=== PATIENT | female | born 1960 | race Caucasian/White ===

== ENCOUNTER 2022-10-09 08:09 | Emergency (ER) | payer SELFPAY ==
[2022-10-09 08:23] VITALS: BMI 31.6
[2022-10-09 08:27] VITALS: BP 151/86; PULSE 81; RESP 18; O2SAT 98
--- NOTE | 2022-10-09 08:46 | USCV_ITS ---
Chloe Candelario Age: 62 Gender: F : 1960 Exam Date: 10/09/2022 09:38 Ordering Phys: Rehan Chin Technologist: RA [place]am Location[place] [facility] [place]ication: RUE PAIN AND SWELLING X2 DAYS HISTORY: Upper extremity swelling. Upper extremity pain. PROCEDURES: Venous duplex imaging was performed in only the right upper extremity. The following venous structures were evaluated: internal jugular vein, subclavian vein, axillary vein, and brachial veins. In addition, the basilic vein, cephalic vein, radial vein, and ulnar vein. Serial compression, augmentation maneuvers, and spectral Doppler flow evaluation were performed. FINDINGS: No evidence of deep vein thrombosis or superficial thrombophlebitis in the right upper extremity. CONCLUSIONS No evidence of thrombus of the right upper extremity veins. Mike Velazquez MD (Electronically Signed) Final Date: 09 October 2022 10:47 S
--- NOTE | 2022-10-09 08:46 | XR_ITS ---
WS: [id number] Exam: XR shoulder RT min 2V* [id number] Date/Time of Exam: 10/09/2022 8:54 AM Reason For Exam: right shoulder pain No fracture or dislocation. Articular relationships are intact. Soft tissues are normal in appearance . XR/XR shoulder RT min 2V* [id number] IMPRESSION: 1. Negative right shoulder.
--- NOTE | 2022-10-09 08:48 | W.ED.EXTPRO ---
HPI - Extremity Problem General: Chief complaint: Extremity Injury, Upper Stated complaint: Right Shoulder pain, Hand swollen, Cant move arm Time Seen by Provider: 10/09/22 08:22 History of Present Illness: Patient is a 62-year-old female comes to the ED with right arm complaint. Symptoms started approximately 3 days ago and patient woke up with symptoms. She describes waking up and having right shoulder pain. She rates the pain a 10 out of 10. The pain radiates down right arm into hand and also radiates up shoulder and towards the neck. This morning she woke up and she was having some right hand swelling as well. She denies any injury or trauma to cause symptoms. She has been alternating ibuprofen and Tylenol to help with pain. Denies any other symptoms. Denies any history of right shoulder injuries, blood clots or DVTs. Associated symptoms: Deny chest pain, fever(s) or rash Review of Systems Const: Denies: fever(s), chills or fatigue Eyes: Denies: change in vision or eye discomfort ENMT: Denies: throat pain, odynophagia, nasal discharge or nasal congestion Card: Denies: chest pain, palpitations, edema, swelling of feet/ankles, dyspnea on exertion or orthopnea Resp: Denies: dyspnea, productive cough or non-productive cough GI: Denies: abdominal pain, nausea, vomiting, diarrhea, constipation or hematochezia : Denies: flank pain, dysuria or hematuria Musc: Reports: extremity pain (Right arm and shoulder pain) and extremity swelling (Right hand swelling); Denies: neck pain or back pain Skin/Breast: Denies: rash or new lesions Neuro: Denies: headache(s), numbness in extremities or weakness in extremities PFS ED PFSH: Medical History (Updated 10/10/22 @ 06:59 by WILLIAM Galvez) No pertinent family history Surgical History (Updated 10/10/22 @ 06:59 by WILLIAM Galvez) No pertinent past surgical history Physical Exam Const: COMMON NORMALS: patient oriented x3 HENMT: COMMON NORMALS: normocephalic HEAD & SCALP: normocephalic MOUTH: Normal oral and palatal mucosa present THROAT: posterior oropharynx normal and uvula midline Neck/C-Spine: COMMON NORMALS: supple GENERAL: Yes normal visual inspection Resp: COMMON NORMALS: normal respiratory effort, No retractions, No use of accessory muscles and clear to auscultation bilaterally AUSCULTATION: clear to auscultation bilaterally Cardio: COMMON NORMALS: regular rate, regular rhythm, S1 normal heart sound present, S2 normal heart sound present, No gallops present (Cardio), No clicks present (Cardio), No murmurs present (Cardio) and Peripheral pulses 2+ throughout RATE: regular rate RHYTHM: regular rhythm HEART SOUNDS: S1 normal heart sound present and S2 normal heart sound present PERIPHERAL PULSES: Peripheral pulses 2+ throughout GI: COMMON NORMALS: Normal to inspection, nondistended, normoactive bowel sounds present, Soft to palpation, non-tender and no masses PALPATION: Yes Soft to palpation : COMMON NORMALS: Yes no CVA tenderness BLADDER/KIDNEY EXAM: Yes no CVA tenderness Back/Pelvis: COMMON NORMALS: no CVA tenderness Extremity: RIGHT UPPER EXTREMITY: Yes shoulder joint (Tenderness to anterior aspect of AC joint) Right shoulder: Yes Right shoulder joint inspection exam (Normal inspection and no ecchymosis, swelling or deformity), Yes palpation, Yes Right shoulder joint ROM exam (Limited range of motion right shoulder due to pain) and Yes Right shoulder joint neurovascular exam (Intact) Neuro: COMMON NORMALS: patient oriented x3 GAIT: Yes Normal gait present Skin: GENERAL SKIN EXAM: dry skin Course Vital Signs: Vital signs: Vital Signs Pulse Rate 76 10/09/22 09:17 Respiratory Rate 19 H 10/09/22 09:17 Blood Pressure 151/86 10/09/22 09:17 Pulse Oximetry 97 10/09/22 09:17 Oxygen Delivery Me thod 10/09/22 09:17 MDM - Extremity (Nontraumatic) Medical Decision Making Patient is a 62-year-old female comes to the ED with right arm complaint. Symptoms started approximately 3 days ago and patient woke up with symptoms. She describes waking up and having right shoulder pain. She rates the pain a 10 out of 10. The pain radiates down right arm into hand and also radiates up shoulder and towards the neck. This morning she woke up and she was having some right hand swelling as well. She denies any injury or trauma to cause symptoms. She has been alternating ibuprofen and Tylenol to help with pain. Denies any other symptoms. Denies any history of right shoulder injuries, blood clots or DVTs. Vitals are stable. Exam patient shows tenderness over anterior aspect of the right AC joint. Limited range of motion due to pain. No ecchymosis, swelling or deformity noted. Neurovascular intact distally. Shoulder x-rays negative. Ultrasound venous duplex of right upper extremity showed no DVTs or blood clots. I placed an order with case management for patient to be referred to Ortho for follow-up on right shoulder pain. She was stable for discharge home. She understood and agreed with plan. Lab Data Radiology Impressions Shoulder X-Ray 10/09/22 08:46 IMPRESSION: 1. Negative right shoulder. Discharge Plan Discharge Patient Disposition: Home Clinical Impression: Right shoulder pain Qualifiers: Chronicity: acute Qualified Code(s): M25.511 - Pain in right shoulder Condition: Stable Prescriptions: New cyclobenzaprine 10 mg tablet 10 mg PO BID PRN (Reason: muscle spasm) Qty: 20 0RF No Action lisinopril 10 mg tablet 10 mg PO BEDTIME albuterol sulfate 0.63 mg/3 mL solution for nebulization 0.63 mg inhalation Q6H PRN (Reason: Shortness Of Breath) Aspir-81 81 mg Tablet,Delayed Release (Dr/Ec) 81 mg PO QAM ProAir HFA 90 mcg/actuation Hfa Aerosol Inhaler 2 puff INHALATION QID PRN (Reason: Shortness Of Breath) Zyrtec 10 mg Tablet 10 mg PO QAM biotin 400 mcg Tablet 200 mcg PO QAM Fish Oil (with DHA-EPA) Capsule 1 cap PO QAM Centrum Silver Women 8 mg iron-400 mcg-300 mcg Tablet 1 tab PO QAM Probiotic Blend 2 billion cell-50 mg Capsule 1 cap PO QAM Rx Instructions: give with meal/snack DuoNeb 0.5 mg-3 mg(2.5 mg base)/3 mL Solution For Nebulization 3 ml INHALATION Q6H PRN (Reason: Shortness Of Breath) Discharge Orders: Discharge ED (Routine); Ordered 10/09/22 Ordered By: Rehan Chin Discharge Diet: Regular Discharge Activity: Increase activity as tolerated Activity Restrictions/Additional Instructions: Follow-up with medical provider as directed. Case management should be contacting you in the next several days to set up an appointment with orthopedic doctor for follow-up of shoulder pain. Take medications as prescribed. Return to the ER or your medical provider if condition worsens. Please read and understand discharge instructions. Thank you for choosing [facility] for your healthcare needs today. Please realize this is an emergency room and that we are providing you with a medical screening exam and this may not be complete and all inclusive of all the testing and or work up that you may need to determine your ailment or severity of your illness. It is very important that you follow up as instructed or that you return to the Emergency Department should you have concerns or if your condition changes or worsens in any way. Coding Level of Care Code ED [employer] Product Consultant for Vikas Pennington
[2022-10-09] MEDS: HYDROcodone-acetaminophen 7.5-325 mg Tablet 1 TAB PO (09:16)
[2022-10-09 09:17] VITALS: BP 151/86; PULSE 76; RESP 19; O2SAT 97
--- NOTE | 2022-10-09 13:49 | DCPLANNER ---
Addendum entered by Tarsha Castillo 11/05/22 08:35: Patient had a follow up appointment scheduled with ortho - patient did attend appointment. Addendum entered by Tarsha Castillo 10/13/22 08:04: Patient has a follow up appointment scheduled for Thursday, November 03, 2022 at 1:[address] Chin at ortho. Original Note: cargo and ramp services manager had message to schedule a follow up appointment for patient with ortho. cargo and ramp services manager sent patients information to the front office staff at ortho. Patients information will be printed and reviewed. Clinic will call patient with appointment information.
== END 2022-10-09 11:01 | disposition home or self-care (01) ==
PROVIDERS: Emergency Provider Physician Assistant
DX: M25.511 Pain in right shoulder (principal); Z79.82 Long term (current) use of aspirin
CPT/HCPCS: 73030; 93971; 99284

== ENCOUNTER → 2022-11-11 08:48 | Outpatient (BNVA) | payer SELFPAY | PROVIDERS: Visit Provider Physician Assistant | DX: G95.9 Disease of spinal cord, unspecified (principal) | CPT/HCPCS: 72050 ==

== ENCOUNTER 2023-01-24 22:31 | Emergency (ER) | payer SELFPAY ==
[2023-01-24 22:54] VITALS: BP 151/76; PULSE 89; RESP 20; TEMP 36.7; O2SAT 95; BMI 30.7
--- NOTE | 2023-01-25 00:13 | ED_ITS ---
HPI - Skin/Abscess/Foreign Bdy General: Chief complaint: Skin/Abscess/Foreign Body Stated complaint: Bug bites Time Seen by Provider: 01/24/23 23:15 Source: patient Mode of arrival: ambulatory Limitations: no limitations History of Present Illness: Patient presents emergency department today for evaluation treatment of large areas of swelling, redness, and itching to her body. Patient states that ye sterday evening she noticed several spots of erythema which have increased in size and intensity of itching. Patient states she has allergy/allergic reaction to wasp and bee stings but does not remember being stung. She also denies feeling any bites. She denies any change in soaps, lotions, medications, or foods to her knowledge. Patient has large areas of erythema and swelling affecting her right hand, right wrist, left inferior neck, left upper arm, right posterior thigh x2. None of these areas seem to have a central puncta concerning for a bite. There is no blistering of these areas. They are warm to touch and extremely itchy. Patient states she took Benadryl at home without improvement. She denies any sensation of lip, tongue, or throat swelling. She has COPD but notes no difference in breathing from her baseline. She has not been ill recently. She denies fevers. Review of Systems General: Reports: 10 or more systems reviewed and unremarkable except in HPI and below PFSH ED PFSH: Medical History No pertinent family history Surgical History No pertinent past surgical history Physical Exam Const: COMMON NORMALS: no acute distress, average body habitus and patient oriented x3 HENMT: COMMON NORMALS: normocephalic, atraumatic, hearing grossly normal bilaterally, Normal external nose present and moist oral mucous membranes HEAD & SCALP: normocephalic and atraumatic NOSE: Normal external nose present OTHER: No angioedema. Airway patent. Eye: COMMON NORMALS: Equal, round and reactive pupils present, EOMs intact bilaterally and conjunctivae normal CONJUNCTIVA: Yes conjunctivae normal PUPIL: Yes Equal, round and reactive pupils present Neck/C-Spine: COMMON NORMALS: no JVD Lymph: LYMPHATIC: no lymphadenopathy noted Resp: COMMON NORMALS: normal respiratory effort, No retractions and No use of accessory muscles Cardio: COMMON NORMALS: no JVD, regular rate and regular rhythm RATE: regular rate RHYTHM: regular rhythm GI: COMMON NORMALS: Normal to inspection, nondistended, normoactive bowel sounds present : COMMON NORMALS: Yes no CVA tenderness BLADDER/KIDNEY EXAM: Yes no CVA tenderness Back/Pelvis: COMMON NORMALS: no CVA tenderness and thoraco-lumbar ROM normal Extremity: COMMON NORMALS: normal to inspection, full ROM and capillary refill normal Neuro: COMMON NORMALS: patient oriented x3 Psych: COMMON NORMALS: mental status grossly normal, Normal thought process present, cooperative, normal affect and activity/motor behavior normal THOUGHT PROCESS: Normal thought process present Skin: NARRATIVE SKIN EXAM: Patient has large areas of confluent erythema and swelling noted to several spots on the fingers of the right hand, right distal, anterior forearm, left lateral inferior neck, left inner, upper arm, right mid thigh, right proximal calf. These areas are warm to touch and firm. Average size approximately 6 to 7 cm in diameter. Course Vital Signs: Vital signs: Vital Signs Temperature 98.0 F 01/24/23 22:54 Pulse Rate 90 01/25/23 02:50 Respiratory Rate 18 01/25/23 02:50 Blood Pressure 151/76 01/24/23 22:54 Pulse Oximetry 96 01/25/23 02:50 Oxygen Delivery Me thod Room Air 01/25/23 00:15 MDM - Skin/Abscess/Foreign Bdy Medicial Decision Making Patient was treated with IV steroids, Pepcid, and Benadryl here in the emergency department. She did have some improvement of her symptoms including noticeable relief of itching, slight decrease in swelling, and lightening of erythema. I did get a second opinion from Dr. Batista regarding this urticarial rash. He recommends long taper dose of prednisone in addition to continued histamine use. Patient was prescribed Pepcid and I encouraged her to use both first and second generation antihistamines. I requested a follow-up appoint with her primary care provider in the next few days for a recheck. She was given strict return precautions for signs of angioedema or any difficulty breathing. Patient verbalized understanding and agreement to treatment plan. Differential Diagnosis Likely dermatophytosis, urticaria, allergic reaction to drug, cellulitis, insect bites and contact dermatitis Lab Data 01/25/23 00:52 01/25/23 00:52 Laboratory Results WBC 9.3 10^3/uL (4.0-10.0) 01/25/23 00:52 RBC 4.62 10^6/uL (4.1-5.3) 01/25/23 00:52 Hgb 13.5 g/dL (11.5-15.3) 01/25/23 00:52 Hct 41.0 % (37.0-47.0) 01/25/23 00:52 MCV 88.7 fl (81-99) 01/25/23 00:52 MCH 29.2 pg (28.0-34.0) 01/25/23 00:52 MCHC 32.9 g/dL (30.0-36.0) 01/25/23 00:52 RDW 13.2 % (12.1-15.1) 01/25/23 00:52 Plt Count 251 10^3/cmm (130-400) 01/25/23 00:52 MPV 10.7 fL (7.4-10.4) H 01/25/23 00:52 Neut % (Auto) 60.3 % 01/25/23 00:52 Lymph % (Auto) 24.3 % 01/25/23 00:52 [place] % (Auto) 10.4 % 01/25/23 00:52 Eos % (Auto) 4.3 % 01/25/23 00:52 Baso % (Auto) 0.5 % 01/25/23 00:52 Neut # (Auto) 5.62 10^3/uL (1.8-7.7) 01/25/23 00:52 Lymph # (Auto) 2.3 10^3/uL (0.8-4.8) 01/25/23 00:52 [place] # (Auto) 1.0 10^3/uL (0.2-0.9) H 01/25/23 00:52 Eos # (Auto) 0.4 10^3/uL (0.0-0.8) 01/25/23 00:52 Baso # (Auto) 0.1 10^3/uL (0.0-0.1) 01/25/23 00:52 Nucleated RBC % (auto) 0 % 01/25/23 00:52 Nucleated RBCs # 0.0 /100WBC 01/25/23 00:52 ESR 24 mm/hr (0-15) H 01/25/23 00:52 Sodium 134 mmol/L (136-145) L 01/25/23 00:52 Potassium 4.3 mmol/L (3.5-5.1) 01/25/23 00:52 Chloride 99 mmol/L (98-107) 01/25/23 00:52 Carbon Dioxide 23 mmol/L (22-29) 01/25/23 00:52 Anion Gap 16.3 (5-19) 01/25/23 00:52 BUN 10 mg/dL (8-23) 01/25/23 00:52 Creatinine 0.6 mg/dL (0.5-0.9) 01/25/23 00:52 GFR Calculation 102.0 mL/min (90-130) 01/25/23 00:52 Glucose 103 mg/dL (65-115) 01/25/23 00:52 Calculated Osmolality 277 mOsm/kg (285-295) L 01/25/23 00:52 Calcium 9.2 mg/dL (8.5-10.5) 01/25/23 00:52 Total Bilirubin 0.2 mg/dL (0.15-1.2) 01/25/23 00:52 AST 17 U/L (0-32) 01/25/23 00:52 ALT 26 U/L (0-33) 01/25/23 00:52 Alkaline Phosphatase 67 U/L (35-105) 01/25/23 00:52 C-Reactive Protein 5.5 mg/L (0.0-4.9) H 01/25/23 00:52 Total Protein 7.1 g/dL (6.6-8.7) 01/25/23 00:52 Albumin 4.4 g/dL (3.5-5.2) 01/25/23 00:52 Globulin 2.7 g/dL (1.3-4.6) 01/25/23 00:52 Discharge Plan Discharge Patient Disposition: Home Clinical Impression: Urticaria Condition: Stable Prescriptions: New prednisone 20 mg tablet See Rx Instructions .ROUTE .COMPLEX Qty: 29 0RF Rx Instructions: take 3 tabs daily for 5 days. Then take 2 tablets daily for 5 days. Then take one tablet daily for 4 days. Pepcid 20 mg tablet 20 mg PO BID 14 Days Qty: 28 0RF No Action prednisone 20 mg tablet 20 mg PO DAILY Qty: 15 0RF Rx Instructions: 60 mg x 3 days 40 mg x 2 days 20 mg x 2 days methylprednisolone [Medrol (Ramu)] 4 mg tablets,dose pack See Rx Instructions PO PER PKG DIR Qty: 21 0RF Rx Instructions: PO PER PKG DIR lisinopril 10 mg tablet 10 mg PO BEDTIME albuterol sulfate 0.63 mg/3 mL solution for nebulization 0.63 mg inhalation Q6H PRN (Reason: Shortness Of Breath) Aspir-81 81 mg Tablet,Delayed Release (Dr/Ec) 81 mg PO QAM ProAir HFA 90 mcg/actuation Hfa Aerosol Inhaler 2 puff INHALATION QID PRN (Reason: Shortness Of Breath) Zyrtec 10 mg Tablet 10 mg PO QAM biotin 400 mcg Tablet 200 mcg PO QAM Fish Oil (with DHA-EPA) Capsule 1 cap PO QAM Centrum Silver Women 8 mg iron-400 mcg-300 mcg Tablet 1 tab PO QAM Probiotic Blend 2 billion cell-50 mg Capsule 1 cap PO QAM Rx Instructions: give with meal/snack DuoNeb 0.5 mg-3 mg(2.5 mg base)/3 mL Solution For Nebulization 3 ml INHALATION Q6H PRN (Reason: Shortness Of Breath) cyclobenzaprine 10 mg tablet 10 mg PO BID PRN (Reason: muscle spasm) Qty: 20 0RF Discharge Orders: Discharge ED (Routine); Ordered 01/25/23 Ordered By: Yanci Lunsford Discharge Diet: Usual diet Discharge Activity: Increase activity as tolerated Patient Instructions: Allergic Reaction, Urticaria (ED) Activity Restrictions/Additional Instructions: Continue taking Benadryl 25 to 50 mg every 6 hours. We also encourage a daily antihistamine such as Zyrtec, Claritin, or Nicolasa. We are providing you a 2-w [place] course of prednisone as well as Pepcid. Take all of these medications daily as prescribed to help with itching and urticaria. If for any reason you develop facial swelling, lip swelling, tongue swelling, throat swelling, difficulty breathing or chest tightness you need to be seen and reevaluated in the emergency department immediately. We recommend a follow-up appoint with your primary care physician in the next 5 to 7 days for recheck. Coding Level of Care Code ED Resource Engineer for Vikas Pennington
[2023-01-25 00:15] VITALS: PULSE 92; RESP 20; O2SAT 98
[2023-01-25] MEDS: diphenhydrAMINE 50 mg/mL SDV 1mL IVP (00:54)
[2023-01-25] MEDS: dexamethasone 10 mg/mL INJ IM (00:57)
[2023-01-25 00:58] LABS: Basophils # 0.1 10^3/uL (0.0-0.1); Basophils % 0.5 %; Eosinophils # 0.4 10^3/uL (0.0-0.8); Eosinophils % 4.3 %; Hemoglobin 13.5 g/dL (11.5-15.3); Lymphocytes # 2.3 10^3/uL (0.8-4.8); Lymphocytes % 24.3 %; Mean Corpuscular HGB Conc 32.9 g/dL (30.0-36.0); Mean Corpuscular Hemoglobin 29.2 pg (28.0-34.0); Mean Corpuscular Volume 88.7 fl (81-99); Mean Platelet Volume 10.7 fL (7.4-10.4); Monocytes % 10.4 %; Neutrophils # 5.62 10^3/uL (1.8-7.7); Neutrophils % 60.3 %; Nucleated Red Blood Cells % 0 %; Platelet Count 251 10^3/cmm (130-400); Red Blood Count 4.62 10^6/uL (4.1-5.3); Red Cell Distribution Width 13.2 % (12.1-15.1); White Blood Count 9.3 10^3/uL (4.0-10.0)
[2023-01-25] MEDS: famotidine 20 mg/2 mL INJ 40 MG IVP (00:59)
[2023-01-25 01:25] LABS: Alanine Aminotransferase 26 U/L (0-33); Albumin Level 4.4 g/dL (3.5-5.2); Alkaline Phosphatase 67 U/L (35-105); Anion Gap 16.3 (5-19); Aspartate Amino Transferase 17 U/L (0-32); Blood Urea Nitrogen 10 mg/dL (8-23); C Reactive Protein 5.5 mg/L (0.0-4.9); Calcium 9.2 mg/dL (8.5-10.5); Carbon Dioxide 23 mmol/L (22-29); Chloride 99 mmol/L (98-107); Globulin 2.7 g/dL (1.3-4.6); Glucose 103 mg/dL (65-115); Osmolality Calculated 277 mOsm/kg (285-295); Potassium 4.3 mmol/L (3.5-5.1); Sodium 134 mmol/L (136-145); Total Bilirubin 0.2 mg/dL (0.15-1.2); Total Protein 7.1 g/dL (6.6-8.7)
[2023-01-25 01:34] LABS: Erythrocyte Sedimentation Rate 24 mm/hr (0-15)
[2023-01-25 02:50] VITALS: PULSE 90; RESP 18; O2SAT 96
== END 2023-01-25 02:47 | disposition home or self-care (01) ==
PROVIDERS: Emergency Provider Physician Assistant
DX: L50.9 Urticaria, unspecified (principal); Z79.82 Long term (current) use of aspirin
CPT/HCPCS: 80053; 85025; 85651; 86140; 96374; 96375; 99284; J1100; J1200; J3490

== ENCOUNTER → 2023-04-25 11:19 | Outpatient (BNVA) | payer OTHER, SELFPAY | PROVIDERS: PCP Family Medicine; Visit Provider Family Medicine | DX: T79.7XXA Traumatic subcutaneous emphysema, initial encounter (principal); X58.XXXA Exposure to other specified factors, initial encounter | CPT/HCPCS: 70360; 71046 ==

== ENCOUNTER 2023-04-25 12:13 | Emergency (ER) | payer OTHER, SELFPAY ==
[2023-04-25 12:20] VITALS: BP 160/89; PULSE 77; RESP 18; TEMP 36.6; O2SAT 97; BMI 32.5
--- NOTE | 2023-04-25 12:45 | ED_ITS ---
HPI - SOB/Dyspnea General: Chief Complaint: Shortness of Breath/Dyspnea Stated Complaint: right side neck/clavicle swollen Time Seen by Provider: 04/25/23 12:21 Source: patient Mode of arrival: ambulatory History of Present Illness: HPI Narrative: 63-year-old female presents emergency room complaining of shortness of breath right-sided rib pain when she takes a deep breath. She had a little bit of sup raclavicular swelling on the right as well she was seen in the urgent care clinic soft tissue of the neck and a chest x-ray was ordered. She was told she had bilateral ear infections when she was seen there as well. Symptoms began a couple of days ago she states yesterday she was doing some stretching and felt a popping sensation along her right ribs has had pain with inspiration since then. MD elicited complaint: shortness of breath and cough Onset (ago): day(s) (1-2) Timing: intermittent Severity: mild Exacerbating factors: coughing and inspiration Relieving factors: rest Associated symptoms: Reports chest pain, cough and fever(s) (Subjective fever yesterday); Deny abdominal pain or chest congestion Review of Systems Const: Reports: fever(s) (Subjective fever yesterday); Denies: chills Card: Reports: chest pain Resp: Reports: dyspnea and non-productive cough; Denies: chest congestion GI: Denies: abdominal pain : Denies: dysuria, urinary frequency or urinary urgency Musc: Denies: neck pain or back pain Skin/Breast: Denies: rash PFSH ED PFSH: Medical History No pertinent family history Surgical History No pertinent past surgical history Physical Exam Const: GENERAL APPEARANCE: cooperative and comfortable ORIENTATION/CONSCIOUSNESS: Yes awake, Yes oriented to person, Yes oriented to place and Yes oriented to time HENMT: COMMON NORMALS: normocephalic, atraumatic, hearing grossly normal bilaterally, external ears normal, EAC's normal and TM's normal bilaterally HEAD & SCALP: normocephalic and atraumatic EXTERNAL EAR: Yes external ears normal EXTERNAL AUDITORY CANAL: EAC's normal TYMPANIC MEMBRANE: TM's normal bilaterally Lymph: LYMPHATIC: no lymphadenopathy noted and no lymphedema noted Chest: OTHER: Reproducible pain along the lower portion of the ribs on the right side there is 1 area there is a small bruise no sign of rash no indication of zoster. Resp: COMMON NORMALS: normal respiratory effort, No retractions, No use of accessory muscles and clear to auscultation bilaterally AUSCULTATION: clear to auscultation bilaterally Cardio: COMMON NORMALS: regular rate, regular rhythm and No murmurs present (Cardio) RATE: regular rate RHYTHM: regular rhythm GI: COMMON NORMALS: Soft to palpation and No hepatosplenomegaly present AUSCULTATION: Yes normoactive bowel sounds PALPATION: Yes Soft to palpation, No Tenderness to palpation present (GI), No Guarding due to palpation present (GI) and Yes No hepatosplenomegaly present Extremity: COMMON NORMALS: normal to inspection, capillary refill normal, no clubbing, cyanosis or edema, no calf tenderness and no pedal edema Neuro: SENSORIUM/ORIENTATION: Yes oriented to person, Yes oriented to place and Yes oriented to time Skin: COMMON NORMALS: no rashes or lesions noted GENERAL SKIN EXAM: no rashes or lesions noted Course Vital Signs: Vital signs: Vital Signs Temperature 97.8 F 04/25/23 12:20 Pulse Rate 74 04/25/23 13:12 Respiratory Rate 18 04/25/23 13:12 Blood Pressure 179/100 04/25/23 13:12 Pulse Oximetry 100 04/25/23 13:12 Oxygen Delivery Me thod Room Air 04/25/23 13:08 MDM - SOB/Dyspnea Medical Decision Making Reviewed chest x-ray and soft tissue neck there is no evidence subcutaneous air on exam is good breath sounds bilaterally pain is reproducible is palpation lightly along the right anterior axillary line. No sign of zoster on exam of the skin. Pain is also reproducible with deep inspiration. No evidence of pneumothorax on the chest x-ray. Soft tissue fullness medially supraclavicular on the right side. There is some soft tissue fullness supraclavicularly on the right but there is no evidence of lymphadenopathy on palpation. No subcutaneous air on palpation or auscultation. Pain medications for musculoskeletal chest wall pain. Medical Records I reviewed the patient's medical records. Lab Data I reviewed the patient's lab results. All radiology interpretation(s) finalized by discharge Discharge Plan Discharge Patient Disposition: Home Clinical Impression: Chest pain, musculoskeletal, Fullness of supraclavicular fossa Condition: Stable Prescriptions: New tramadol 50 mg tablet 50 mg PO Q6H PRN (Reason: pain) Qty: 10 0RF No Action pravastatin 40 mg tablet 40 mg PO amoxicillin-pot clavulanate 875-125 mg tablet 1 tab PO BID 7 Days Qty: 14 0RF lisinopril 10 mg tablet 10 mg PO BEDTIME albuterol sulfate 0.63 mg/3 mL solution for nebulization 0.63 mg inhalation Q6H PRN (Reason: Shortness Of Breath) ProAir HFA 90 mcg/actuation Hfa Aerosol Inhaler 2 puff INHALATION QID PRN (Reason: Shortness Of Breath) Zyrtec 10 mg Tablet 10 mg PO QAM Fish Oil (with DHA-EPA) Capsule 1 cap PO QAM Centrum Silver Women 8 mg iron-400 mcg-300 mcg Tablet 1 tab PO QAM Probiotic Blend 2 billion cell-50 mg Capsule 1 cap PO QAM Rx Instructions: give with meal/snack cyclobenzaprine 10 mg tablet 10 mg PO BID PRN (Reason: muscle spasm) Qty: 20 0RF Discharge Orders: Discharge ED (Routine); Ordered 04/25/23 Ordered By: Sacha Finn Referrals: Vanessa Alvarado DO [Primary Care Provider] - Discharge Diet: Usual diet Discharge Activity: Increase activity as tolerated Patient Instructions: Opioid Safety, Pain Management Activity Restrictions/Additional Instructions: You are seen today after chest x-ray and x-ray of the neck were done to evaluate for possible pneumothorax. There is no pneumothorax and no subcutaneous air. Your pain is reproducible with inspiration and palpation of the right lower ribs of the chest. Use pain medications as needed. Follow-up with your primary care doctor if swelling above the right clavicle persists. Coding Level of Care Code ED Weatherization And Housing Inspector for Vikas Pennington
[2023-04-25 13:08] VITALS: BP 179/100; PULSE 74; RESP 18; O2SAT 100
[2023-04-25 13:12] VITALS: BP 179/100; PULSE 74; RESP 18; O2SAT 100
== END 2023-04-25 13:12 | disposition home or self-care (01) ==
PROVIDERS: Emergency Provider Family Medicine; PCP Family Medicine
DX: R07.89 Other chest pain (principal)
CPT/HCPCS: 99283

== ENCOUNTER 2023-04-30 08:52 | Outpatient (CLI) | payer OTHER, SELFPAY ==
[2023-04-30 09:29] VITALS: PULSE 84; RESP 18; O2SAT 98
[2023-04-30] MEDS: albuterol 2.5 mg/3 mL Neb INHALATION (09:32)
[2023-04-30 09:34] VITALS: PULSE 84
== END 2023-04-30 08:53 | disposition home or self-care (01) ==
PROVIDERS: PCP Family Medicine; Visit Provider Dermatology
DX: J44.9 Chronic obstructive pulmonary disease, unspecified (principal)
CPT/HCPCS: 94060; 94618; 94729; J7613

== ENCOUNTER 2023-05-26 13:47 | Outpatient (CLI) | payer OTHER, SELFPAY ==
--- NOTE | 2023-05-26 | US_ITS ---
WS: [id number] INDICATION: Neck swelling TECHNIQUE: Ultrasound soft tissue neck of concern FINDINGS: Ultrasound soft tissue area of concern RIGHT neck. Normal underlying subcutaneous soft tiss ues. No cystic or solid lesions. No suspicious findings. IMPRESSION: Normal exam
--- NOTE | 2023-05-26 14:22 | MM_ITS ---
WS: [id number] BILATERAL 3D TOMOSYNTHESIS DIGITAL SCREENING MAMMOGRAPHY WITH CAD CLINICAL INFORMATION: SCREENING HISTORY: Screening mammogram. No current complaints. COMPARISON: 2020 TECHNIQUE: Bilateral CC and MLO views. FINDINGS: Scattered fibroglandular densities bilaterally. No suspicious focal mass, asymmetry, calcifications, or architectural distortion. No evidence of malignancy. IMPRESSION: MM/[place] [id number] BI-RADS: 1-Negative FOLLOW UP: 1 Year Follow-up Recommend return to annual screening mammography.
== END 2023-05-26 13:48 | disposition home or self-care (01) ==
LOC: RAD 13:47
PROVIDERS: PCP Family Medicine; Visit Provider Family Medicine
DX: Z12.31 Encounter for screening mammogram for malignant neoplasm of breast (principal); R22.1 Localized swelling, mass and lump, neck
CPT/HCPCS: 76882; 77063; 77067

== ENCOUNTER 2023-07-25 10:50 | Emergency (ER) | payer OTHER, SELFPAY ==
[2023-07-25] VITALS (56 sets, daily range): BP systolic 118–178; BP diastolic 69–120; PULSE 62–103; RESP 1–25; TEMP 36.9; O2SAT 90–98
--- NOTE | 2023-07-25 10:56 | XRR_ITS ---
PROCEDURE INFORMATION: Exam: XR Chest Exam date and time: 07/25/2023 11:24 AM Age: 63 years old Clinical indication: Pain; Angina pectoris; Patient HX: Chest tightness; Low o2; HX copd TECHNIQUE: Imaging protocol: Radiologic exam of the chest. Views: 1 view. COMPARISON: CR XR chest 2V insp/exp [id number] 04/25/2023 11:42 AM FINDINGS: Lungs: Unremarkable. No consolidation. Pleural spaces: Unremarkable. No pleural effusion. No pneumothorax. Heart/Mediastinum: Borderline cardiomegaly. Bones/joints: Unremarkable. XR/XR chest 1V portable [id number] IMPRESSION: No acute findings.
--- NOTE | 2023-07-25 11:01 | ECG_ITS ---
[facility] Test Date: 2023-07-25 Pat Name: Chloe Candelario Department: Room: Gender: Female Information Technology Security Analyst: : 1960 Requested By: Armando Encinas Order Number: [id number] Krishan MD: Miles Laboy M.D. Measurements Intervals [place] Rate: 70 P: 67 VT: 152 QRS: 66 QRSD: 104 T: 58 QT: 367 QTc: 398 Interpretive Statements SINUS RHYTHM No previous ECG available for comparison Electronically Signed On 07-27-2023 7:57:12 AMERICAN HISTORY TEACHER by Miles Laboy M.D. [id number]
--- NOTE | 2023-07-25 11:19 | W.ED.CHESTPA ---
HPI - Chest Pain General: Chief Complaint: Chest Pain Stated Complaint: chest tightness, left hip and knee pain Time Seen by Provider: 07/25/23 10:55 History of Present Illness: 63-year-old female presents to the emergency department with complaints of chest tightness for the previous 2 days. She states her chest tightness is on the right side of her chest and does not radiate anywhere. She describes the pain as a 2 out of 10 tightness. She states she is also had an intermittent cough for the previous 3 weeks that is nonproductive. She states she has a history of COPD. She denies nausea vomiting dizziness or lightheaded feeling. She states she is not more short of breath than she normally is. She does have a history of hypertension and hyperlipidemia. Review of Systems General: Reports: 10 or more systems reviewed and unremarkable except in HPI and below Card: Reports: chest pain Resp: Reports: non-productive cough and wheezing [facility] ED PFSH: Medical History No pertinent family history Surgical History No pertinent past surgical history Physical Exam Narrative: EXAM NARRATIVE: Constitutional: the patient appears well nourished and with normal development. Vital signs reviewed as documented. HENMT: Normocephalic, atraumatic. Extermal ears with normal appearance without drainage. Nose without drainage, normal appearance. Mucus membranes moist. Neck is supple, No jugular venous distension, trachea is midline, no appreciable carotid bruits. No lymphadenopathy. No meningeal signs. Flexion, extension and lateral rotation is without pain. Eyes: Pupils are equal, round, reactive to light and accommodation. No scleral icterus. Extra-ocular movement are intact. Thorax is symmetrical and with equal rise and fall with respirations. Resp: Lungs are clear to auscultation. No wheezes, rales, crackles or ronchi at present. Cardio: Regular rate and rhythm. Positive S1, S2. No appreciable murmurs, rubs or gallops. GI: Abdominal exam reveals normal bowel sounds to all quadrants. No organomegaly. No obvious palpable masses noted. No hepatomegally appreciated. Soft, nontender to palpation. Extremity: Extremities are non-edematous and both femoral and pedal pulses are 2+ and equal bilaterally. Moves all extremities well, sensation in all extremities. Neuro: Alert and oriented x4, person, place, time and situation. Cranial nerves II through XII are grossly intact, there is no focal neurological deficits that I can appreciate at present. Motor strength in the upper and lower extremities are equal and bilateral 5/5. Psych: Cooperative, calm, normal thought process, appropriate judgment. Skin: No lesions, rashes. No gross abnormalities noted. Back: Symmetrical, no obvious deformity, No CVA tenderness Course Vital Signs: Vital signs: Vital Signs Temperature 98.5 F 07/25/23 10:54 Pulse Rate 78 07/25/23 15:25 Respiratory Rate 23 H 07/25/23 15:25 Blood Pressure 121/76 07/25/23 15:30 Pulse Oximetry 93 07/25/23 15:25 Oxygen Delivery Me thod Room Air 07/25/23 11:46 MDM - Chest Pain Medical Decision Making Physical exam completed and documented, I will obtain serial cardiac enzymes, serial twelve-lead EKGs, chest x-ray, CBC, CMP, urinalysis, B-type natriuretic peptide, PT/PTT/INR, and a chest x-ray. I provide cardiac dose aspirin if indicated and nitroglycerin administration if indicated. I have reviewed any pervious and pertinent medical records for assist in obtaining beneficial medical information to improved the care and treatment of the patient. Medical Records I reviewed the patient's medical records. Lab Data I reviewed the patient's lab results. 07/25/23 11:10 07/25/23 11:10 Radiology Impressions Chest X-Ray 07/25/23 10:56 IMPRESSION: No acute findings. Hip/Pelvis X-Ray 07/25/23 14:13 IMPRESSION: No acute findings. Knee X-Ray 07/25/23 14:19 IMPRESSION: No acute findings. Laboratory Results WBC 7.22 10^3/uL (3.29-11.43) 07/25/23 11:10 RBC 4.15 10^6/uL (3.85-5.65) 07/25/23 11:10 Hgb 12.20 g/dL (11.27-16.99) 07/25/23 11:10 Hct 36.3 % (36-47) 07/25/23 11:10 MCV 87.5 fl (85-98) 07/25/23 11:10 MCH 29.4 pg (27-33) 07/25/23 11:10 MCHC 33.6 g/dL (30-55) 07/25/23 11:10 RDW 12.9 % (12.1-15.1) 07/25/23 11:10 Plt Count 297 10^3/cmm (157-399) 07/25/23 11:10 MPV 10.4 fL (7.4-10.4) 07/25/23 11:10 Neut % (Auto) 58.9 % 07/25/23 11:10 Lymph % (Auto) 28.9 % 07/25/23 11:10 [place] % (Auto) 9.7 % 07/25/23 11:10 Eos % (Auto) 1.8 % 07/25/23 11:10 Baso % (Auto) 0.4 % 07/25/23 11:10 Neut # (Auto) 4.25 10^3/uL (1.8-7.7) 07/25/23 11:10 Lymph # (Auto) 2.1 10^3/uL (0.8-4.8) 07/25/23 11:10 [place] # (Auto) 0.7 10^3/uL (0.2-0.9) 07/25/23 11:10 Eos # (Auto) 0.1 10^3/uL (0.0-0.8) 07/25/23 11:10 Baso # (Auto) 0.0 10^3/uL (0.0-0.1) 07/25/23 11:10 Nucleated RBC % (auto) 0 % 07/25/23 11:10 Nucleated RBCs # 0.0 /100WBC 07/25/23 11:10 Sodium 131 mmol/L (136-145) L 07/25/23 11:10 Potassium 4.4 mmol/L (3.5-5.1) 07/25/23 11:10 Chloride 94 mmol/L (98-107) L 07/25/23 11:10 Carbon Dioxide 24 mmol/L (22-29) 07/25/23 11:10 Anion Gap 17.4 (5-19) 07/25/23 11:10 BUN 12 mg/dL (8-23) 07/25/23 11:10 Creatinine 0.5 mg/dL (0.5-0.9) 07/25/23 11:10 GFR Calculation 125.4 mL/min (90-130) 07/25/23 11:10 Glucose 96 mg/dL (65-115) 07/25/23 11:10 Calculated Osmolality 272 mOsm/kg (285-295) L 07/25/23 11:10 Calcium 10.1 mg/dL (8.5-10.5) 07/25/23 11:10 Total Bilirubin 0.2 mg/dL (0.15-1.2) 07/25/23 11:10 AST 17 U/L (0-32) 07/25/23 11:10 ALT 17 U/L (0-33) 07/25/23 11:10 Alkaline Phosphatase 78 U/L (35-105) 07/25/23 11:10 Troponin T Baseline 8 ng/L (0-10) 07/25/23 11:10 Troponin T 120 Minute 6.71 ng/L (0-10) 07/25/23 13:10 Delta Troponin T -1.29 ABS# (0-10) L 07/25/23 13:10 NT-Pro-B Natriuret Pep 64 pg/mL (0-125) 07/25/23 11:10 Total Protein 7.0 g/dL (6.6-8.7) 07/25/23 11:10 Albumin 4.4 g/dL (3.5-5.2) 07/25/23 11:10 Globulin 2.6 g/dL (1.3-4.6) 07/25/23 11:10 All radiology interpretation(s) finalized by discharge EKG Data EKG 1: Interpretation: Twelve-lead EKG obtained at 1101 and reviewed at 1101 demonstrates normal sinus rhythm with a ventricular rate of 70 bpm, NH interval 152, QRS duration 104, QT 367, QTc [address] elevation or depression to demonstrate acute ischemia or infarction at present. EKG 2: Interpretation: Twelve-lead EKG obtained at 1303 viewed 1305 demonstrates normal sinus rhythm with a ventricular rate of 72 bpm, NH interval 135, QRS duration 96, QT 383, QTc 407. There is no ST elevation or depression to demonstrate acute ischemia or infarction at present. Discharge Plan Discharge Patient Disposition: Home Clinical Impression: COPD exacerbation, Atypical chest pain, Acute myofascial pain, Arthralgia of hip, left, Arthralgia of left knee Condition: Stable Prescriptions: New prednisone 20 mg tablet 40 mg PO DAILY 5 Days Qty: 10 0RF albuterol sulfate 90 mcg/actuation HFA aerosol inhaler 2 inh inhalation Q6H PRN (Reason: shortness of breath or wheezing) Qty: 8.5 0RF meloxicam 15 mg tablet 15 mg PO DAILY Qty: 14 0RF guaifenesin 1,200 mg tablet extended release 12hr 1,200 mg PO BID Qty: 14 0RF No Action pravastatin 40 mg tablet 40 mg PO QPM ipratropium-albuterol 0.5 mg-3 mg(2.5 mg base)/3 mL solution for nebulization 3 ml INHALATION Q6H PRN (Reason: Shortness Of Breath Or Wheezing) lisinopril 20 mg tablet 20 mg PO QPM Acetaminophen Extra Strength 500 mg Tablet 1,000 mg PO QPM Vitamin D3 125 mcg (5,000 unit) Tablet 125 mcg PO DAILY Aleve 220 mg Capsule 440 mg PO DAILY Fish Oil 120 mg-180 mg- 60 mg-1,200 mg Capsule,Delayed Release(Dr/Ec) 1 cap PO DAILY albuterol sulfate 0.63 mg/3 mL solution for nebulization 0.63 mg inhalation Q6H PRN (Reason: Shortness Of Breath) albuterol sulfate [ProAir HFA] 90 mcg/actuation Hfa Aerosol Inhaler 2 puff INHALATION QID PRN (Reason: Shortness Of Breath) cetirizine [Zyrtec] 10 mg Tablet 10 mg PO QAM Centrum Silver Women 8 mg iron-400 mcg-300 mcg Tablet 1 tab PO QAM Probiotic Blend 2 billion cell-50 mg Capsule 1 cap PO QAM Rx Instructions: give with meal/snack tramadol 50 mg tablet 50 mg PO Q6H PRN (Reason: pain) Qty: 10 0RF Discharge Orders: Discharge ED (Routine); Ordered 07/25/23 Ordered By: Armando Encinas Referrals: ThonyrZackery MD [Physician] - Vanessa Alvarado DO [Primary Care Provider] - Lynnette Levi MD [Physician] - Discharge Diet: Advance as tolerated Discharge Activity: Resume usual activity Patient Instructions: Opioid Safety, Pain Management Activity Restrictions/Additional Instructions: Activity Restrictions/Additional Instructions: Thank you for choosing [facility] for your healthcare needs today. Please realize that you were seen in the Emergency Department and that we are providing you with an emergency medical screening exam and this may not be a complete and all inclusive of all the testing and or medical work-up that you may need to determine your ailment or severity of your illness. It is very important that you follow-up as instructed with your Primary care provider or Specialist for additional evaluation and to discuss your medical treatment plan. You may return to the Emergency Department should you have concerns or if your condition changes or worsens in any way. Coding Level of Care Code ED Corporate Statistical Financial Analyst for Vikas Pennington
[2023-07-25 11:21] LABS: Basophils % 0.4 %; Eosinophils # 0.1 10^3/uL (0.0-0.8); Eosinophils % 1.8 %; Hematocrit 36.3 % (36-47); Lymphocytes # 2.1 10^3/uL (0.8-4.8); Lymphocytes % 28.9 %; Mean Corpuscular HGB Conc 33.6 g/dL (30-55); Mean Corpuscular Hemoglobin 29.4 pg (27-33); Mean Corpuscular Volume 87.5 fl (85-98); Mean Platelet Volume 10.4 fL (7.4-10.4); Monocytes # 0.7 10^3/uL (0.2-0.9); Monocytes % 9.7 %; Neutrophils # 4.25 10^3/uL (1.8-7.7); Neutrophils % 58.9 %; Nucleated Red Blood Cells % 0 %; Platelet Count 297 10^3/cmm (157-399); Red Blood Count 4.15 10^6/uL (3.85-5.65); Red Cell Distribution Width 12.9 % (12.1-15.1); White Blood Count 7.22 10^3/uL (3.29-11.43)
[2023-07-25] MEDS: aspirin 81 mg Chew Tablet 324 MG PO (11:26)
[2023-07-25] MEDS: nitroglycerin 1 gm/inch oint Pkt 2 INCH TOPICAL (11:31)
[2023-07-25] MEDS: ipratropium-albuterol 3 mL Neb INHALATION (11:43)
[2023-07-25 11:45] LABS: Troponin(5th) Baseline 8 ng/L (0-10)
[2023-07-25 11:54] LABS: Alanine Aminotransferase 17 U/L (0-33); Albumin Level 4.4 g/dL (3.5-5.2); Alkaline Phosphatase 78 U/L (35-105); Anion Gap 17.4 (5-19); Aspartate Amino Transferase 17 U/L (0-32); Blood Urea Nitrogen 12 mg/dL (8-23); Calcium 10.1 mg/dL (8.5-10.5); Carbon Dioxide 24 mmol/L (22-29); Chloride 94 mmol/L (98-107); Globulin 2.6 g/dL (1.3-4.6); Glomerular Filtration Rate 125.4 mL/min (90-130); Glucose 96 mg/dL (65-115); NT Pro B Type Natriuretic Pept 64 pg/mL (0-125); Osmolality Calculated 272 mOsm/kg (285-295); Potassium 4.4 mmol/L (3.5-5.1); Sodium 131 mmol/L (136-145); Total Bilirubin 0.2 mg/dL (0.15-1.2)
--- NOTE | 2023-07-25 13:03 | ECG_ITS ---
[facility] Test Date: 2023-07-25 Pat Name: Chloe Candelario Department: Room: Gender: Female Compensation Consultant: : 1960 Requested By: Armando Encinas Order Number: [id number] Krishan MD: Miles Laboy M.D. Measurements Intervals [place] Rate: 72 P: 54 IN: 135 QRS: 49 QRSD: 96 T: 56 QT: 383 QTc: 419 Interpretive Statements SINUS RHYTHM Compared to ECG 07/25/2023 11:01:14 No significant changes Electronically Signed On 07-27-2023 8:05:20 SENIOR SECURITY ENGINEER by Miles Laboy M.D. [id number]
[2023-07-25] MEDS: ketorolac 30 mg/mL INJ IVP (13:20)
[2023-07-25 14:06] LABS: Troponin 5 2HR 6.71 ng/L (0-10)
[2023-07-25 14:09] LABS: Troponin 5 2HR Delta -1.29 ABS# (0-10)
--- NOTE | 2023-07-25 14:13 | XRR_ITS ---
PROCEDURE INFORMATION: Exam: XR Left Hip Exam date and time: 07/25/2023 2:41 PM Age: 63 years old Clinical indication: Bilateral; Patient HX: Lt knee/hip pain; No known injury TECHNIQUE: Imaging protocol: Radiologic exam of the left hip. Views: 2 or 3 views hip with pelvis when performed. COMPARISON: No relevant prior studies available. FINDINGS: Bones/joints: No acute fracture or dislocation. Joint is maintained. Lower lumbar spine degenerative changes. Soft tissues: Unremarkable. XR/XR hip LT 2-3V wo/w pel* [id number] IMPRESSION: No acute findings.
--- NOTE | 2023-07-25 14:19 | XRR_ITS ---
PROCEDURE INFORMATION: Exam: XR Left Knee Exam date and time: 07/25/2023 2:41 PM Age: 63 years old Clinical indication: Left; Patient HX: Lt knee/hip pain; No known injury TECHNIQUE: Imaging protocol: Radiologic exam of the left knee. Views: 3 views. COMPARISON: No relevant prior studies available. FINDINGS: Bones/joints: Normal. Soft tissues: Unremarkable. XR/XR knee LT 3V* [id number] IMPRESSION: No acute findings.
[2023-07-25] MEDS: methylPREDNISolone sod succ 125 mg/2 mL INJ 60 MG IVP (14:21)
== END 2023-07-25 15:36 | disposition home or self-care (01) ==
PROVIDERS: Emergency Provider Internal Medicine; PCP Family Medicine
DX: J44.1 Chronic obstructive pulmonary disease with (acute) exacerbation (principal); R07.89 Other chest pain; M79.18 Myalgia, other site; M25.552 Pain in left hip; M25.562 Pain in left knee
CPT/HCPCS: 36415; 71045; 73502; 73562; 80053; 83880; 84484; 85025; 93005; 94640; 96374; 96375; 99285; J1885; J2930

== ENCOUNTER 2023-07-31 22:41 | Emergency (ER) | payer OTHER, SELFPAY ==
--- NOTE | 2023-07-31 22:44 | XRR_ITS ---
PROCEDURE INFORMATION: Exam: XR Chest Exam date and time: 07/31/2023 10:51 PM Age: 63 years old Clinical indication: Chest pressure; Patient HX: C/O chest pain; Additional info: Cp TECHNIQUE: Imaging protocol: Radiologic exam of the chest. Views: 1 view. COMPARISON: CR (CHEST, ) 07/25/2023 11:24 AM FINDINGS: Lungs: Unremarkable. No consolidation. Pleural spaces: Unremarkable. No pleural effusion. No pneumothorax. Heart/Mediastinum: Unremarkable. No cardiomegaly. Bones/joints: Unremarkable. XR/XR chest 1V portable [id number] IMPRESSION: No acute findings.
[2023-07-31 22:54] VITALS: BP 164/93; PULSE 91; RESP 13; TEMP 36.5; O2SAT 99; BMI 30.8
--- NOTE | 2023-07-31 22:59 | ED_ITS ---
HPI - Chest Pain 2 General: Chief Complaint: Chest Pain Stated Complaint: CP Time Seen by Provider: 07/31/23 22:45 Source: patient Mode of arrival: ambulatory Limitations: no limitations History of Present Illness: 63-year-old female states she started short ving a sharp pain in the center of her chest 2 hours ago. She states the pain radiates to her back she rates the pain a 5 out of 10 currently denies any worsening proving factors she was seen here last week for the same. She denies any cough or fevers. Denies any vomiting or diarrhea Associated symptoms: Deny abdominal pain, dyspnea, fever(s), nausea or vomiting Review of Systems 2 Const: Denies: fever(s), chills, body aches or change in appetite ENMT: Denies: throat pain or dental pain Card: Reports: chest pain Resp: Denies: dyspnea GI: Denies: abdominal pain, nausea, vomiting or diarrhea Musc: Denies: neck pain or back pain Skin/Breast: Denies: rash Neuro: Denies: headache(s) PFSH ED 2 PFSH: Medical History No pertinent family history Surgical History No pertinent past surgical history Physical Exam 2 Const: COMMON NORMALS: no acute distress, patient oriented x3 and healthy appearing HENMT: COMMON NORMALS: normocephalic and atraumatic HEAD & SCALP: n ormocephalic and atraumatic Eye: COMMON NORMALS: Equal, round and reactive pupils present and EOMs intact bilaterally PUPIL: Yes Equal, round and reactive pupils present Neck/C-Spine: COMMON NORMALS: full ROM and supple Chest: COMMONS NORMALS: normal inspection of the chest and normal palpation of entire chest wall Resp: COMMON NORMALS: normal respiratory effort, No retractions, No use of accessory muscles and clear to auscultation bilaterally AUSCULTATION: clear to auscultation bilaterally Cardio: COMMON NORMALS: regular rate, regular rhythm and No murmurs present (Cardio) RATE: regular rate RHYTHM: regular rhythm GI: COMMON NORMALS: Normal to inspection, nondistended, normoactive bowel sounds present, Soft to palpation, non-tender and no masses PALPATION: Yes Soft to palpation Extremity: COMMON NORMALS: normal to inspection and full ROM Neuro: COMMON NORMALS: patient oriented x3, moves all extremities and no focal motor deficits Psych: COMMON NORMALS: mental status grossly normal, Normal thought process present and cooperative THOUGHT PROCESS: Normal thought process present Skin: COMMON NORMALS: no rashes or lesions noted and no wounds GENERAL SKIN EXAM: no rashes or lesions noted Course 2 Vital Signs: Vital signs: Vital Signs Temperature 97.7 F 07/31/23 22:54 Pulse Rate 79 08/01/23 00:04 Respiratory Rate 13 08/01/23 00:04 Blood Pressure 164/93 08/01/23 00:04 Pulse Oximetry 98 08/01/23 00:04 Oxygen Delivery Me thod Room Air 08/01/23 00:04 MDM - Chest Pain Medical Decision Making Patient presents here with chest pain CT does show a lung mass is likely causing this pain we will get her follow-up with pulmonology for likely biopsy she is to follow-up with PCP as well return if worsening. Medical Records I reviewed the patient's medical records. Lab Data I reviewed the patient's lab results. 07/31/23 23:00 07/31/23 23:00 Radiology Impressions Chest X-Ray 07/31/23 22:44 IMPRESSION: No acute findings. Chest CTA 07/31/23 23:30 IMPRESSION: 1. There is irregular soft tissue in the right hilar station measuring at least 6.1 x 3.6 cm (series 6, image 181). This soft tissue extends into the mediastinum subcarinal station. This is concerning for neoplasm. This produces significant mass effect incomplete occlusion of the pulmonary artery supplying the right upper lobe. 2. There are 2 enlarged right upper paratracheal lymph nodes measuring up to 16 mm in short axis. This is concerning for metastatic disease. 3. Partially visualized hypodense lesion in the right adrenal gland measuring at least 3.6 x 1.8 cm concerning for metastatic disease. 4. No pulmonary embolus. Laboratory Results WBC 9.20 10^3/uL (3.29-11.43) 07/31/23 23:00 RBC 4.54 10^6/uL (3.85-5.65) 07/31/23 23:00 Hgb 13.10 g/dL (11.27-16.99) 07/31/23 23:00 Hct 39.4 % (36-47) 07/31/23 23:00 MCV 86.8 fl (85-98) 07/31/23 23:00 MCH 28.9 pg (27-33) 07/31/23 23:00 MCHC 33.2 g/dL (30-55) 07/31/23 23:00 RDW 13.2 % (12.1-15.1) 07/31/23 23:00 Plt Count 338 10^3/cmm (157-399) 07/31/23 23:00 MPV 10.4 fL (7.4-10.4) 07/31/23 23:00 Neut % (Auto) 71.6 % 07/31/23 23:00 Lymph % (Auto) 20.0 % 07/31/23 23:00 [place] % (Auto) 8.0 % 07/31/23 23:00 Eos % (Auto) 0.0 % 07/31/23 23:00 Baso % (Auto) 0.1 % 07/31/23 23:00 Neut # (Auto) 6.58 10^3/uL (1.8-7.7) 07/31/23 23:00 Lymph # (Auto) 1.8 10^3/uL (0.8-4.8) 07/31/23 23:00 [place] # (Auto) 0.7 10^3/uL (0.2-0.9) 07/31/23 23:00 Eos # (Auto) 0.0 10^3/uL (0.0-0.8) 07/31/23 23:00 Baso # (Auto) 0.0 10^3/uL (0.0-0.1) 07/31/23 23:00 Nucleated RBC % (auto) 0 % 07/31/23 23:00 Nucleated RBCs # 0.0 /100WBC 07/31/23 23:00 PT 13.30 SECONDS (12.1-14.9) 07/31/23 23:00 INR 0.98 (0.8-1.2) 07/31/23 23:00 D-Dimer 1.06 ug/mLFEU (0-0.59) H 07/31/23 23:00 Sodium 132 mmol/L (136-145) L 07/31/23 23:00 Potassium 4.3 mmol/L (3.5-5.1) 07/31/23 23:00 Chloride 92 mmol/L (98-107) L 07/31/23 23:00 Carbon Dioxide 27 mmol/L (22-29) 07/31/23 23:00 Anion Gap 17.3 (5-19) 07/31/23 23:00 BUN 16 mg/dL (8-23) 07/31/23 23:00 Creatinine 0.6 mg/dL (0.5-0.9) 07/31/23 23:00 GFR Calculation 101.6 mL/min (90-130) 07/31/23 23:00 Glucose 109 mg/dL (65-115) 07/31/23 23:00 Calculated Osmolality 276 mOsm/kg (285-295) L 07/31/23 23:00 Calcium 10.2 mg/dL (8.5-10.5) 07/31/23 23:00 Total Bilirubin 0.2 mg/dL (0.15-1.2) 07/31/23 23:00 AST 12 U/L (0-32) 07/31/23 23:00 ALT 19 U/L (0-33) 07/31/23 23:00 Alkaline Phosphatase 87 U/L (35-105) 07/31/23 23:00 Troponin T Baseline < 6 ng/L (0-10) 07/31/23 23:00 Total Protein 7.8 g/dL (6.6-8.7) 07/31/23 23:00 Albumin 4.4 g/dL (3.5-5.2) 07/31/23 23:00 Globulin 3.4 g/dL (1.3-4.6) 07/31/23 23:00 Lipase 22 U/L (13-60) 07/31/23 23:00 All radiology interpretation(s) finalized by discharge EKG Data EKG 1: I personally reviewed and interpreted this EKG as follows: EKG interpretation date: 07/31/23 EKG interpretation time: 22:47 Interpretation: nsr hr [address] or t wave abnormalities qrs 96 qtc 386 Discharge Plan Discharge Patient Disposition: Home Clinical Impression: Chest pain, Lung mass Condition: Stable Prescriptions: New Naprosyn 500 mg tablet 500 mg PO BID PRN (Reason: pain) Qty: 20 0RF No Action pravastatin 40 mg tablet 40 mg PO QPM ipratropium-albuterol 0.5 mg-3 mg(2.5 mg base)/3 mL solution for nebulization 3 ml INHALATION Q6H PRN (Reason: Shortness Of Breath Or Wheezing) lisinopril 20 mg tablet 20 mg PO QPM Acetaminophen Extra Strength 500 mg Tablet 1,000 mg PO QPM Vitamin D3 125 mcg (5,000 unit) Tablet 125 mcg PO DAILY Aleve 220 mg Capsule 440 mg PO DAILY Fish Oil 120 mg-180 mg- 60 mg-1,200 mg Capsule,Delayed Release(Dr/Ec) 1 cap PO DAILY albuterol sulfate 90 mcg/actuation HFA aerosol inhaler 2 inh inhalation Q6H PRN (Reason: shortness of breath or wheezing) Qty: 8.5 0RF meloxicam 15 mg tablet 15 mg PO DAILY Qty: 14 0RF guaifenesin 1,200 mg tablet extended release 12hr 1,200 mg PO BID Qty: 14 0RF albuterol sulfate 0.63 mg/3 mL solution for nebulization 0.63 mg inhalation Q6H PRN (Reason: Shortness Of Breath) albuterol sulfate [ProAir HFA] 90 mcg/actuation Hfa Aerosol Inhaler 2 puff INHALATION QID PRN (Reason: Shortness Of Breath) cetirizine [Zyrtec] 10 mg Tablet 10 mg PO QAM Centrum Silver Women 8 mg iron-400 mcg-300 mcg Tablet 1 tab PO QAM Probiotic Blend 2 billion cell-50 mg Capsule 1 cap PO QAM Rx Instructions: give with meal/snack tramadol 50 mg tablet 50 mg PO Q6H PRN (Reason: pain) Qty: 10 0RF Discharge Orders: Discharge ED (Routine); Ordered 08/01/23 Ordered By: Shagufta Wilson Referrals: Vanessa Alvarado DO [Primary Care Provider] - Discharge Diet: Advance as tolerated Discharge Activity: Resume usual activity Patient Instructions: Chest Pain (ED) Coding Level of Care Code 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
[2023-07-31 23:06] LABS: Basophils % 0.1 %; Hematocrit 39.4 % (36-47); Lymphocytes # 1.8 10^3/uL (0.8-4.8); Mean Corpuscular HGB Conc 33.2 g/dL (30-55); Mean Corpuscular Hemoglobin 28.9 pg (27-33); Mean Corpuscular Volume 86.8 fl (85-98); Mean Platelet Volume 10.4 fL (7.4-10.4); Monocytes # 0.7 10^3/uL (0.2-0.9); Neutrophils # 6.58 10^3/uL (1.8-7.7); Neutrophils % 71.6 %; Nucleated Red Blood Cells % 0 %; Platelet Count 338 10^3/cmm (157-399); Red Blood Count 4.54 10^6/uL (3.85-5.65); Red Cell Distribution Width 13.2 % (12.1-15.1)
[2023-07-31] MEDS: aspirin 81 mg Chew Tablet 324 MG PO (23:07)
[2023-07-31] MEDS: nitroglycerin 0.4 mg sublingual Tablet SUBLINGUAL (23:08)
[2023-07-31 23:14] VITALS: BP 164/93; PULSE 93; RESP 19; O2SAT 95
[2023-07-31 23:22] LABS: INR 0.98 (0.8-1.2)
[2023-07-31 23:23] LABS: Troponin(5th) Baseline < 6 ng/L (0-10)
[2023-07-31 23:25] LABS: Alanine Aminotransferase 19 U/L (0-33); Albumin Level 4.4 g/dL (3.5-5.2); Alkaline Phosphatase 87 U/L (35-105); Anion Gap 17.3 (5-19); Aspartate Amino Transferase 12 U/L (0-32); Blood Urea Nitrogen 16 mg/dL (8-23); Calcium 10.2 mg/dL (8.5-10.5); Carbon Dioxide 27 mmol/L (22-29); Chloride 92 mmol/L (98-107); D Dimer 1.06 ug/mLFEU (0-0.59); Globulin 3.4 g/dL (1.3-4.6); Glomerular Filtration Rate 101.6 mL/min (90-130); Glucose 109 mg/dL (65-115); Lipase 22 U/L (13-60); Osmolality Calculated 276 mOsm/kg (285-295); Potassium 4.3 mmol/L (3.5-5.1); Sodium 132 mmol/L (136-145); Total Bilirubin 0.2 mg/dL (0.15-1.2); Total Protein 7.8 g/dL (6.6-8.7)
--- NOTE | 2023-07-31 23:30 | CTR_ITS ---
PROCEDURE INFORMATION: Exam: CTA Chest With Contrast Exam date and time: 07/31/2023 11:48 PM Age: 63 years old Clinical indication: Pain and abnormal findings; Abnormal diagnostic tests; Elevated d-dimer; Chest pressure; Patient HX: C/O chest pain. Dimer 1.06. History of copd. ; Additional info: Cp TECHNIQUE: Imaging protocol: Computed tomographic angiography of the chest with contrast. Exam focused on the arteries. 3D rendering (Not supervised by radiologist): MIP and/or 3D reconstructed images were created by the technologist. Radiation optimization: All CT scans at this facility use at least one of these dose optimization techniques: automated exposure control; mA and/or kV adjustment per patient size (includes targeted exams where dose is matched to clinical indication); or iterative reconstruction. Contrast material: OMNI 350; Contrast volume: 62 ml; Contrast route: INTRAVENOUS (IV); COMPARISON: CR (CHEST, ) 07/31/2023 10:51 PM RADIATION DOSE METRICS: Total DLP (mGy-cm): 472.14 FINDINGS: Pulmonary arteries: No pulmonary embolus. Aorta: Unremarkable. No aortic aneurysm. No aortic dissection. Lungs: Unremarkable. No consolidation. No masses. Pleural spaces: Unremarkable. No pneumothorax. No pleural effusion. Heart: Unremarkable. No cardiomegaly. No pericardial effusion. Lymph nodes: There are 2 enlarged right upper paratracheal lymph nodes measuring up to 16 mm in short axis. This is concerning for metastatic disease. Adrenal glands: Partially visualized hypodense lesion in the right adrenal gland measuring at least 3.6 x 1.8 cm concerning for metastatic disease. Bones/joints: Unremarkable. No acute fracture. Soft tissues: There is irregular soft tissue in the right hilar station measuring at least 6.1 x 3.6 cm (series 6, image 181). CT/CT angio chest PE protcl [id number] IMPRESSION: 1. There is irregular soft tissue in the right hilar station measuring at least 6.1 x 3.6 cm (series 6, image 181). This soft tissue extends into the mediastinum subcarinal station. This is concerning for neoplasm. This produces significant mass effect incomplete occlusion of the pulmonary artery supplying the right upper lobe. 2. There are 2 enlarged right upper paratracheal lymph nodes measuring up to 16 mm in short axis. This is concerning for metastatic disease. 3. Partially visualized hypodense lesion in the right adrenal gland measuring at least 3.6 x 1.8 cm concerning for metastatic disease. 4. No pulmonary embolus.
[2023-07-31] MEDS: iohexol 350 mg/mL 500 mL Btl (per mL) IV (23:58)
[2023-08-01 00:04] VITALS: BP 164/93; PULSE 79; RESP 13; O2SAT 98
[2023-08-01 00:43] VITALS: BP 174/114; PULSE 82; O2SAT 100
--- NOTE | 2023-08-05 11:23 | DCPLANNER ---
Message sent to Pulm- for a follow/ referral for dr gallagher- Lung Mass
== END 2023-08-01 00:48 | disposition home or self-care (01) ==
PROVIDERS: Emergency Provider Emergency Medicine; PCP Family Medicine
DX: R07.9 Chest pain, unspecified (principal); R91.8 Other nonspecific abnormal finding of lung field
CPT/HCPCS: 71045; 71275; 80053; 83690; 84484; 85025; 85378; 85610; 99285; Q9967

== ENCOUNTER 2023-08-22 20:12 | Inpatient (IN) | payer OTHER, SELFPAY ==
[2023-08-22] VITALS (8 sets, daily range): BP systolic 137–163; BP diastolic 73–111; PULSE 76–118; RESP 14–18; TEMP 36.6; O2SAT 95–100; BMI 29.7
--- NOTE | 2023-08-22 20:38 | XRR_ITS ---
PROCEDURE INFORMATION: Exam: XR Chest Exam date and time: 08/22/2023 8:45 PM Age: 63 years old Clinical indication: Patient HX: Epigastric pain; Chest pain; SOB TECHNIQUE: Imaging protocol: Radiologic exam of the chest. Views: 1 view. COMPARISON: CT angio chest PE protcl [id number] 07/31/2023 11:48 PM FINDINGS: Lungs: There is left basal atelectasis. There is a right mid lung zone linear fibrotic change. Pleural spaces: Unremarkable. No pleural effusion. No pneumothorax. Heart/Mediastinum: Soft tissue density in the right hilum with enlarged paratracheal lymph nodes, better assessed on the CT dated 07/31/2023. No cardiomegaly. Bones/joints: There is mild degenerative disease of bilateral joints. XR/XR chest 1V portable [id number] IMPRESSION: No acute cardiopulmonary process.
--- NOTE | 2023-08-22 20:39 | CTR_ITS ---
PROCEDURE INFORMATION: Exam: CT Lumbar Spine Without Contrast Exam date and time: 08/22/2023 9:17 PM Age: 63 years old Clinical indication: Patient HX: Bilateral leg pain and unable to ambulate; Additional info: Bilateral leg pain/cannot walk TECHNIQUE: Imaging protocol: Computed tomography of the lumbar spine without contrast. Radiation optimization: All CT scans at this facility use at least one of these dose optimization techniques: automated exposure control; mA and/or kV adjustment per patient size (includes targeted exams where dose is matched to clinical indication); or iterative reconstruction. COMPARISON: CT abdomen pelvis w con* [id number] 08/22/2023 9:17 PM RADIATION DOSE METRICS: Total DLP (mGy-cm): 750.78 FINDINGS: Bones/joints: There is mild degenerative disease of bilateral sacroiliac joints. No suspicious osseous lesion. No compression deformity of vertebral bodies. No spondylolisthesis. There is mild degenerative at L4-L5 and L5-S1 with posterior disc bulges. Spinal epidural space: No severe thecal sac compression. CT/CT lumbar spine recon [id number] IMPRESSION: 1. No severe thecal sac compression. 2. No metastatic osseous lesion in the lumbar spine.
--- NOTE | 2023-08-22 20:39 | CTR_ITS ---
PROCEDURE INFORMATION: Exam: CT Abdomen And Pelvis With Contrast Exam date and time: 08/22/2023 9:17 PM Age: 63 years old Clinical indication: Bloating and constipation; Abdominal pain; Generalized; Prior surgery; Surgery date: 6+ months; Surgery type: Gb; Patient HX: Diffuse abd pain with distention and constipation; Additional info: Abdominal pain, distention, leg swelling/can't ambulate TECHNIQUE: Imaging protocol: Computed tomography of the abdomen and pelvis with contrast. Radiation optimization: All CT scans at this facility use at least one of these dose optimization techniques: automated exposure control; mA and/or kV adjustment per patient size (includes targeted exams where dose is matched to clinical indication); or iterative reconstruction. Contrast material: OMNI 350; Contrast volume: 100 ml; Contrast route: INTRAVENOUS (IV); COMPARISON: CR (PELVIS, ) 07/25/2023 2:41 PM RADIATION DOSE METRICS: Total DLP (mGy-cm): 750.78 FINDINGS: Lungs: There are atelectatic changes in both lung bases. Diaphragm: There is a small hiatal hernia. Liver: There is a right hepatic dome capsular lesion measuring 1.6 x 1 cm. There is a hypodensity of the liver around the gallbladder fossa in segment 4 that can represent focal fatty infiltration versus metastasis. There is a 3 mm hypodense lesion in segment 5 of the liver, too small to characterize. Gallbladder and bile ducts: Post cholecystectomy with no biliary dilatation. Pancreas: Normal. No ductal dilation. Spleen: Normal. No splenomegaly. Adrenal glands: There are bilateral adrenal nodules measuring 3.8 x 1.7 in the right adrenal gland and 1.8 x 1.8 cm in the left adrenal gland with heterogeneous enhancement. Kidneys and ureters: There is a cortical renal cyst in the upper pole of the left kidney measuring 1.7 cm. There is mild secondary bilateral hydroureteronephrosis. No obstructing urinary stones. Stomach and bowel: There is diverticulosis of the colon with no surrounding inflammatory changes to suggest diverticulitis. Appendix: No evidence of appendicitis. Intraperitoneal space: There is anterior peritoneal nodularity, consistent with omental caking. Vasculature: There are vascular calcifications. Lymph nodes: Unremarkable. No enlarged lymph nodes. Urinary bladder: There is over distended bladder. Reproductive: The uterus and ovaries are not well visualized to be correlated with prior surgery. Bones/joints: Unremarkable. No acute fracture. Soft tissues: There is a small fat containing umbilical hernia. CT/CT abdomen pelvis w con* [id number] IMPRESSION: 1. Findings consistent with metastatic disease to the peritoneum, bilateral adrenal glands and liver, in particularly capsular deposits. 2. Post cholecystectomy with no biliary dilatation. 3. Diverticulosis with no changes of diverticulitis. COMMENTS: Consistent with the [employer]'s Incidental Findings Committee white paper (J Am Jade Radiol 2018): Any incidental renal lesion less than 1 cm or classified as too small to characterize, or any incidental cystic renal lesion characterized as simple-appearing, is likely benign. No follow-up imaging is recommended for these lesions per consensus recommendations based on imaging criteria.
[2023-08-22 20:44] LABS: Basophils % 0.3 %; Eosinophils # 0.1 10^3/uL (0.0-0.8); Eosinophils % 1.7 %; Hematocrit 30.6 % (36-47); Lymphocytes # 1.2 10^3/uL (0.8-4.8); Mean Corpuscular HGB Conc 34.3 g/dL (30-55); Mean Corpuscular Volume 84.5 fl (85-98); Mean Platelet Volume 10.1 fL (7.4-10.4); Monocytes # 1.2 10^3/uL (0.2-0.9); Monocytes % 14.9 %; Neutrophils # 5.22 10^3/uL (1.8-7.7); Neutrophils % 67.6 %; Nucleated Red Blood Cells % 0 %; Platelet Count 290 10^3/cmm (157-399); Red Blood Count 3.62 10^6/uL (3.85-5.65); Red Cell Distribution Width 12.2 % (12.1-15.1); White Blood Count 7.72 10^3/uL (3.29-11.43)
[2023-08-22] MEDS: ondansetron 2 mg/ML SDV 2 mL 4 MG IVP (20:50)
[2023-08-22] MEDS: morphine 4 mg/mL SDV 1 mL IVP (20:50)
--- NOTE | 2023-08-22 20:53 | W.ED.ABDPA2 ---
Documented by User: WILLIAM Cronin 08/22/23 22:58 HPI - Abdominal Pain General: Chief Complaint: Abdominal Pain Stated Complaint: ABD PAIN Time Seen by Provider: 08/22/23 20:13 Source: patient and family Mode of arrival: EMS Limitations: no limitations History of Present Illness: Patient is a 63-year-old female with a history of COPD, chronic smoking (quit 1 month ago), and HTN here along with family for multiple concerns. Family state over the past week patient has been complaining of severe pain in her hips and legs/thighs. Family states she has not ambulated in approximately a week secondary to excruciating pain. She has also noticed significant abdominal pain and distention. She is having back discomfort. She states she was seen here in our emergency department approximately a month ago and diagnosed with a mass to her right lung. She states this is scheduled to be biopsied on . Patient has not been running fevers. She complains of nausea but has not had any episodes of vomiting. She states she has not had a bowel movement in over 5 days. She states she has been having a great deal of difficulty urinating reporting she has to shift positions around to try and start a urine stream. She reportedly had an episode of urinary incontinence today while transferring. Previous abdominal surgeries include a complete hysterectomy. MD elicited complaint: abdominal pain Pertinent past history: none Onset (ago): day(s) Pain Consistency: constant Location: Diffuse Severity: severe Radiation: none Migration to: no migration Associated Symptoms: Reports constipation, nausea and other (leg pain/swelling/reporting she cannot ambulate); Denies chills, diarrhea, dysuria, fever(s), hematochezia, hematuria, hematemesis, melena, syncope and vomiting Review of Systems Const: Denies: fever(s), chills, body aches, fatigue or malaise Eyes: Denies: change in vision or blurry vision Card: Reports: chest pain (known R lung mass); Denies: palpitations, irregular heart rhythm, edema, swelling of feet/ankles, lightheadedness, syncope, pre-syncope, dyspnea on exertion, orthopnea, leg pain with exertion or acrocyanosis Resp: Denies: dyspnea, productive cough, non-productive cough or pain on inspiration GI: Reports: abdominal pain, nausea, constipation and other (leg pain/swelling/reporting she cannot ambulate); Denies: vomiting, hematemesis, diarrhea, hematochezia or melena : Reports: difficulty voiding and pelvic pain; Denies: flank pain, dysuria, urinary frequency or hematuria Musc: Reports: back pain; Denies: neck pain, extremity pain, extremity swelling or joint pain Skin/Breast: Denies: rash Neuro: Denies: headache(s), numbness in extremities, weakness in extremities, sensory changes or dizziness PFSH ED PFSH: Medical History Hypertension Lung mass Cervical spondylosis with myelopathy Rotator cuff impingement syndrome of right shoulder Cervical myelopathy No pertinent family history Surgical History No pertinent past surgical history Social History Smoking and tobacco/nicotine status: former use of tobacco/nicotine Alcohol intake: former Substance/Drug Use: former Physical Exam Const: COMMON NORMALS: patient oriented x3, no limitations, alert and well nourished GENERAL APPEARANCE: cooperative and in distress (appears uncomfortable secondary to pain) ORIENTATION/CONSCIOUSNESS: Yes awake, Yes oriented to person, Yes oriented to place and Yes oriented to time HENMT: COMMON NORMALS: normocephalic and atraumatic HEAD & SCALP: normal to inspection, normocephalic and atraumatic Neck/C-Spine: COMMON NORMALS: full ROM, no lymphadenopathy, supple and no meningeal signs Chest: COMMONS NORMALS: normal inspection of the chest and normal palpation of entire chest wall Resp: COMMON NORMALS: normal respiratory effort and clear to auscultation bilaterally AUSCULTATION: clear to auscultation bilaterally Cardio: COMMON NORMALS: regular rate and regular rhythm RATE: regular rate RHYTHM: regular rhythm GI: INSPECTION: Yes abdominal distension (significant ) PALPATION: Yes Tenderness to palpation present (GI) (diffusely) and Yes Guarding due to palpation present (GI) : COMMON NORMALS: Yes no CVA tenderness BLADDER/KIDNEY EXAM: Yes no CVA tenderness Back/Pelvis: COMMON NORMALS: no CVA tenderness THORACIC SPINE/UPPER BACK: No thoracic spinal tenderness and Yes paraspinal muscle tenderness LUMBAR SPINE/LOWER BACK: Yes lumbar spinal tenderness and Yes paraspinal muscle tenderness PELVIS: Yes buttocks normal and No sciatic notch tenderness SACRUM: no tenderness COCCYX: no tenderness OTHER: reporting tenderness throughout her back Extremity: NARRATIVE EXTREMITY EXAM: pt has significant discomfort with any manipulation of her bilateral LEs complaining of severe hip/back/lower abdominal pain; legs are seemingly equal color/temp; sensation appears intact; DP/PT pulses as well as femoral pulses are intact; I do not appreciate any obvious or significant edema GENERAL: Yes normal exam except as noted Neuro: COMMON NORMALS: patient oriented x3 SENSORIUM/ORIENTATION: Yes alert, Yes oriented to person, Yes oriented to place and Yes oriented to time MENINGEAL SIGNS: Yes no meningeal signs GAIT: Yes Unable to assess gait Skin: COMMON NORMALS: no rashes or lesions noted GENERAL SKIN EXAM: no rashes or lesions noted Course Vital Signs: Vital signs: Vital Signs Temperature 98.7 F 08/23/23 00:00 Pulse Rate 98 08/23/23 00:46 Respiratory Rate 18 08/23/23 01:13 Blood Pressure 130/68 08/23/23 00:00 Pulse Oximetry 97 08/23/23 01:13 Oxygen Delivery Me thod Nasal Cannula 08/23/23 00:46 Oxygen Flow Rate 2.5 08/23/23 00:46 MDM - Abdominal Pain Medical Decision Making Patient is a 63-year-old female with a history of COPD, chronic smoking history, HTN, and recently diagnosed right lung mass here for complaints of severe abdominal pain, distention, nausea, decreased appetite, constipation, urinary retention, back pain and severe bilateral leg pain. Patient arrives with stable vital signs. She is chronically on O2 for her COPD. Blood work today showing mild anemia and hyponatremia at 120. CT scans of her lumbar spine as well as abdomen/pelvis were obtained based on her history. CT of her lumbar spine is fairly unremarkable. Imaging of her abdomen and pelvis unfortunately showed findings consistent with metastatic disease to the peritoneum, adrenal glands, and liver. She has a significantly distended bladder. Minor was placed and over 2300 mL drained. She has known lesions in her chest. CTA report attached: CT/CT angio chest PE protcl [id number] IMPRESSION: 1. There is irregular soft tissue in the right hilar station measuring at least 6.1 x 3.6 cm (series 6, image 181). This soft tissue extends into the mediastinum subcarinal station. This is concerning for neoplasm. This produces significant mass effect incomplete occlusion of the pulmonary artery supplying the right upper lobe. 2. There are 2 enlarged right upper paratracheal lymph nodes measuring up to 16 mm in short axis. This is concerning for metastatic disease. 3. Partially visualized hypodense lesion in the right adrenal gland measuring at least 3.6 x 1.8 cm concerning for metastatic disease. 4. No pulmonary embolus. I have spoken to Dr. Batista who has spoken to Dr. Tinoco for admission. He will place admit orders. He has also evaluated patient. Medical Records I reviewed the patient's medical records. Lab Data I reviewed the patient's lab results. 08/22/23 20:21 08/22/23 20:21 Labs/Radiology: Radiology Impressions Chest X-Ray 08/22/23 20:38 IMPRESSION: No acute cardiopulmonary process. Abdomen/Pelvis CT 08/22/23 20:39 IMPRESSION: 1. Findings consistent with metastatic disease to the peritoneum, bilateral adrenal glands and liver, in particularly capsular deposits. 2. Post cholecystectomy with no biliary dilatation. 3. Diverticulosis with no changes of diverticulitis. COMMENTS: Consistent with the [employer]'s Incidental Findings Committee white paper (J Am Jade Radiol 2018): Any incidental renal lesion less than 1 cm or classified as too small to characterize, or any incidental cystic renal lesion characterized as simple-appearing, is likely benign. No follow-up imaging is recommended for these lesions per consensus recommendations based on imaging criteria. Lumbar Spine CT 08/22/23 20:39 IMPRESSION: 1. No severe thecal sac compression. 2. No metastatic osseous lesion in the lumbar spine. Laboratory Results WBC 7.72 10^3/uL (3.29-11.43) 08/22/23 20:21 RBC 3.62 10^6/uL (3.85-5.65) L 08/22/23 20:21 Hgb 10.50 g/dL (11.27-16.99) L 08/22/23 20:21 Hct 30.6 % (36-47) L 08/22/23 20:21 MCV 84.5 fl (85-98) L 08/22/23 20:21 MCH 29.0 pg (27-33) 08/22/23 20:21 MCHC 34.3 g/dL (30-55) 08/22/23 20:21 RDW 12.2 % (12.1-15.1) 08/22/23 20:21 Plt Count 290 10^3/cmm (157-399) 08/22/23 20:21 MPV 10.1 fL (7.4-10.4) 08/22/23 20:21 Neut % (Auto) 67.6 % 08/22/23 20:21 Lymph % (Auto) 15.0 % 08/22/23 20:21 [place] % (Auto) 14.9 % 08/22/23 20:21 Eos % (Auto) 1.7 % 08/22/23 20:21 Baso % (Auto) 0.3 % 08/22/23 20:21 Neut # (Auto) 5.22 10^3/uL (1.8-7.7) 08/22/23 20:21 Lymph # (Auto) 1.2 10^3/uL (0.8-4.8) 08/22/23 20:21 [place] # (Auto) 1.2 10^3/uL (0.2-0.9) H 08/22/23 20:21 Eos # (Auto) 0.1 10^3/uL (0.0-0.8) 08/22/23 20:21 Baso # (Auto) 0.0 10^3/uL (0.0-0.1) 08/22/23 20:21 Nucleated RBC % (auto) 0 % 08/22/23 20:21 Nucleated RBCs # 0.0 /100WBC 08/22/23 20:21 Sodium 120 mmol/L (136-145) L 08/22/23 20:21 Potassium 5.0 mmol/L (3.5-5.1) 08/22/23 20:21 Chloride 80 mmol/L (98-107) L 08/22/23 20:21 Carbon Dioxide 24 mmol/L (22-29) 08/22/23 20:21 Anion Gap 21.0 (5-19) H 08/22/23 20:21 BUN 13 mg/dL (8-23) 08/22/23 20:21 Creatinine 0.7 mg/dL (0.5-0.9) 08/22/23 20:21 GFR Calculation 85.1 mL/min (90-130) L 08/22/23 20:21 Glucose 78 mg/dL (65-115) 08/22/23 20:21 Calculated Osmolality 249 mOsm/kg (285-295) L 08/22/23 20:21 Calcium 10.7 mg/dL (8.5-10.5) H 08/22/23 20:21 Total Bilirubin 0.3 mg/dL (0.15-1.2) 08/22/23 20:21 AST 20 U/L (0-32) 08/22/23 20:21 ALT 24 U/L (0-33) 08/22/23 20:21 Alkaline Phosphatase 99 U/L (35-105) 08/22/23 20:21 Total Protein 7.2 g/dL (6.6-8.7) 08/22/23 20:21 Albumin 3.6 g/dL (3.5-5.2) 08/22/23 20:21 Globulin 3.6 g/dL (1.3-4.6) 08/22/23 20:21 Lipase 17 U/L (13-60) 08/22/23 20:21 Urine Color Yellow (Yellow) 08/22/23 21:47 Urine Appearance Sl hazy (CLEAR) A 08/22/23 21:47 Urine pH 5 (5-7) 08/22/23 21:47 Ur Specific [place] 1.015 (1.005-1.030) 08/22/23 21:47 Urine Protein Trace (Negative) 08/22/23 21:47 Urine Glucose (UA) Norm (Normal) 08/22/23 21:47 Urine Ketones 2+ (Negative) H 08/22/23 21:47 Urine Blood Trace (Negative) H 08/22/23 21:47 Urine Nitrate Negative (Negative) 08/22/23 21:47 Urine Bilirubin Neg (Negative) 08/22/23 21:47 Urine Urobilinogen Norm mg/dL (Negative) 08/22/23 21:47 Ur Leukocyte Esterase Negative (Negative) 08/22/23 21:47 Urine RBC 0-4 /hpf (0-2) H 08/22/23 21:47 Urine WBC 0-4 /hpf (0-5) H 08/22/23 21:47 Ur Squamous Epith Cells 0-4 /hpf (0-5) H 08/22/23 21:47 Amorphous Sediment Trace /hpf 08/22/23 21:47 Urine Bacteria Trace /hpf (NONE) 08/22/23 21:47 All radiology interpretation(s) finalized by discharge Discharge Plan Discharge Patient Disposition: Admitted As Inpatient Admit Provider: Rehan Tinoco Clinical Impression: Acute hyponatremia, Acute urinary retention, 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 Condition: Stable Coding Level of Care Code ED Chemistry Account Manager for Chg Fwd Documented by User: Ryan Batista DO 08/23/23 02:23 HPI - Abdominal Pain General: Chief Complaint: Abdominal Pain Stated Complaint: ABD PAIN Time Seen by Provider: 08/22/23 20:13 PFSH ED PFSH: Medical History Hypertension Lung mass Cervical spondylosis with myelopathy Rotator cuff impingement syndrome of right shoulder Cervical myelopathy No pertinent family history Surgical History No pertinent past surgical history Social History Smoking and tobacco/nicotine status: former use of tobacco/nicotine Alcohol intake: former Substance/Drug Use: former Course Vital Signs: Vital signs: Vital Signs Temperature 98.7 F 08/23/23 00:00 Pulse Rate 98 08/23/23 00:46 Respiratory Rate 18 08/23/23 01:13 Blood Pressure 130/68 08/23/23 00:00 Pulse Oximetry 97 08/23/23 01:13 Oxygen Delivery Me thod Nasal Cannula 08/23/23 00:46 Oxygen Flow Rate 2.5 08/23/23 00:46 MDM - Abdominal Pain Medical Decision Making Patient is a 63-year-old female with a history of COPD, chronic smoking history, HTN, and recently diagnosed right lung mass here for complaints of severe abdominal pain, distention, nausea, decreased appetite, constipation, urinary retention, back pain and severe bilateral leg pain. Patient arrives with stable vital signs. She is chronically on O2 for her COPD. Blood work today showing mild anemia and hyponatremia at 120. CT scans of her lumbar spine as well as abdomen/pelvis were obtained based on her history. CT of her lumbar spine is fairly unremarkable. Imaging of her abdomen and pelvis unfortunately showed findings consistent with metastatic disease to the peritoneum, adrenal glands, and liver. She has a significantly distended bladder. Minor was placed and over 2300 mL drained. She has known lesions in her chest. CTA report attached: CT/CT angio chest PE protcl [id number] IMPRESSION: 1. There is irregular soft tissue in the right hilar station measuring at least 6.1 x 3.6 cm (series 6, image 181). This soft tissue extends into the mediastinum subcarinal station. This is concerning for neoplasm. This produces significant mass effect incomplete occlusion of the pulmonary artery supplying the right upper lobe. 2. There are 2 enlarged right upper paratracheal lymph nodes measuring up to 16 mm in short axis. This is concerning for metastatic disease. 3. Partially visualized hypodense lesion in the right adrenal gland measuring at least 3.6 x 1.8 cm concerning for metastatic disease. 4. No pulmonary embolus. I have spoken to Dr. Batista who has spoken to Dr. Tinoco for admission. He will place admit orders. He has also evaluated patient. This patient was originally seen by Mrs. Tom?J CARLOS Augustin.? I agree with her history, evaluation, and treatment. Lab Data 08/22/23 20:21 08/22/23 20:21 Labs/Radiology: Radiology Impressions Chest X-Ray 08/22/23 20:38 IMPRESSION: No acute cardiopulmonary process. Abdomen/Pelvis CT 08/22/23 20:39 IMPRESSION: 1. Findings consistent with metastatic disease to the peritoneum, bilateral adrenal glands and liver, in particularly capsular deposits. 2. Post cholecystectomy with no biliary dilatation. 3. Diverticulosis with no changes of diverticulitis. COMMENTS: Consistent with the [employer]'s Incidental Findings Committee white paper (J Am Jade Radiol 2018): Any incidental renal lesion less than 1 cm or classified as too small to characterize, or any incidental cystic renal lesion characterized as simple-appearing, is likely benign. No follow-up imaging is recommended for these lesions per consensus recommendations based on imaging criteria. Lumbar Spine CT 08/22/23 20:39 IMPRESSION: 1. No severe thecal sac compression. 2. No metastatic osseous lesion in the lumbar spine. Laboratory Results WBC 7.72 10^3/uL (3.29-11.43) 08/22/23 20:21 RBC 3.62 10^6/uL (3.85-5.65) L 08/22/23 20:21 Hgb 10.50 g/dL (11.27-16.99) L 08/22/23 20:21 Hct 30.6 % (36-47) L 08/22/23 20:21 MCV 84.5 fl (85-98) L 08/22/23 20:21 MCH 29.0 pg (27-33) 08/22/23 20:21 MCHC 34.3 g/dL (30-55) 08/22/23 20:21 RDW 12.2 % (12.1-15.1) 08/22/23 20:21 Plt Count 290 10^3/cmm (157-399) 08/22/23 20:21 MPV 10.1 fL (7.4-10.4) 08/22/23 20:21 Neut % (Auto) 67.6 % 08/22/23 20:21 Lymph % (Auto) 15.0 % 08/22/23 20:21 [place] % (Auto) 14.9 % 08/22/23 20:21 Eos % (Auto) 1.7 % 08/22/23 20:21 Baso % (Auto) 0.3 % 08/22/23 20:21 Neut # (Auto) 5.22 10^3/uL (1.8-7.7) 08/22/23 20:21 Lymph # (Auto) 1.2 10^3/uL (0.8-4.8) 08/22/23 20:21 [place] # (Auto) 1.2 10^3/uL (0.2-0.9) H 08/22/23 20:21 Eos # (Auto) 0.1 10^3/uL (0.0-0.8) 08/22/23 20:21 Baso # (Auto) 0.0 10^3/uL (0.0-0.1) 08/22/23 20:21 Nucleated RBC % (auto) 0 % 08/22/23 20:21 Nucleated RBCs # 0.0 /100WBC 08/22/23 20:21 Sodium 120 mmol/L (136-145) L 08/22/23 20:21 Potassium 5.0 mmol/L (3.5-5.1) 08/22/23 20:21 Chloride 80 mmol/L (98-107) L 08/22/23 20:21 Carbon Dioxide 24 mmol/L (22-29) 08/22/23 20:21 Anion Gap 21.0 (5-19) H 08/22/23 20:21 BUN 13 mg/dL (8-23) 08/22/23 20:21 Creatinine 0.7 mg/dL (0.5-0.9) 08/22/23 20:21 GFR Calculation 85.1 mL/min (90-130) L 08/22/23 20:21 Glucose 78 mg/dL (65-115) 08/22/23 20:21 Calculated Osmolality 249 mOsm/kg (285-295) L 08/22/23 20:21 Calcium 10.7 mg/dL (8.5-10.5) H 08/22/23 20:21 Total Bilirubin 0.3 mg/dL (0.15-1.2) 08/22/23 20:21 AST 20 U/L (0-32) 08/22/23 20:21 ALT 24 U/L (0-33) 08/22/23 20:21 Alkaline Phosphatase 99 U/L (35-105) 08/22/23 20:21 Total Protein 7.2 g/dL (6.6-8.7) 08/22/23 20:21 Albumin 3.6 g/dL (3.5-5.2) 08/22/23 20:21 Globulin 3.6 g/dL (1.3-4.6) 08/22/23 20:21 Lipase 17 U/L (13-60) 08/22/23 20:21 Urine Color Yellow (Yellow) 08/22/23 21:47 Urine Appearance Sl hazy (CLEAR) A 08/22/23 21:47 Urine pH 5 (5-7) 08/22/23 21:47 Ur Specific [place] 1.015 (1.005-1.030) 08/22/23 21:47 Urine Protein Trace (Negative) 08/22/23 21:47 Urine Glucose (UA) Norm (Normal) 08/22/23 21:47 Urine Ketones 2+ (Negative) H 08/22/23 21:47 Urine Blood Trace (Negative) H 08/22/23 21:47 Urine Nitrate Negative (Negative) 08/22/23 21:47 Urine Bilirubin Neg (Negative) 08/22/23 21:47 Urine Urobilinogen Norm mg/dL (Negative) 08/22/23 21:47 Ur Leukocyte Esterase Negative (Negative) 08/22/23 21:47 Urine RBC 0-4 /hpf (0-2) H 08/22/23 21:47 Urine WBC 0-4 /hpf (0-5) H 08/22/23 21:47 Ur Squamous Epith Cells 0-4 /hpf (0-5) H 08/22/23 21:47 Amorphous Sediment Trace /hpf 08/22/23 21:47 Urine Bacteria Trace /hpf (NONE) 08/22/23 21:47 Discharge Plan Discharge Patient Disposition: Admitted As Inpatient Admit Provider: Rehan Tinoco Clinical Impression: Acute hyponatremia, Acute urinary retention, 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
[2023-08-22 20:59] LABS: Alanine Aminotransferase 24 U/L (0-33); Albumin Level 3.6 g/dL (3.5-5.2); Alkaline Phosphatase 99 U/L (35-105); Aspartate Amino Transferase 20 U/L (0-32); Blood Urea Nitrogen 13 mg/dL (8-23); Calcium 10.7 mg/dL (8.5-10.5); Carbon Dioxide 24 mmol/L (22-29); Chloride 80 mmol/L (98-107); Creatinine Clr Calc Pharmacy 91.8841; Globulin 3.6 g/dL (1.3-4.6); Glomerular Filtration Rate 85.1 mL/min (90-130); Glucose 78 mg/dL (65-115); Lipase 17 U/L (13-60); Osmolality Calculated 249 mOsm/kg (285-295); Sodium 120 mmol/L (136-145); Total Bilirubin 0.3 mg/dL (0.15-1.2); Total Protein 7.2 g/dL (6.6-8.7)
[2023-08-22] MEDS: iohexol 350 mg/mL 500 mL Btl (per mL) IV (21:21)
[2023-08-22 22:18] LABS: Add Urine Microscopic? YES; Amorphous Sediment Urine TRACE /hpf; Bacteria Urine TRACE /hpf; Bilirubin Urine Neg (Negative); Blood Urine Trace (Negative); Glucose Urine UA Norm (Normal); Ketones Urine 2+ (Negative); Leukocyte Esterase Urine Negative (Negative); Nitrate Urine Negative (Negative); Protein Urine Trace (Negative); RBC Urine 0-4 /hpf (0-2); Specific Gravity, Urine 1.015 (1.005-1.030); Squamous Epithelial Cell Urine 0-4 /hpf (0-5); Urine Appearance SL Hazy (CLEAR); Urine Color Yellow (Yellow); Urobilinogen Urine Norm (Negative); WBC Urine 0-4 /hpf (0-5); pH Urine 5 (5-7)
[2023-08-22] MEDS: HYDROmorphone 1 mg/mL INJ 1 mL IVP (22:57)
--- NOTE | 2023-08-22 22:57 | P.HP_ITS ---
Providers/Chief Complaint 2 Primary Care Provider: Vanessa Alvarado DO Chief Complaint: ABD PAIN History of Present Illness Chloe Candelario is a 63 year old female with past medical history significant for hypertension, hyperlipidemia, COPD, tobacco use disorder in early remission, and recently found lung mass presents to the emergency department with severe abdominal pain and distention. Patient reports abdominal symptoms for the past several week but states the pain/distention got severe today prompting her to seek care. She endorses associated symptoms of inability to walk due to lower extremity weakness/pain, inability to urinate, back/hip/leg/thigh pains, fatigue, nausea, and poor oral intake. Reports last bowel movement about a week ago.Denies fevers or emesis. In the emergency department, patient was found to be tachycardic with elevated blood pressure. She wearing 3 L oxygen without charted hypoxia. Labs revealed acute on chronic hyponatremia with hypoosmolality, hypochloremia, hypercalcemia, anion gap with normal bicarb, and anemia. Urinalysis with 2+ ketones. Chest x- ray with negative for acute cardiopulmonary processes. CT abdomen/pelvis revealed findings consistent with metastatic disease to the peritoneum, bilateral adrenal glands and liver. She was found to have urinary retention for which Minor catheter was placed with marked urine output. CT of the lumbar spine showed no metastatic osseous lesions in the lumbar spine and no severe thecal sac compression. Of note, patient was evaluated emergency department 07/31/2023. At that time she was found to have a right hilar station mass measuring at least 6.1 x 3.6 cm with extension into the medial side of the subcarinal station. She had lymphadenopathy with 2 enlarged right upper paratracheal lymph nodes measuring up to 1.6 cm concerning for metastatic disease. Partially visualized right adrenal lesion was noted as well. She was referred to pulmonary. Patient reports she has a biopsy scheduled for this through the [facility] system. Family is bedside and supportive. They report even before this acute illness in the past week the patient has had significant decline in function over the past month or so. She has gotten progressively weaker with difficulty ambulating even prior to her abdominal distention. Review of Systems 2 Narrative: A complete review of systems was obtained and is negative except as stated in HPI. Medications/Allergies Home Medications Medication Instructions Recorded Confirmed Last Taken Type L.acidophil-L.casei-B.bifid-B.longum-FOS 1 cap PO QAM 10/09/22 07/25/23 07/25/23 History 2 billion cell-50 mg capsule (Probiotic Blend) albuterol sulfate 0.63 mg/3 mL 0.63 mg inhalation Q6H PRN 10/09/22 07/25/23 Unknown History solution for nebulization Shortness Of Breath albuterol sulfate 90 mcg/actuation 2 puff inhalation QID PRN 10/09/22 07/25/23 Unknown History aerosol inhaler (ProAir HFA) Shortness Of Breath cetirizine 10 mg tablet (Zyrtec) 10 mg PO QAM 10/09/22 07/25/23 07/25/23 History fjckthdi-hvhg-gfxy 8 mg-folic 400 1 tab PO QAM 10/09/22 07/25/23 07/25/23 History mcg-K 50 mcg-lutein 300 mcg tablet (Centrum Silver Women) pravastatin 40 mg tablet 40 mg PO QPM 04/25/23 07/25/23 07/24/23 History tramadol 50 mg tablet 50 mg PO Q6H PRN pain #10 tabs 04/25/23 07/25/23 Unknown Rx acetaminophen 500 mg tablet 1,000 mg PO QPM 07/25/23 07/25/23 07/25/23 History (Acetaminophen Extra Strength) albuterol sulfate 90 mcg/actuation 2 inh inhalation Q6H PRN shortness 07/25/23 Unknown Rx aerosol inhaler of breath or wheezing #8.5 grams cholecalciferol (vitamin D3) 125 125 mcg PO DAILY 07/25/23 07/25/23 07/25/23 History mcg (5,000 unit) tablet (Vitamin D3) guaifenesin 1,200 mg tablet, 1,200 mg PO BID #14 tabs 07/25/23 Unknown Rx extended release 12 hr ipratropium 0.5 mg-albuterol 3 mg 3 ml inhalation Q6H PRN Shortness 07/25/23 07/25/23 Unknown History (2.5 mg base)/3 mL nebulization Of Breath Or Wheezing soln lisinopril 20 mg tablet 20 mg PO QPM 07/25/23 07/25/23 07/24/23 History meloxicam 15 mg tablet 15 mg PO DAILY #14 tabs 07/25/23 Unknown Rx naproxen sodium 220 mg capsule 440 mg PO DAILY 07/25/23 07/25/23 07/25/23 History (Aleve) enhyi-4a-lon-epa-fish oil 120 1 cap PO DAILY 07/25/23 07/25/23 Unknown History mg-180 mg-60 mg-1,200 mg capsule, DR (Fish Oil) naproxen 500 mg tablet (Naprosyn) 500 mg PO BID PRN pain #20 tabs 08/01/23 Unknown Rx Allergies Allergy/AdvReac Type Severity Reaction Status Date / Time acetaminophen [From Percocet] Allergy ALGY-Hives Verified 07/25/23 11:52 oxycodone [From Percocet] Allergy ALGY-Hives Verified 07/25/23 11:52 PFSH Acute 2 PFSH: Medical History Hypertension Lung mass Cervical spondylosis with myelopathy Rotator cuff impingement syndrome of right shoulder Cervical myelopathy No pertinent family history Surgical History No pertinent past surgical history Social History Smoking and tobacco/nicotine status: former use of tobacco/nicotine Alcohol intake: former Substance/Drug Use: former Vitals/I&O/Wt Last Vital Signs Temp 97.9 F 08/22/23 20:13 Pulse 106 H 08/22/23 22:19 Resp 18 08/22/23 22:19 BP 141/73 08/22/23 22:19 Pulse Ox 98 08/22/23 22:19 O2 Del Method Nasal Cannula 08/22/23 22:19 O2 Flow Rate 3 08/22/23 22:19 08/22/23 08/22/23 08/22/23 06:59 14:59 22:59 Output Total 1850 / 1850 Balance -1850 / -1850 Weight last 48 hrs Weight 83.461 kg Physical Exam 2 Narrative: General: Patient is awake. Appears fatigued but very pleasant. Family bedside. Head: Normocephalic. Atraumatic. Neck: No JVD. Cardiovascular: RRR. No gallops. No murmurs. Blood pressure is elevated. Lungs: Breath sounds slightly diminished bilateral bases, no use of accessory muscles, no crackles or wheezes. On nasal cannula. Skin: No jaundice. No rashes. Abdomen: Normal bowel sounds, abdomen TTP in all 4 quadrants. No guarding. Genito Urinary: Minor catheter with clear gelacio urine. Rectal: Rectal exam not performed since no symptoms indicated blood loss. Extremities: No cyanosis or clubbing. Musculoskeletal: No erythematous joints. Neurological: Moves all 4 extremities. No myoclonus. Urinary Catheter Management: Minor: Cath Placed During This Visit: yes Urinary Catheter Date of Insertion: 08/22/23 Urinary Catheter Time of Insertion: 21:45 Data 08/22/23 20:21 08/22/23 20:21 A&P Assessment and plan (1) Hyponatremia: Acute on chronic hyponatremia, associated with hypochloremia, hypercalcemia Suspect multifactorial Start normal saline at 75 mL/h Check urine electrolytes including urine urea Seizure precautions for Na of 120 and below (2) Acute urinary retention: Status post Minor catheter placement with marked urinary output Continue Minor catheter for decompression (3) Lung mass: Clinical picture is concerning for metastatic lung cancer Imaging reviewed, discussed with family/pt, advised them to bring imaging to her other providers after discharge Recommend keeping appointment for 's lung biopsy at [facility] for now (4) Debility: Patient with severe debility and physical deconditioning with marked functional decline and recent weeks to months Suspect multifactorial, was not able to ambulate in the ED Correcting electrolytes overnight, providing hydration Urinary retention has been treated with decompression via catheter Will reassess in a.m. Physical therapy evaluation requested (5) Subcutaneous emphysema: No wheezing on exam Nebs as needed Qualifiers: Encounter type: sequela Qualified Code(s): T79.7XXS - Traumatic subcutaneous emphysema, sequela (6) Hypertension: K 5.0, will hold DIVYA inhibitor Control pain As needed antihypertensives ordered Qualifiers: Hypertension type: unspecified Qualified Code(s): I10 - Essential (primary) hypertension Plan DVT prophylaxis: Heparin CODE STATUS: Full code Attestations 2 Medical Necessity Statement*: Patient presents with severe abdominal pain/distention, found to have multiple metabolic derangements and urinary retention with expected hospitalization not to cross 2 midnights. Coding Level of Care Code Acute Code for [facility] Diagnoses Hyponatremia E87.1 Acute urinary retention R33.8 Lung mass R91.8 Debility R53.81 Subcutaneous emphysema, sequela T79.7XXS Encounter type: sequela Hypertension, unspecified type I10 Hypertension type: unspecified
[2023-08-23] VITALS (17 sets, daily range): BP systolic 105–152; BP diastolic 61–84; PULSE 97–111; RESP 14–20; TEMP 36.8–37.1; O2SAT 93–97; BMI 31.6
[2023-08-23] MEDS: cyclobenzaprine 10 mg Tablet 5 MG PO ×3 (01:13→15:22)
[2023-08-23 03:14] LABS: Basophils % 0.3 %; Eosinophils # 0.2 10^3/uL (0.0-0.8); Eosinophils % 2.6 %; Hematocrit 30.6 % (36-47); Lymphocytes % 13.6 %; Mean Corpuscular HGB Conc 33.7 g/dL (30-55); Mean Corpuscular Hemoglobin 28.8 pg (27-33); Mean Corpuscular Volume 85.5 fl (85-98); Mean Platelet Volume 10.2 fL (7.4-10.4); Monocytes # 1.2 10^3/uL (0.2-0.9); Monocytes % 15.3 %; Neutrophils # 5.16 10^3/uL (1.8-7.7); Neutrophils % 67.7 %; Nucleated Red Blood Cells % 0 %; Platelet Count 317 10^3/cmm (157-399); Red Blood Count 3.58 10^6/uL (3.85-5.65); Red Cell Distribution Width 12.4 % (12.1-15.1); White Blood Count 7.63 10^3/uL (3.29-11.43)
[2023-08-23] MEDS: sodium chloride 0.9% 1,000 ML 75 ML IV ×2 (03:21→18:06)
[2023-08-23] MEDS: HYDROmorphone 1 mg/mL INJ 1 mL 0.5 MG IVP (03:32)
[2023-08-23 03:39] LABS: Anion Gap 22.6 (5-19); Blood Urea Nitrogen 12 mg/dL (8-23); Calcium 10.6 mg/dL (8.5-10.5); Carbon Dioxide 24 mmol/L (22-29); Chloride 82 mmol/L (98-107); Creatinine Clr Calc Pharmacy 91.5414; Glomerular Filtration Rate 85.1 mL/min (90-130); Glucose 76 mg/dL (65-115); Magnesium 2.1 mg/dL (1.7-2.3); Osmolality Calculated 257 mOsm/kg (285-295); Phosphorus 6.5 mg/dL (2.5-4.5); Potassium 4.6 mmol/L (3.5-5.1); Sodium 124 mmol/L (136-145)
[2023-08-23] MEDS: ipratropium-albuterol 3 mL Neb INHALATION (09:53)
--- NOTE | 2023-08-23 11:53 | MRR_ITS ---
PROCEDURE INFORMATION: Exam: MR Lumbar Spine Without and With Contrast Exam date and time: 08/23/2023 1:23 PM Age: 63 years old Clinical indication: Low back pain; Patient HX: Low back and bilateral leg pain l>r, no trauma; Additional info: Concerns for cauda equina TECHNIQUE: Imaging protocol: Magnetic resonance imaging of the lumbar spine without and with contrast. Contrast material: MULTIHANCE; Contrast volume: 19 ml; Contrast route: INTRAVENOUS (IV); COMPARISON: CT lumbar spine recon [id number] 08/22/2023 9:17 PM FINDINGS: Bones/joints: Alignment is normal. Spinal cord: Conus terminates normally at L1. L1-L2: No disc herniation. No spinal stenosis. No neural foraminal narrowing. L2-L3: No disc herniation. No spinal stenosis. No neural foraminal narrowing. L3-L4: Disc space preserved. Mild facet hypertrophy. L4-L5: Disc space preserved. Mild facet hypertrophy. L5-S1: Mildly bulging disc. Mild facet hypertrophy. Left lateral protrusion produces moderate left-sided neural foraminal narrowing. There is underlying osteophyte in this location. Soft tissues: Unremarkable. MR/MR lumbar spine wo/w con [id number] IMPRESSION: Mild degenerative changes. Most prominently there is moderate neural foraminal narrowing and left-sided L5-S1 related to broad-based lateral protrusion and underlying osteophyte. No abnormal enhancement.
[2023-08-23 12:02] LABS: Potassium, Radom Urine 23 mmol/L
[2023-08-23 12:03] LABS: Urine Random Chloride 18 mmol/L; Urine Random Sodium 18 mmol/L
[2023-08-23 12:11] LABS: Urea Nitrogen,Urine Random 421 mg/dL
[2023-08-23 12:17] LABS: Erythrocyte Sedimentation Rate 64 mm/hr (0-15)
[2023-08-23 12:28] LABS: Iron 20 ug/dL (37-145); NT Pro B Type Natriuretic Pept 85 pg/mL (0-125); Percent Saturation 9.9 % (20-50); Thyroid Stimulating Hormone 2.04 uIU/mL (0.27-4.20); Total Iron Binding Capacity 202 mcg/dl; Unsaturated Iron Binding 182 ug/dL (112-347); Vitamin B12 1986 pg/mL (232-1245)
[2023-08-23 12:45] LABS: C Reactive Protein 239.9 mg/L (0.0-4.9)
[2023-08-23] MEDS: magnesium hydroxide 30 mL UDC PO ×2 (12:52→20:38)
[2023-08-23] MEDS: dexamethasone 10 mg/mL INJ IVP (12:52)
--- NOTE | 2023-08-23 14:42 | PM.PN ---
Subjective Subjective: Admitted overnight. H&P and labs appreciated. Seen with family at bedside. Patient is in distress because of pain in her left leg. Complaining of spasmodic pain going from the groin all the way down to the toes getting aggravated on Thursday. Calf tender. Denies nausea, vomiting, headache. Has not had a bowel movement in over a week Vitals/I&O/Wt Last Vital Signs Temp 98.2 F 08/23/23 08:00 Pulse 111 H 08/23/23 09:53 Resp 20 H 08/23/23 12:53 BP 132/70 08/23/23 08:00 Pulse Ox 96 08/23/23 12:53 O2 Del Method Nasal Cannula 08/23/23 09:53 O2 Flow Rate 2.5 08/23/23 09:53 08/22/23 08/23/23 08/23/23 22:59 06:59 14:59 Intake Total 120 / 120 Output Total 1850 / 1850 600 / 2450 Balance -1850 / -1850 -600 / -2450 120 / 120 Weight last 48 hrs Weight 84.935 kg Weight 85.548 kg Weight 86.268 kg Weight 83.461 kg Physical Exam Narrative: General: Patient is awake. Appears fatigued but very pleasant. Family bedside. Head: Normocephalic. Atraumatic. Neck: No JVD. Cardiovascular: RRR. No gallops. No murmurs. Blood pressure is elevated. Lungs: Breath sounds slightly diminished bilateral bases, no use of accessory muscles, no crackles or wheezes. On nasal cannula. Skin: No jaundice. No rashes. Abdomen: Normal bowel sounds, abdomen TTP in all 4 quadrants. No guarding. Genito Urinary: Minor catheter with clear gelacio urine. Rectal: Rectal exam not performed since no symptoms indicated blood loss. Extremities: No cyanosis or clubbing. Able to wiggle toes in both feet, power, tone could not be examined because of tenderness and pain in the left groin down to the espana Musculoskeletal: No erythematous joints. Neurological: Moves all 4 extremities. No myoclonus. Urinary Catheter Management: Minor: Cath Placed During This Visit: yes Reason for Continuing Indwelling Catheter: Acute Urinary Retention or Obstruction Urinary Catheter Date of Insertion: 08/22/23 Urinary Catheter Time of Insertion: 21:45 Data 08/23/23 02:21 08/23/23 02:21 A&P Assessment and plan (1) Hyponatremia: Acute on chronic hyponatremia, associated with hypochloremia, hypercalcemia Suspect multifactorial dyspnea combination of dehydration and mild SIADH. Add urine lites to the sample from last night. Check lipid panel, A1c. Blood sugars appreciated. Slightly improving today. Continue with IV hydration. Repeat BMP in afternoon. (2) Acute urinary retention: Unknown cause. Status post Minor catheter placement with marked urinary output Continue Minor catheter for decompression (3) Hilar mass: Seen on CTA done on July 31. Following up with physician at [facility]. Plan for possible biopsy on August 31. CT abdomen pelvis done on admission shows findings consistent with metastatic disease to peritoneum, bilateral adrenal glands and liver with concerns for capsular deposits. Patient willing to have further workup done at [facility] and wants to follow-up with Dr. Montes. Will confirm tomorrow once available with Dr. Montes and radiology for possible biopsy of the liver mass. 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 Physical therapy evaluation requested (6) Subcutaneous emphysema: No wheezing on exam Pulmicort twice daily, DuoNebs every 6 hours. Qualifiers: Encounter type: sequela Qualified Code(s): T79.7XXS - Traumatic subcutaneous emphysema, sequela (7) Hypertension: Goal blood pressure less than 140/90 mmHg. So far blood pressure stable off antihypertensives. Continue to monitor. Qualifiers: Hypertension type: unspecified Qualified Code(s): I10 - Essential (primary) hypertension (8) Constipation: Plan Patient presented to the ER with concerns for urinary retention, not able to have a bowel movement for over a week, CT abdomen pelvis not concerning for significant stool burden, complaining of significant pain going from left groin down to left ankle with tenderness in the espana, pain being spasmodic getting aggravated even on moving the right leg though power could not be assessed because of spasmodic pain. Given concerns for metastatic disease with peritoneal involvement cannot rule out possible cauda equina. Patient does give history of jerky trauma while walking around with her dog. Check ESR, CRP, vitamin B12 and TSH levels For now we will start patient on dexamethasone 10 mg IV 6-hour tail MRI lumbar with and without contrast can be done. Check, D-dimer and if elevated will check lower limb Doppler to rule out DVT. CT hip. Dilaudid 1 mg every 4 hours as needed for pain, continue with Flexeril p.o. 3 times daily as needed Constipation: Unknown cause. Start on aggressive bowel regimen with milk of magnesia and senna and Colace for now. CT abdomen pelvis appreciated. MRI as above. DVT prophylaxis: Lovenox CODE STATUS: Full code Regular diet. Attestations Medical Necessity Statement*: Chloe Candelario is being changed to inpatient status as stay will now exceed 2 midnights. 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
--- NOTE | 2023-08-23 14:47 | USR_ITS ---
PROCEDURE INFORMATION: Exam: US Duplex Lower Extremity Veins, Bilateral Exam date and time: 08/23/2023 4:43 PM Age: 63 years old Clinical indication: Pain; Leg, upper and leg, lower; Left; Right; Additional info: Dvt left leg TECHNIQUE: Imaging protocol: Real-time duplex ultrasound of the bilateral extremities with 2-D hartman scale, color Doppler flow and spectral waveform analysis including responses to compression and other maneuvers (when performed) with image documentation. Complete exam focused on the lower extremity veins. COMPARISON: US soft tissue/extremity [id number] 05/26/2023 2:36 PM FINDINGS: Right deep veins: Unremarkable. The common femoral, femoral, proximal profunda femoral and popliteal veins are patent without thrombus. Normal Doppler waveforms. Normal compressibility and/or augmentation response. Left deep veins: Unremarkable. The common femoral, femoral, proximal profunda femoral and popliteal veins are patent without thrombus. Normal Doppler waveforms. Normal compressibility and/or augmentation response. Superficial veins: Bilateral saphenofemoral junctions are patent without thrombus. Soft tissues: Unremarkable. US/[place] [id number] IMPRESSION: No evidence of deep vein thrombosis.
[2023-08-23] MEDS: morphine 4 mg/mL SDV 1 mL 1 MG IVP ×2 (15:22→20:36)
[2023-08-23 15:33] LABS: Anion Gap 20.8 (5-19); Blood Urea Nitrogen 10 mg/dL (8-23); Calcium 9.8 mg/dL (8.5-10.5); Carbon Dioxide 24 mmol/L (22-29); Chloride 86 mmol/L (98-107); Creatinine Clr Calc Pharmacy 127.1634; Glomerular Filtration Rate 125.4 mL/min (90-130); Glucose 126 mg/dL (65-115); Osmolality Calculated 263 mOsm/kg (285-295); Potassium 4.8 mmol/L (3.5-5.1); Sodium 126 mmol/L (136-145)
[2023-08-23 15:35] LABS: D Dimer 9.01 ug/mLFEU (0-0.59)
[2023-08-23] MEDS: sennosides-docusate Tablet 1 TAB PO (18:06)
[2023-08-23] MEDS: dexamethasone 4 mg/mL INJ IVP (18:48)
[2023-08-23] MEDS: enoxaparin 40 mg/0.4 mL Syringe SUBCUT (20:38)
[2023-08-24] VITALS (17 sets, daily range): BP systolic 141–150; BP diastolic 76–91; PULSE 80–104; RESP 15–18; TEMP 36.7–37.1; O2SAT 2–98
[2023-08-24] MEDS: dexamethasone 4 mg/mL INJ IVP ×3 (00:37→12:44)
[2023-08-24] MEDS: cyclobenzaprine 10 mg Tablet 5 MG PO ×4 (00:37→23:30)
[2023-08-24] MEDS: morphine 4 mg/mL SDV 1 mL 1 MG IVP ×4 (02:02→19:42)
[2023-08-24 03:05] LABS: Basophils % 0.1 %; Hematocrit 30.3 % (36-47); Lymphocytes # 0.6 10^3/uL (0.8-4.8); Lymphocytes % 7.7 %; Mean Corpuscular HGB Conc 33.7 g/dL (30-55); Mean Corpuscular Hemoglobin 28.5 pg (27-33); Mean Corpuscular Volume 84.6 fl (85-98); Monocytes # 0.4 10^3/uL (0.2-0.9); Monocytes % 5.5 %; Neutrophils # 6.23 10^3/uL (1.8-7.7); Neutrophils % 86.1 %; Nucleated Red Blood Cells % 0 %; Platelet Count 334 10^3/cmm (157-399); Red Blood Count 3.58 10^6/uL (3.85-5.65); Red Cell Distribution Width 12.3 % (12.1-15.1); White Blood Count 7.24 10^3/uL (3.29-11.43)
[2023-08-24 03:26] LABS: Chol HDL Ratio 4.94 mg/dL (0.0-4.40); Cholesterol 173 mg/dL (0-200); HDL Cholesterol 35 mg/dL (60-100); LDL Cholesterol Calculated 119 mg/dL (50-129); Magnesium 2.1 mg/dL (1.7-2.3); Phosphorus 4.6 mg/dL (2.5-4.5); Triglycerides 95 mg/dL (0-150); VLDL Cholestrol Calculation 19 mg/dL (0-30)
[2023-08-24 03:27] LABS: Alanine Aminotransferase 24 U/L (0-33); Albumin Level 3.2 g/dL (3.5-5.2); Alkaline Phosphatase 94 U/L (35-105); Anion Gap 15.2 (5-19); Aspartate Amino Transferase 20 U/L (0-32); Blood Urea Nitrogen 10 mg/dL (8-23); Calcium 9.4 mg/dL (8.5-10.5); Carbon Dioxide 26 mmol/L (22-29); Chloride 89 mmol/L (98-107); Creatinine Clr Calc Pharmacy 158.9543; Globulin 3.4 g/dL (1.3-4.6); Glomerular Filtration Rate 162.3 mL/min (90-130); Glucose 134 mg/dL (65-115); Osmolality Calculated 263 mOsm/kg (285-295); Potassium 4.2 mmol/L (3.5-5.1); Sodium 126 mmol/L (136-145); Total Bilirubin 0.3 mg/dL (0.15-1.2); Total Protein 6.6 g/dL (6.6-8.7)
[2023-08-24 04:02] LABS: Folate Level > 20.0 ng/mL (4.8-37.3)
[2023-08-24] MEDS: sodium chloride 0.9% 1,000 ML 75 ML IV ×2 (06:35→20:19)
--- NOTE | 2023-08-24 06:37 | XRR_ITS ---
PROCEDURE INFORMATION: Exam: XR Left Hip Exam date and time: 08/24/2023 2:41 PM Age: 63 years old Clinical indication: Left hip; Patient HX: Lt hip pain abn CT TECHNIQUE: Imaging protocol: Radiologic exam of the left hip. Views: 1 view hip with pelvis when performed. COMPARISON: CT hip LT w con [id number] 08/24/2023 8:17 AM FINDINGS: Bones/joints: Acute fracture of the subcapital femoral neck on the left with mild displacement and impaction. The intertrochanteric and subtrochanteric regions are grossly intact. Background of moderate osteoarthritis. Soft tissues: No gross soft tissue abnormality. XR/XR hip LT 1V wo/w pel [id number] IMPRESSION: 1. Acute fracture of the subcapital femoral neck on the left.
--- NOTE | 2023-08-24 06:45 | P.CONIM_ITS ---
Providers/Reason For Consult 2 Consulting Physician/Specialty*: Hospitalist Reason for Consult*: Back and leg pain Attending Physician: Jean Carlos Daniel MD Primary Care Provider: Vanessa Alvarado DO History of Present Illness History of Present Illness Chloe Candelario is a 63 year old female asked to see regarding her left leg and back pain. Patient's been complaining of back and leg pain. When she moves her leg this when the pain is worse. Patient CT shows metastatic disease to her abdomen. Review of Systems 2 Const: Denies: fever(s), chills, body aches, fatigue or malaise Eyes: Denies: change in vision or blurry vision Card: Reports: chest pain (known R lung mass); Denies: palpitations, irregular heart rhythm, edema, swelling of feet/ankles, lightheadedness, syncope, pre-syncope, dyspnea on exertion, orthopnea, leg pain with exertion or acrocyanosis Resp: Denies: dyspnea, productive cough, non-productive cough or pain on inspiration GI: Reports: abdominal pain, nausea, constipation and other (leg pain/swelling/reporting she cannot ambulate); Denies: vomiting, hematemesis, diarrhea, hematochezia or melena : Reports: difficulty voiding and pelvic pain; Denies: flank pain, dysuria, urinary frequency or hematuria Musc: Reports: back pain; Denies: neck pain, extremity pain, extremity swelling or joint pain Skin/Breast: Denies: rash Neuro: Denies: headache(s), numbness in extremities, weakness in extremities, sensory changes or dizziness Medications/Allergies Home Medications Medication Instructions Recorded Confirmed Last Taken Type L.acidophil-L.casei-B.bifid-B.longum-FOS 1 cap PO QAM 10/09/22 08/23/23 08/16/23 08:00 History 2 billion cell-50 mg capsule (Probiotic Blend) cetirizine 10 mg tablet (Zyrtec) 10 mg PO QAM PRN seasonal allergies 10/09/22 08/23/23 07/25/23 History chjiqxgp-lcfo-ckjo 8 mg-folic 400 1 tab PO QAM 10/09/22 08/23/23 08/16/23 08:00 History mcg-K 50 mcg-lutein 300 mcg tablet (Centrum Silver Women) pravastatin 40 mg tablet 40 mg PO QPM 04/25/23 08/23/23 08/21/23 18:00 History tramadol 50 mg tablet 50 mg PO Q6H PRN pain #10 tabs 04/25/23 08/23/23 08/22/23 08:00 Rx acetaminophen 500 mg tablet 1,000 mg PO QPM 07/25/23 08/23/23 08/16/23 History (Acetaminophen Extra Strength) albuterol sulfate 90 mcg/actuation 2 inh inhalation Q6H PRN shortness 07/25/23 08/23/23 Unknown Rx aerosol inhaler of breath or wheezing #8.5 grams cholecalciferol (vitamin D3) 125 125 mcg PO DAILY 07/25/23 08/23/23 08/16/23 08:00 History mcg (5,000 unit) tablet (Vitamin D3) guaifenesin 1,200 mg tablet, 1,200 mg PO BID #14 tabs 07/25/23 08/23/23 08/16/23 08:00 Rx extended release 12 hr ipratropium 0.5 mg-albuterol 3 mg 3 ml inhalation Q6H PRN Shortness 07/25/23 08/23/23 08/22/23 13:00 History (2.5 mg base)/3 mL nebulization Of Breath Or Wheezing soln lisinopril 20 mg tablet 20 mg PO QPM 07/25/23 08/23/23 08/21/23 18:00 History naproxen sodium 220 mg capsule 440 mg PO DAILY 07/25/23 08/23/23 07/25/23 History (Aleve) kncpa-7r-qpv-epa-fish oil 120 1 cap PO DAILY 07/25/23 08/23/23 08/16/23 08:00 History mg-180 mg-60 mg-1,200 mg capsule, DR (Fish Oil) naproxen 500 mg tablet (Naprosyn) 500 mg PO BID PRN pain #20 tabs 08/01/23 08/23/23 08/16/23 Rx Allergies Allergy/AdvReac Type Severity Reaction Status Date / Time oxycodone [From Percocet] Allergy ALGY-Hives Verified 07/25/23 11:52 Current Medications Generic Name Dose Route Start Last Admin Trade Name Freq PRN Reason Stop Dose Admin Albuterol/Ipratropium 3 ml 08/22/23 23:50 08/23/23 09:53 Ipratropium-Albuterol 3 Ml Neb INHALATION 3 ml Q4H PRN Administration SHORTNESS OF BREATH Atorvastatin Calcium 20 mg 08/23/23 18:00 08/23/23 18:09 Atorvastatin 40 Mg Tablet PO Not Given QPM JAMES Budesonide 0.5 mg 08/23/23 20:00 08/23/23 20:46 Budesonide 0.5 Mg/2 Ml Neb INHALATION Not Given BID.RESPIRATORY JAMES Cyclobenzaprine HCl 5 mg 08/23/23 00:53 08/24/23 00:37 Cyclobenzaprine 10 Mg Tablet PO 5 mg TID PRN Administration MUSCLE SPASMS Dexamethasone 4 mg 08/23/23 18:30 08/24/23 06:35 Dexamethasone 4 Mg/Ml Inj IVP 4 mg Q6H JAMES Administration Enoxaparin Sodium 40 mg 08/23/23 21:00 08/23/23 20:38 Enoxaparin 40 Mg/0.4 Ml Syringe SUBCUT 40 mg BEDTIME JAMES Administration Hydromorphone HCl 1 mg 08/23/23 11:34 08/24/23 00:38 Hydromorphone 4 Mg Tablet PO 1 mg Q4H PRN Administration PAIN Sodium Chloride 1,000 mls @ 75 mls/hr 08/23/23 03:00 08/24/23 06:35 Sodium Chloride 0.9% IV 75 mls/hr .[id number] JAMES Administration Magnesium Hydroxide 30 ml 08/23/23 21:00 08/23/23 20:38 Magnesium Hydroxide 30 Ml Udc PO 30 ml BEDTIME JAMES Administration Morphine Sulfate 1 mg 08/23/23 15:08 08/24/23 02:02 Morphine 4 Mg/Ml Sdv 1 Ml IVP 1 mg Q4H PRN Administration SEVERE PAIN Senna/Docusate Sodium 1 tab 08/23/23 18:00 08/23/23 18:06 Sennosides-Docusate Tablet PO 1 tab BID JAMES Administration PFSH Acute 2 PFSH: Medical History Hypertension Lung mass Cervical spondylosis with myelopathy Rotator cuff impingement syndrome of right shoulder Cervical myelopathy No pertinent family history Surgical History No pertinent past surgical history Social History Smoking and tobacco/nicotine status: former use of tobacco/nicotine Alcohol intake: former Substance/Drug Use: former Vitals/I&O/Wt Last Vital Signs Temp 98.0 F 08/24/23 04:00 Pulse 90 08/24/23 04:00 Resp 18 08/24/23 02:02 BP 149/89 08/24/23 04:00 Pulse Ox 95 08/24/23 04:00 O2 Del Method Nasal Cannula 08/24/23 04:00 O2 Flow Rate 2 08/23/23 20:37 08/23/23 08/23/23 08/24/23 14:59 22:59 06:59 Intake Total 360 / 360 1240 / 1600 936.25 / 2536.25 Output Total 900 / 900 850 / 1750 Balance 360 / 360 340 / 700 86.25 / 786.25 Weight last 48 hrs Weight 193 lb Weight 187 lb 4 oz Weight 188 lb 9.6 oz Weight 190 lb 3 oz Weight 184 lb Physical Exam 2 Narrative: Patient's whole leg hurts. When I touched her do logroll she complained of pain. Pain with logroll of her hip. Urinary Catheter Management: Minor: Cath Placed During This Visit: yes Reason for Continuing Indwelling Catheter: Other Urinary Catheter Date of Insertion: 08/22/23 Urinary Catheter Time of Insertion: 21:45 Data 08/24/23 02:26 08/24/23 02:26 A&P Assessment and plan (1) Back pain: Patient MRI of her lumbar spine is reviewed. Shows minimal degenerative changes. CT scan of the abdomen and pelvis was reviewed looks like she has cystic lesions in her hips bilaterally. At this point I recommend an x-ray and MRI of the left hip. CT scan of the left hip was already ordered. I do not feel like this is coming from her back I think it is coming from her hip. Qualifiers: Back pain location: low back pain Chronicity: acute Back pain laterality: left Sciatica presence: without sciatica Qualified Code(s): M54.50 - Low back pain, unspecified Coding Level of Care Code Acute Code for [facility] Fwd Diagnoses Acute left-sided low back pain without sciatica M54.50 Back pain location: low back pain Chronicity: acute Back pain laterality: left Sciatica presence: without sciatica
--- NOTE | 2023-08-24 06:50 | MR_ITS ---
WS: [id number] EXAMINATION: MR hip LT wo con* [id number] ORDER DATE: 08/24/2023 3:15 PM COMPARISON: CT 08/24/2023 HISTORY: hip pain CONTRAST: None. TECHNIQUE: Coronal STIR of the Pelvis. Coronal proton density, coronal T1, axial T2 fat sat, axial T1 , sagittal T2 fat sat, and sagittal T1 performed of the hip. After contrast, axial T1 fat sat, coron al T1 fat sat, and sagittal T1 fat sat were performed. FINDINGS: Again seen is the pathologic fracture with impaction LEFT femoral neck extending into the LEFT femora l head. Suspected pathologic fracture with diffuse abnormal bone marrow signal suspicious for metasta tic disease. Trace joint effusion. Soft tissue edema in the LEFT hip soft tissues. Tiny hairline fracture involving the subcapital RIGHT femoral head. Diffuse edema within the RIGHT hi p. Findings suspicious for pathologic fracture. Additional T2 hyperintense lesions in the bony pelvis suspicious for metastatic disease. This involves the iliac wings, proximal intratrochanteric femurs, acetabulum and pubic rami bilaterally. Diffuse soft tissue edema about both hips and gluteal soft ti ssues. Findings could be further evaluated with bone scan. Minor catheter. Sigmoid diverticulosis. Fa t-containing LEFT inguinal hernia. IMPRESSION: 1. Again seen is the pathologic fracture with impaction LEFT femoral neck extending into the LEFT fe moral head 2. Small hairline fracture involving the subcapital RIGHT femoral head suspicious for pathologic fra cture. Diffuse edema in both femoral necks with suspected metastatic lesions 3. Additional punctate suspected metastatic lesions in the bony pelvis described above. 4. Diffuse soft tissue edema involving the pelvic and hip soft tissues extending into the gluteus bi laterally.
[2023-08-24] MEDS: sennosides-docusate Tablet 1 TAB PO ×2 (07:41→17:46)
[2023-08-24] MEDS: iohexol 350 mg/mL 500 mL Btl (per mL) IV (08:30)
--- NOTE | 2023-08-24 08:43 | PC.CHAP ---
Pastoral Care Encounter/Spiritual Assessment Type of Contact [] Declined washhouse hand visit [] Patient/Family/Request visit [] Outpatient visit [] Follow-up visit [] Physician referral [] Code/Alert [x] Routine visit [] Staff referral [] Actively dying [] Patient sleeping [x] Family support [] [] Out of room [] Palliative care [] [] Receiving care in room [] Pre-surgical visit [] Trauma [] Long length of stay [] ICU visit [] Other: Relational/Emotional Strength [x] Patient feels connected with others/family/visitors/staff [] Distress [] Loneliness/isolation [] Abandonment Spirituality of Patient [x] Person of Mita [] Attends Mormon of their Mita [x] Believes in Prayer [] Reads Bible or Cheondoism materials [] There are Spiritual issues to be addressed Supervisor Vat House Interventions [x] Prayer [x] Active listening [] Non-anxious presence [x] Spiritual/emotional support [] Crisis/trauma care [] Spiritual counseling [] Bereavement support [] Provided bereavement packet [] Provided Bible/devotional materials [] Provided toy/stuffed animal, coloring book to patient or family member [] Provided Communion [] Anointing/Quinn [] Salvation [x] Completed spiritual assessment [] Other: Impact on Illness or Injury [] Angry [] Fearful [] Anxious [] Often cries [] Exhaustion [] Unable to work [] Unable to attend anglican [] Unable to walk/stand [] Unable to read [] Unable to drive [] Unable to eat/drink [] Unable to sleep [] Unable to be with family [] Patient intubated [] Other: Summary Time spent with patient 5 min
[2023-08-24] MEDS: albuterol 2.5 mg/3 mL Neb INHALATION (10:15)
--- NOTE | 2023-08-24 14:37 | P.PN_ITS ---
Subjective 2 Subjective: seen today hip ct results are pending Vitals/I&O/Wt Last Vital Signs Temp 98.4 F 08/24/23 12:00 Pulse 104 H 08/24/23 12:00 Resp 15 08/24/23 14:12 BP 148/80 08/24/23 12:00 Pulse Ox 93 08/24/23 12:00 O2 Del Method Nasal Cannula 08/24/23 12:00 O2 Flow Rate 2 08/24/23 10:17 08/23/23 08/24/23 08/24/23 22:59 06:59 14:59 Intake Total 1240 / 1600 936.25 / 2536.25 720 / 720 Output Total 900 / 900 850 / 1750 600 / 600 Balance 340 / 700 86.25 / 786.25 120 / 120 Weight last 48 hrs Weight 87.543 kg Weight 84.935 kg Weight 85.548 kg Weight 86.268 kg Weight 83.461 kg Physical Exam 2 Narrative: General: Patient is awake. Appears fatigued but very pleasant. Family bedside. Head: Normocephalic. Atraumatic. Cardiovascular: RRR. No gallops. No murmurs. Blood pressure is elevated. Lungs: Breath sounds slightly diminished bilateral bases, no use of accessory muscles, no crackles or wheezes. On nasal cannula. Skin: No jaundice. No rashes. Abdomen: Normal bowel sounds, abdomen TTP in all 4 quadrants. No guarding. Extremities: No cyanosis or clubbing. Able to wiggle toes in both feet, power, tone could not be examined because of tenderness and pain in the left groin down to the espana Musculoskeletal: No erythematous joints. Neurological: Moves all 4 extremities. No myoclonus. Urinary Catheter Management: Minor: Cath Placed During This Visit: yes Reason for Continuing Indwelling Catheter: Other Urinary Catheter Date of Insertion: 08/22/23 Urinary Catheter Time of Insertion: 21:45 Data 08/24/23 02:26 08/24/23 02:26 A&P Assessment and plan (1) Hyponatremia: Acute on chronic hyponatremia, associated with hypochloremia, hypercalcemia Suspect multifactorial dyspnea combination of dehydration and mild SIADH. Add urine lites to the sample from last night. Check lipid panel, A1c. Blood sugars appreciated. Slightly improving today. Continue with IV hydration. Repeat BMP in afternoon. (2) Acute urinary retention: Unknown cause. Status post Minor catheter placement with marked urinary output Continue Minor catheter for decompression (3) Hilar mass: Seen on CTA done on July 31. Following up with physician at [facility]. Plan for possible biopsy on August 31. CT abdomen pelvis done on admission shows findings consistent with metastatic disease to peritoneum, bilateral adrenal glands and liver with concerns for capsular deposits. Patient willing to have further workup done at [facility] and wants to follow-up with Dr. Montes. Will confirm tomorrow once available with Dr. Montes and radiology for possible biopsy of the liver mass. 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 Physical therapy evaluation requested (6) Subcutaneous emphysema: No wheezing on exam Pulmicort twice daily, DuoNebs every 6 hours. Qualifiers: Encounter type: sequela Qualified Code(s): T79.7XXS - Traumatic subcutaneous emphysema, sequela (7) Hypertension: Goal blood pressure less than 140/90 mmHg. So far blood pressure stable off antihypertensives. Continue to monitor. Qualifiers: Hypertension type: unspecified Qualified Code(s): I10 - Essential (primary) hypertension (8) Constipation: Plan Patient presented to the ER with concerns for urinary retention, not able to have a bowel movement for over a week, CT abdomen pelvis not concerning for significant stool burden, complaining of significant pain going from left groin down to left ankle with tenderness in the espana, pain being spasmodic getting aggravated even on moving the right leg though power could not be assessed because of spasmodic pain. Given concerns for metastatic disease with peritoneal involvement cannot rule out possible cauda equina. Patient does give history of jerky trauma while walking around with her dog. Check ESR, CRP, vitamin B12 and TSH levels For now we will start patient on dexamethasone 10 mg IV 6-hour tail MRI lumbar with and without contrast can be done. Check, D-dimer and if elevated will check lower limb Doppler to rule out DVT. CT hip. Dilaudid 1 mg every 4 hours as needed for pain, continue with Flexeril p.o. 3 times daily as needed Constipation: Unknown cause. Start on aggressive bowel regimen with milk of magnesia and senna and Colace for now. CT abdomen pelvis appreciated. MRI as above. DVT prophylaxis: Lovenox CODE STATUS: Full code Regular diet. Plan for today 08/24/2023 Check bilateral lower extremity Doppler to rule out DVT. D-dimer 9.01 CT hip seems to have a pathological fracture (self interpretation), and report is pending at this time Check full body nuclear bone scan Discussed with Dr. Levi. Consult orthopedic surgery Pulmonology not available manager education today. Patient will need a bronchoscopy for biopsy of hilar lesions. Discussed with radiology over the phone. Liver lesion is not large enough therefore not amenable for biopsy including the adrenal lesion. Once pulmonology available on Thursday will consult for bronchoscopy for primary tissue diagnosis. She will need follow-up with oncology as an outpatient Discussed with patient and her [id number] at bedside. Sodium 126 today, Urine sodium 18 on admission. Probably hypovolemic hyponatremia. Continue normal saline 75 cc/h. Hemoglobin A1c 6.2 Iron 20, percent saturation 9.9 CRP 239.9, vitamin B12 1986 TSH 2.04 I would continue Minor catheter and discharge patient with it for urinary retention. She will need to follow-up with urology as an outpatient. MRI lumbar spine completed. Cauda equina ruled out. I will stop dexamethasone at this time. Constipation: Continue Milk of Magnesia 30 mL at bedtime. Continue docusate senna 1 tablet twice daily. If patient unable to have a bowel movement by a.m. Will consider enema. Today I will add oral lactulose. Full code Lovenox 40 daily for DVT prophylaxis. Attestations 2 Medical Necessity Statement*: Requires continued hospitalization for new finding of pathological fracture of left hip. Patient is still hyponatremic, constipated. Will need to have a nuclear bone scan and thereafter potential surgery for left hip. 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
--- NOTE | 2023-08-24 14:46 | CT_ITS ---
WS: [id number] CT LEFT HIP WITH CONTRAST. HISTORY: hip pain, weakness of left leg Technique: All CT scans at [facility] use at least one of these dose optimization techniques: automated exposure control; mA and/or kV adjustment per patient size (includes targeted exams where dose is matched to clinical indication); or iterative reconstruction. DLP: 677.45 mGy.cm Contrast: Omnipaque 350; 100 mL. COMPARISON: CT 08/22/2023 There is an abnormal appearance of the LEFT hip. There is a pathological fracture through the LEFT fe moral neck and head with mild invagination along the fracture site. There is a mottled appearance of the bone suggesting an underlying neoplasm. Suspect this is a pathological fracture. No significant d isplacement along the fracture line. There is a soft tissue mass surrounding the hip. Combination of soft tissue thickening and lucency. There is adjacent diverticula noted in the sigmoid colon. No adenopathy in the LEFT inguinal region. IMPRESSION: 1. Abnormal CT LEFT hip. 2. Pathological fracture involving the LEFT femoral head and neck. 3. Additional soft tissue surrounding the fracture suggesting pathological fracture.
--- NOTE | 2023-08-24 15:44 | PM.CONSULT ---
Providers/Reason For Consult Consulting Physician/Specialty*: [facility] Montes MD, [facility] Reason for Consult*: hilar lymphadenopathy suspicious for malignancy Requesting Physician: Kayla Ortiz MD Attending Physician: Kayla Ortiz MD Primary Care Provider: Vanessa Alvarado DO History of Present Illness History of Present Illness Chloe Candelario is a 63 year old female with past medical history significant for hypertension, hyperlipidemia, COPD, tobacco use disorder in early remission admitted for severe abdominal pain and distention for about a week. She also has a difficulty walking, difficulty urinating, no bowel movements for a week and unable to walk Labs revealed acute on chronic hyponatremia with hypoosmolality, hypochloremia, hypercalcemia, anion gap with normal bicarb, and anemia. Urinalysis with 2+ ketones. Chest x-ray with negative for acute cardiopulmonary processes. CT abdomen/pelvis revealed findings consistent with metastatic disease to the peritoneum, bilateral adrenal glands and liver. She was found to have urinary retention for which Minor catheter was placed with marked urine output. CT of the lumbar spine showed no metastatic osseous lesions in the lumbar spine and no severe thecal sac compression. Prior to this admission-patient was seen in the emergency room 07/31/2023 for sharp central chest pain radiating to her back. She had CTA 07/31/2023 which showed irregular soft tissue in the right hilar station at least 6.1 x 3.6 cm extending into mediastinum subcarinal station. Concerning for neoplasm. This produces significant mass effect and incomplete occlusion of pulmonary artery. She was referred to pulmonary. Patient reports she has seen target protection specialist in [facility] and a biopsy is scheduled for this 08/26/2022. As all the imaging findings are consistent with metastatic disease-patient able to walk-she requested to have biopsies during this hospitalization. Currently pulmonary consulted to evaluate for possible bronchoscopy and biopsies. Patient seen lying on bed-appears weak Currently on 2 L supplemental oxygen Tells me that she does not have any appetite and has lost about 16 pounds in 4 weeks unintentionally. She denied any hemoptysis, chest pain today, palpitations. Patient tells me that she smokes at least 1 pack/day since age 16-roughly 05-yecm-qxej smoking history Family at bedside and supportive. They report even before this acute illness in the past week the patient has had significant decline in function over the past month or so. She has gotten progressively weaker with difficulty ambulating even prior to her abdominal distention. Review of Systems General: Reports: 10 or more systems reviewed and unremarkable except in HPI and below Medications/Allergies Home Medications Medication Instructions Recorded Confirmed Last Taken Type L.acidophil-L.casei-B.bifid-B.longum-FOS 1 cap PO QAM 10/09/22 08/23/23 08/16/23 08:00 History 2 billion cell-50 mg capsule (Probiotic Blend) cetirizine 10 mg tablet (Zyrtec) 10 mg PO QAM PRN seasonal allergies 10/09/22 08/23/23 07/25/23 History xnsqbnkp-jonx-bzzs 8 mg-folic 400 1 tab PO QAM 10/09/22 08/23/23 08/16/23 08:00 History mcg-K 50 mcg-lutein 300 mcg tablet (Centrum Silver Women) pravastatin 40 mg tablet 40 mg PO QPM 04/25/23 08/23/23 08/21/23 18:00 History tramadol 50 mg tablet 50 mg PO Q6H PRN pain #10 tabs 04/25/23 08/23/23 08/22/23 08:00 Rx acetaminophen 500 mg tablet 1,000 mg PO QPM 07/25/23 08/23/23 08/16/23 History (Acetaminophen Extra Strength) albuterol sulfate 90 mcg/actuation 2 inh inhalation Q6H PRN shortness 07/25/23 08/23/23 Unknown Rx aerosol inhaler of breath or wheezing #8.5 grams cholecalciferol (vitamin D3) 125 125 mcg PO DAILY 07/25/23 08/23/23 08/16/23 08:00 History mcg (5,000 unit) tablet (Vitamin D3) guaifenesin 1,200 mg tablet, 1,200 mg PO BID #14 tabs 07/25/23 08/23/23 08/16/23 08:00 Rx extended release 12 hr ipratropium 0.5 mg-albuterol 3 mg 3 ml inhalation Q6H PRN Shortness 07/25/23 08/23/23 08/22/23 13:00 History (2.5 mg base)/3 mL nebulization Of Breath Or Wheezing soln lisinopril 20 mg tablet 20 mg PO QPM 07/25/23 08/23/23 08/21/23 18:00 History naproxen sodium 220 mg capsule 440 mg PO DAILY 07/25/23 08/23/23 07/25/23 History (Aleve) wztxk-2y-bqt-epa-fish oil 120 1 cap PO DAILY 07/25/23 08/23/23 08/16/23 08:00 History mg-180 mg-60 mg-1,200 mg capsule, DR (Fish Oil) naproxen 500 mg tablet (Naprosyn) 500 mg PO BID PRN pain #20 tabs 08/01/23 08/23/23 08/16/23 Rx Allergies Allergy/AdvReac Type Severity Reaction Status Date / Time oxycodone [From Percocet] Allergy ALGY-Hives Verified 07/25/23 11:52 Current Medications Generic Name Dose Route Start Last Admin Trade Name Freq PRN Reason Stop Dose Admin Albuterol Sulfate 2.5 mg 08/22/23 23:50 08/24/23 10:15 Albuterol 2.5 Mg/3 Ml Neb INHALATION 2.5 mg Q4H.RESPIRATORY PRN Administration WHEEZING Albuterol/Ipratropium 3 ml 08/22/23 23:50 08/23/23 09:53 Ipratropium-Albuterol 3 Ml Neb INHALATION 3 ml Q4H PRN Administration SHORTNESS OF BREATH Atorvastatin Calcium 20 mg 08/23/23 18:00 08/23/23 18:09 Atorvastatin 40 Mg Tablet PO Not Given QPM JAMES Budesonide 0.5 mg 08/23/23 20:00 08/24/23 10:16 Budesonide 0.5 Mg/2 Ml Neb INHALATION Not Given BID.RESPIRATORY JAMES Cyclobenzaprine HCl 5 mg 08/23/23 00:53 08/24/23 15:40 Cyclobenzaprine 10 Mg Tablet PO 5 mg TID PRN Administration MUSCLE SPASMS Enoxaparin Sodium 40 mg 08/23/23 21:00 08/23/23 20:38 Enoxaparin 40 Mg/0.4 Ml Syringe SUBCUT 40 mg BEDTIME JAMES Administration Hydromorphone HCl 1 mg 08/23/23 11:34 08/24/23 14:12 Hydromorphone 4 Mg Tablet PO 1 mg Q4H PRN Administration PAIN Sodium Chloride 1,000 mls @ 75 mls/hr 08/23/23 03:00 08/24/23 06:35 Sodium Chloride 0.9% IV 75 mls/hr .[id number] JAMES Administration Magnesium Hydroxide 30 ml 08/23/23 21:00 08/23/23 20:38 Magnesium Hydroxide 30 Ml Udc PO 30 ml BEDTIME JAMES Administration Morphine Sulfate 1 mg 08/23/23 15:08 08/24/23 15:27 Morphine 4 Mg/Ml Sdv 1 Ml IVP 1 mg Q4H PRN Administration SEVERE PAIN Senna/Docusate Sodium 1 tab 08/23/23 18:00 08/24/23 07:41 Sennosides-Docusate Tablet PO 1 tab BID JAMES Administration PFSH Acute PFSH: Medical History Hypertension Lung mass Cervical spondylosis with myelopathy Rotator cuff impingement syndrome of right shoulder Cervical myelopathy No pertinent family history Surgical History No pertinent past surgical history Social History Smoking and tobacco/nicotine status: former use of tobacco/nicotine Alcohol intake: former Substance/Drug Use: former Vitals/I&O/Wt Last Vital Signs Temp 98.4 F 08/24/23 12:00 Pulse 104 H 08/24/23 12:00 Resp 16 08/24/23 15:27 BP 148/80 08/24/23 12:00 Pulse Ox 93 08/24/23 12:00 O2 Del Method Nasal Cannula 08/24/23 12:00 O2 Flow Rate 2 08/24/23 10:17 08/24/23 08/24/23 08/24/23 06:59 14:59 22:59 Intake Total 936.25 / 2536.25 720 / 720 Output Total 850 / 1750 600 / 600 Balance 86.25 / 786.25 120 / 120 Weight last 48 hrs Weight 193 lb Weight 187 lb 4 oz Weight 188 lb 9.6 oz Weight 190 lb 3 oz Weight 184 lb Physical Exam Narrative: General: alert, NAD, lying in bed on 2 L supplemental oxygen HEENT: conj clear, EOMI, PERRL, mmm, Neck: supple, no meningismus Heme: no cervical LAP Respiratory: Inspection: No visible deformity of the chest wall Palpation: Trachea is mildly deviated to the right, bilateral symmetric expansion Percussion: Bilateral tympanic percussion note both anterior and posteriorly Auscultation: Bilateral clear to auscultation both anterior and posteriorly, no crackles wheezing or rhonchi Cardiovascular: rrr, nl s1s2, no mrg Abdomen: soft, nt, nd, no r/g, bs+ Extremities: pulses +, no edema, no c/c : no CVA tenderness Skin: intact, no rash MSK: no back or neck pain Neurologic: grossly intact Urinary Catheter Management: Minor: Cath Placed During This Visit: yes Reason for Continuing Indwelling Catheter: Other Urinary Catheter Date of Insertion: 08/22/23 Urinary Catheter Time of Insertion: 21:45 Data 08/24/23 02:26 08/24/23 02:26 Other Labs: Radiology Impressions Chest X-Ray 08/22/23 20:38 IMPRESSION: No acute cardiopulmonary process. Abdomen/Pelvis CT 08/22/23 20:39 IMPRESSION: 1. Findings consistent with metastatic disease to the peritoneum, bilateral adrenal glands and liver, in particularly capsular deposits. 2. Post cholecystectomy with no biliary dilatation. 3. Diverticulosis with no changes of diverticulitis. COMMENTS: Consistent with the [place] [employer]'s Incidental Findings Committee white paper (J Am Jade Radiol 2018): Any incidental renal lesion less than 1 cm or classified as too small to characterize, or any incidental cystic renal lesion characterized as simple-appearing, is likely benign. No follow-up imaging is recommended for these lesions per consensus recommendations based on imaging criteria. Lumbar Spine CT 08/22/23 20:39 IMPRESSION: 1. No severe thecal sac compression. 2. No metastatic osseous lesion in the lumbar spine. Lumbar Spine MRI 08/23/23 11:53 IMPRESSION: Mild degenerative changes. Most prominently there is moderate neural foraminal narrowing and left-sided L5-S1 related to broad-based lateral protrusion and underlying osteophyte. No abnormal enhancement. Venous Duplex 08/23/23 14:47 IMPRESSION: No evidence of deep vein thrombosis. Hip X-Ray 08/24/23 06:37 IMPRESSION: 1. Acute fracture of the subcapital femoral neck on the left. Laboratory Results WBC 7.24 10^3/uL (3.29-11.43) 08/24/23 02: RBC 3.58 10^6/uL (3.85-5.65) L 08/24/23 02: Hgb 10.20 g/dL (11.27-16.99) L 08/24/23 02: Hct 30.3 % (36-47) L 08/24/23 02: MCV 84.6 fl (85-98) L 08/24/23 02: MCH 28.5 pg (27-33) 08/24/23 02: MCHC 33.7 g/dL (30-55) 08/24/23 02: RDW 12.3 % (12.1-15.1) 08/24/23: Plt Count 334 10^3/cmm (157-399) 08/24/23 02: MPV 10.0 fL (7.4-10.4) 08/24/23 02: Neut % (Auto) 86.1 % 08/24/23 02: Lymph % (Auto) 7.7 % 08/24/23 02: [place] % (Auto) 5.5 % 08/24/23 02: Eos % (Auto) 0.0 % 08/24/23 02: Baso % (Auto) 0.1 % 08/24/23 02: Neut # (Auto) 6.23 10^3/uL (1.8-7.7) 08/24/23 02: Lymph # (Auto) 0.6 10^3/uL (0.8-4.8) L 08/24/23: [place] # (Auto) 0.4 10^3/uL (0.2-0.9) 08/24/23 02: Eos # (Auto) 0.0 10^3/uL (0.0-0.8) 08/24/23: Baso # (Auto) 0.0 10^3/uL (0.0-0.1) 08/24/23 02: Nucleated RBC % (auto) 0 % 08/24/23 02: Nucleated RBCs # 0.0 /100WBC 08/24/23 02: ESR 64 mm/hr (0-15) H 08/23/23 02:21 D-Dimer 9.01 ug/mLFEU (0-0.59) H 08/23/23 15:06 Sodium 126 mmol/L (136-145) L 08/24/23 02:26 Potassium 4.2 mmol/L (3.5-5.1) 08/24/23 02:26 Chloride 89 mmol/L (98-107) L 08/24/23 02:26 Carbon Dioxide 26 mmol/L (22-29) 08/24/23 02:26 Anion Gap 15.2 (5-19) 08/24/23 02:26 BUN 10 mg/dL (8-23) 08/24/23 02:26 Creatinine 0.4 mg/dL (0.5-0.9) L 08/24/23 02:26 GFR Calculation 162.3 mL/min (90-130) H 08/24/23 02:26 Glucose 134 mg/dL (65-115) H 08/24/23 02:26 Estimat Average Glucose 131 08/24/23 02:26 Hemoglobin A1c 6.2 % (4.0-6.0) H 08/24/23 02:26 Calculated Osmolality 263 mOsm/kg (285-295) L 08/24/23 02:26 Calcium 9.4 mg/dL (8.5-10.5) 08/24/23 02:26 Phosphorus 4.6 mg/dL (2.5-4.5) H 08/24/23 02:26 Magnesium 2.1 mg/dL (1.7-2.3) 08/24/23 02:26 Iron 20 ug/dL (37-145) L 08/23/23 02:21 TIBC 202 mcg/dl 08/23/23 02:21 % Saturation 9.9 % (20-50) L 08/23/23 02:21 Unsat Iron Binding 182 ug/dL (112-347) 08/23/23 02:21 Total Bilirubin 0.3 mg/dL (0.15-1.2) 08/24/23 02:26 AST 20 U/L (0-32) 08/24/23 02:26 ALT 24 U/L (0-33) 08/24/23 02:26 Alkaline Phosphatase 94 U/L (35-105) 08/24/23 02:26 C-Reactive Protein 239.9 mg/L (0.0-4.9) H 08/23/23 02:21 NT-Pro-B Natriuret Pep 85 pg/mL (0-125) 08/23/23 02:21 Total Protein 6.6 g/dL (6.6-8.7) 08/24/23 02: Albumin 3.2 g/dL (3.5-5.2) L 08/24/23 02: Globulin 3.4 g/dL (1.3-4.6) 08/24/23 02:26 Triglycerides 95 mg/dL (0-150) 08/24/23 02: Cholesterol 173 mg/dL (0-200) 08/24/23 02: LDL Cholesterol, Calc 119 mg/dL (50-129) 08/24/23 02: Total VLDL Cholesterol 19 mg/dL (0-30) 08/24/23 02: HDL Cholesterol 35 mg/dL (60-100) L 08/24/23 02: Cholesterol/HDL Ratio 4.94 mg/dL (0.0-4.40) H 08/24/23 02: Lipase 17 U/L (13-60) 08/22/23 20:21 Vitamin B12 1986 pg/mL (232-1245) H 08/23/23 02:21 Folate > 20.0 ng/mL (4.8-37.3) 08/24/23 02: TSH 2.04 uIU/mL (0.27-4.20) 08/23/23 02:21 Urine Color Yellow (Yellow) 08/22/23 21:47 Urine Appearance Sl hazy (CLEAR) A 08/22/23 21:47 Urine pH 5 (5-7) 08/22/23 21:47 Ur Specific [place] 1.015 (1.005-1.030) 08/22/23 21:47 Urine Protein Trace (Negative) 08/22/23 21:47 Urine Glucose (UA) Norm (Normal) 08/22/23 21:47 Urine Ketones 2+ (Negative) H 08/22/23 21:47 Urine Blood Trace (Negative) H 08/22/23 21:47 Urine Nitrate Negative (Negative) 08/22/23 21:47 Urine Bilirubin Neg (Negative) 08/22/23 21:47 Urine Urobilinogen Norm mg/dL (Negative) 08/22/23 21:47 Ur Leukocyte Esterase Negative (Negative) 08/22/23 21:47 Urine RBC 0-4 /hpf (0-2) H 08/22/23 21:47 Urine WBC 0-4 /hpf (0-5) H 08/22/23 21:47 Ur Squamous Epith Cells 0-4 /hpf (0-5) H 08/22/23 21:47 Amorphous Sediment Trace /hpf 08/22/23 21:47 Urine Bacteria Trace /hpf (NONE) 08/22/23 21:47 Ur Random Sodium 18 mmol/L 08/22/23 21:47 Ur Random Potassium 23 mmol/L 08/22/23 21:47 Ur Random Chloride 18 mmol/L 08/22/23 21:47 Ur Random Urea Nitrogn 421 mg/dL 08/22/23 21:47 A&P Assessment and plan (1) Hilar mass: CTA 07/31/2023-right hilar mass and several lymph nodes - suspicious for malignancy in patient with extensive smoking history Even abdominopelvic CT scan during this admission-is suspicious for mets to peritoneum Hospitalist discussed with IR and the reported liver lesion is not amenable for biopsy; hence pulmonary consulted for hilar lymph node biopsies I have discussed with patient and family in detail about endobronchial ultrasound-guided biopsy of right hilar lesions. Discussed reports nature of the procedure, indications, complications, alternatives and patient verbalized understanding and agreed with biopsies Will schedule for biopsies as soon as schedule permits (2) Suspected malignant neoplasm: Given the CT from 07/31/[address] abdomen pelvis findings this admission are all suspicious for metastatic malignancy especially in the setting of significant smoking history and unintentional weight loss She will be scheduled for bronchoscopy guided biopsies/EBUS guided hilar biopsies for tissue diagnosis as soon as schedule permits (3) Smoker: 1 pack/day for 47 years-counseled extensively to quit smoking-she mentioned that she has been smoking since her ER visit 07/31/2023 Consult Attestations Medical Necessity Statement: She is scheduled for biopsies tomorrow Coding Level of Care Code Acute Code for Chg Fwd Diagnoses Hilar mass R91.8 Suspected malignant neoplasm R68.89 Smoker F17.200 Time Spent (min) 53
[2023-08-24] MEDS: lactulose oral liq 20 gm/30 mL UDC PO (17:45)
[2023-08-24] MEDS: magnesium hydroxide 30 mL UDC PO (20:19)
[2023-08-24] MEDS: budesonide 0.5 mg/2 mL Neb INHALATION (20:46)
[2023-08-24] MEDS: fentaNYL 12 mcg Patch 1 PATCH TRANSDERMA (23:23)
[2023-08-25] VITALS (26 sets, daily range): BP systolic 106–156; BP diastolic 61–89; PULSE 88–107; RESP 16–26; TEMP 36.1–37.1; O2SAT 91–100
[2023-08-25] MEDS: HYDROmorphone 1 mg/mL INJ 1 mL 0.5 MG IVP ×5 (02:33→22:53)
[2023-08-25 05:40] LABS: Basophils % 0.2 %; Hematocrit 30.7 % (36-47); Lymphocytes # 1.3 10^3/uL (0.8-4.8); Lymphocytes % 10.8 %; Mean Corpuscular HGB Conc 33.9 g/dL (30-55); Mean Corpuscular Hemoglobin 28.9 pg (27-33); Mean Corpuscular Volume 85.3 fl (85-98); Mean Platelet Volume 9.6 fL (7.4-10.4); Monocytes # 1.5 10^3/uL (0.2-0.9); Monocytes % 12.4 %; Neutrophils # 9.29 10^3/uL (1.8-7.7); Neutrophils % 76.1 %; Nucleated Red Blood Cells % 0 %; Platelet Count 370 10^3/cmm (157-399); Red Cell Distribution Width 12.4 % (12.1-15.1); White Blood Count 12.21 10^3/uL (3.29-11.43)
[2023-08-25 05:56] LABS: Phosphorus 3.9 mg/dL (2.5-4.5)
[2023-08-25 06:03] LABS: Alanine Aminotransferase 31 U/L (0-33); Albumin Level 3.2 g/dL (3.5-5.2); Alkaline Phosphatase 91 U/L (35-105); Anion Gap 14.2 (5-19); Aspartate Amino Transferase 27 U/L (0-32); Blood Urea Nitrogen 13 mg/dL (8-23); Calcium 8.9 mg/dL (8.5-10.5); Carbon Dioxide 28 mmol/L (22-29); Chloride 91 mmol/L (98-107); Creatinine Clr Calc Pharmacy 163.6082; Globulin 2.6 g/dL (1.3-4.6); Glomerular Filtration Rate 162.3 mL/min (90-130); Glucose 98 mg/dL (65-115); Magnesium 2.3 mg/dL (1.7-2.3); Osmolality Calculated 268 mOsm/kg (285-295); Potassium 4.2 mmol/L (3.5-5.1); Sodium 129 mmol/L (136-145); Total Bilirubin 0.2 mg/dL (0.15-1.2); Total Protein 5.8 g/dL (6.6-8.7)
[2023-08-25] MEDS: budesonide 0.5 mg/2 mL Neb INHALATION (07:56)
--- NOTE | 2023-08-25 08:00 | NM_ITS ---
WS: [id number] NUCLEAR MEDICINE BONE SCAN Radiopharmaceutical: 27.3 Tc-99m MDP mCi IV Injection site: Antecubital Postinjection imaging delay: 1 hr CLINICAL INFORMATION: metastatic disease? COMPARISON: None. FINDINGS: Bone lesions: Punctate areas of osseous metastatic disease involving the calvarium, bilateral hips, m id and distal femurs bilaterally, distal femoral condyles, RIGHT mid tibial shaft, LEFT proximal loreto adali, and a few small punctate foci within the RIGHT upper lateral and LEFT posterior ribs. Additional foci of uptake involving the iliac wings and pubic rami bilaterally. Additional suspected lesion in the mid sternum. Soft tissue contours: Normal. Kidneys: Normal. Other findings: None. IMPRESSION: Osseous metastatic disease described above
--- NOTE | 2023-08-25 09:20 | P.ANESASSM_ITS ---
Pre-Anesthetic Assessment Height/Weight: Height 1.65 m Weight 89.925 kg Temp Pulse Resp BP Pulse Ox O2 Del Method O2 Flow Rate 98.4 F 93 16 133/82 95 Nasal Cannula 2 08/25/23 07:47 08/25/23 08:01 08/25/23 07:57 08/25/23 07:47 08/25/23 07:57 08/25/23 07:57 08/25/23 08:00 Preop Diagnosis: Lung mass Operation Date: 08/25/23 10:00 Proposed Procedures p Ebus(Not Applicable) - Zackery Schafer DatarMD Familial anesthetic complications: PONV Was Beta Joshua taken within 24 hours: N/A Last intake: Intake Last Liquid Date 08/24/23 Last Liquid Time 23:55 Last Solid Date 08/24/23 @ 1900 Social Tobacco (quit 07/31/23 upon diagnosis) 3-4 cigerettes per day pack(s) per day Exam alert, oriented x 3 and regular rate & rhythm Airway Submandibular: within normal limits Cervical ROM: within normal limits Mallampati: Class II Dentition: false (upper) and partials (lower) Pulmonary Chronic Obstructive Pulmonary Disease and Shortness of Breath 2L nasal cannula at night prior to hospitalization. 2L continuous since last per patient. Metastatic lung disease CV/HEM Hypertension and Myocardial Infarction urinary retention Hepatic liver mass GI Gastroesophageal Reflux Disease constipation Metabolic Hyperlipidemia hyponatremia Musc/skel left hip pathological fracture due to metastatic disease. Neuropsych Anxiety and Depression Anesthetic Plan ASA status: 4 Anesthesia: General Other: denies reflux or nausea, improved constipation per patient. Medications/Allergies Home Medications Medication Instructions Recorded Confirmed Last Taken Type L.acidophil-L.casei-B.bifid-B.longum-FOS 1 cap PO QAM 10/09/22 08/23/23 08/16/23 08:00 History 2 billion cell-50 mg capsule (Probiotic Blend) cetirizine 10 mg tablet (Zyrtec) 10 mg PO QAM PRN seasonal allergies 10/09/22 08/23/23 07/25/23 History ofsbyeoo-hsae-gapd 8 mg-folic 400 1 tab PO QAM 10/09/22 08/23/23 08/16/23 08:00 History mcg-K 50 mcg-lutein 300 mcg tablet (Centrum Silver Women) pravastatin 40 mg tablet 40 mg PO QPM 04/25/23 08/23/23 08/21/23 18:00 History tramadol 50 mg tablet 50 mg PO Q6H PRN pain #10 tabs 04/25/23 08/23/23 08/22/23 08:00 Rx acetaminophen 500 mg tablet 1,000 mg PO QPM 07/25/23 08/23/23 08/16/23 History (Acetaminophen Extra Strength) albuterol sulfate 90 mcg/actuation 2 inh inhalation Q6H PRN shortness 07/25/23 08/23/23 Unknown Rx aerosol inhaler of breath or wheezing #8.5 grams cholecalciferol (vitamin D3) 125 125 mcg PO DAILY 07/25/23 08/23/23 08/16/23 08:00 History mcg (5,000 unit) tablet (Vitamin D3) guaifenesin 1,200 mg tablet, 1,200 mg PO BID #14 tabs 07/25/23 08/23/23 08/16/23 08:00 Rx extended release 12 hr ipratropium 0.5 mg-albuterol 3 mg 3 ml inhalation Q6H PRN Shortness 07/25/23 08/23/23 08/22/23 13:00 History (2.5 mg base)/3 mL nebulization Of Breath Or Wheezing soln lisinopril 20 mg tablet 20 mg PO QPM 07/25/23 08/23/23 08/21/23 18:00 History naproxen sodium 220 mg capsule 440 mg PO DAILY 07/25/23 08/23/23 07/25/23 History (Aleve) uswra-6c-iew-epa-fish oil 120 1 cap PO DAILY 07/25/23 08/23/23 08/16/23 08:00 History mg-180 mg-60 mg-1,200 mg capsule, DR (Fish Oil) naproxen 500 mg tablet (Naprosyn) 500 mg PO BID PRN pain #20 tabs 08/01/23 08/23/23 08/16/23 Rx Allergies Allergy/AdvReac Type Severity Reaction Status Date / Time oxycodone [From Percocet] Allergy ALGY-Hives Verified 07/25/23 11:52 Current Medications Generic Name Dose Route Start Last Admin Trade Name Freq PRN Reason Stop Dose Admin Albuterol Sulfate 2.5 mg 08/22/23 23:50 08/24/23 10:15 Albuterol 2.5 Mg/3 Ml Neb INHALATION 2.5 mg Q4H.RESPIRATORY PRN Administration WHEEZING Albuterol/Ipratropium 3 ml 08/22/23 23:50 08/23/23 09:53 Ipratropium-Albuterol 3 Ml Neb INHALATION 3 ml Q4H PRN Administration SHORTNESS OF BREATH Budesonide 0.5 mg 08/23/23 20:00 08/25/23 07:56 Budesonide 0.5 Mg/2 Ml Neb INHALATION 0.5 mg BID.RESPIRATORY JAMES Administration Cyclobenzaprine HCl 5 mg 08/23/23 00:53 08/24/23 23:30 Cyclobenzaprine 10 Mg Tablet PO 5 mg TID PRN Administration MUSCLE SPASMS Enoxaparin Sodium 40 mg 08/23/23 21:00 08/23/23 20:38 Enoxaparin 40 Mg/0.4 Ml Syringe SUBCUT 40 mg BEDTIME JAMES Administration Fentanyl 1 patch 08/24/23 23:00 08/24/23 23:23 Fentanyl 12 Mcg Patch TRANSDERMA 1 patch Q72H JAMES Administration Hydromorphone HCl 0.5 mg 08/24/23 23:01 08/25/23 06:44 Hydromorphone 1 Mg/Ml Inj 1 Ml IVP 0.5 mg Q4H PRN Administration SEVERE PAIN Sodium Chloride 1,000 mls @ 75 mls/hr 08/23/23 03:00 08/25/23 09:03 Sodium Chloride 0.9% IV 0 mls/hr .[id number] JAMES Infusion Magnesium Hydroxide 30 ml 08/23/23 21:00 08/24/23 20:19 Magnesium Hydroxide 30 Ml Udc PO 30 ml BEDTIME JAMES Administration Morphine Sulfate 1 mg 08/23/23 15:08 08/24/23 19:42 Morphine 4 Mg/Ml Sdv 1 Ml IVP 1 mg Q4H PRN Administration SEVERE PAIN Senna/Docusate Sodium 1 tab 08/23/23 18:00 08/25/23 08:16 Sennosides-Docusate Tablet PO Not Given BID JAMES PFSH Anesthesia Medical History Hypertension Lung mass Cervical spondylosis with myelopathy Rotator cuff impingement syndrome of right shoulder Cervical myelopathy No pertinent family history Surgical History No pertinent past surgical history Social History Smoking and tobacco/nicotine status: former use of tobacco/nicotine Alcohol intake: former Substance/Drug Use: former Data Anesthesia 08/25/23 05:19 08/25/23 05:19 Short CBC 08/24/23 08/25/23 Range/Units 02:26 05:19 WBC 7.24 12.21 H (3.29-11.43) 10^3/uL Hgb 10.20 L 10.40 L (11.27-16.99) g/dL Hct 30.3 L 30.7 L (36-47) % MCV 84.6 L 85.3 (85-98) fl Plt Count 334 370 (157-399) 10^3/cmm Neut % (Auto) 86.1 76.1 % Neut # (Auto) 6.23 9.29 H (1.8-7.7) 10^3/uL BMP 08/23/23 08/24/23 08/25/23 15:06 02:26 05:19 Sodium 126 L 126 L 129 L Potassium 4.8 4.2 4.2 Chloride 86 L 89 L 91 L Carbon Dioxide 24 26 28 BUN 10 10 13 Creatinine 0.5 0.4 L 0.4 L Glucose 126 H 134 H 98 Calcium 9.8 9.4 8.9 Cardiac Enzymes 08/23/23 Range/Units 02:21 NT-Pro-B Natriuret Pep 85 (0-125) pg/mL Liver Function 08/24/23 08/25/23 Range/Units 02:26 05:19 Total Bilirubin 0.3 0.2 (0.15-1.2) mg/dL AST 20 27 (0-32) U/L ALT 24 31 (0-33) U/L Alkaline Phosphatase 94 91 (35-105) U/L Albumin 3.2 L 3.2 L (3.5-5.2) g/dL Coags 08/23/23 08/23/23 02:21 15:06 ESR 64 H D-Dimer 9.01 H C-Reactive Protein 239.9 H Cardiac Studies: 2 No Data to Display
[2023-08-25] MEDS: lidocaine 1% INJ 10 mL (per mL) XX (10:35)
[2023-08-25 11:26] LABS: Apprearance, Bronch Wash Cloudy (CLEAR); Color, Bronc Wash Slight Pink; PATH Referral Yes
[2023-08-25] MEDS: EPINEPHrine 1 mg/mL INJ XX (11:40)
--- NOTE | 2023-08-25 12:52 | PM.PN ---
Subjective Subjective: seen today after bronchoscopy bone scan done but result pending at this time. Vitals/I&O/Wt Last Vital Signs Temp 97.0 F L 08/25/23 12:30 Pulse 104 H 08/25/23 12:45 Resp 20 H 08/25/23 12:45 BP 118/66 08/25/23 12:45 Pulse Ox 92 08/25/23 12:45 O2 Del Method Nasal Cannula 08/25/23 12:45 O2 Flow Rate 4 08/25/23 12:45 08/24/23 08/25/23 08/25/23 22:59 06:59 14:59 Intake Total 1360 / 2080 955 / 955 Output Total 200 / 800 1300 / 2100 Balance 1160 / 1280 -1300 / -20 954 / 954 Weight last 48 hrs Weight 89.925 kg Weight 87.543 kg Physical Exam Narrative: General: NAD Head: Normocephalic. Atraumatic. Cardiovascular: RRR. No gallops. No murmurs. Lungs: Breath sounds slightly diminished bilateral bases, no use of accessory muscles, no crackles or wheezes. On nasal cannula. Skin: No jaundice. No rashes. Abdomen: Normal bowel sounds, abdomen TTP in all 4 quadrants. No guarding. Extremities: No cyanosis or clubbing. Able to wiggle toes in both feet, power, tone could not be examined because of tenderness and pain in the left groin down to the espana Musculoskeletal: No erythematous joints. Neurological: Moves all 4 extremities. No myoclonus. Urinary Catheter Management: Pinon: Cath Placed During This Visit: yes Reason for Continuing Indwelling Catheter: Acute Urinary Retention or Obstruction Urinary Catheter Date of Insertion: 08/22/23 Urinary Catheter Time of Insertion: 21:45 Data 08/25/23 05:19 08/25/23 05:19 A&P Assessment and plan (1) Hyponatremia: Acute on chronic hyponatremia, associated with hypochloremia, hypercalcemia Suspect multifactorial dyspnea combination of dehydration and mild SIADH. Add urine lites to the sample from last night. Check lipid panel, A1c. Blood sugars appreciated. Slightly improving today. Continue with IV hydration. Repeat BMP in afternoon. (2) Acute urinary retention: Unknown cause. Status post Pinon catheter placement with marked urinary output Continue Pinon catheter for decompression (3) Hilar mass: Seen on CTA done on July 31. Following up with physician at [facility]. Plan for possible biopsy on August 31. CT abdomen pelvis done on admission shows findings consistent with metastatic disease to peritoneum, bilateral adrenal glands and liver with concerns for capsular deposits. Underwent bronchoscopy today. 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 Physical therapy evaluation requested (6) Subcutaneous emphysema: No wheezing on exam Pulmicort twice daily, DuoNebs every 6 hours. Qualifiers: Encounter type: sequela Qualified Code(s): T79.7XXS - Traumatic subcutaneous emphysema, sequela (7) Hypertension: Goal blood pressure less than 140/90 mmHg. So far blood pressure stable off antihypertensives. Continue to monitor. Qualifiers: Hypertension type: unspecified Qualified Code(s): I10 - Essential (primary) hypertension (8) Constipation: (9) Metastatic disease: (10) Malignancy: (11) Lung mass: (12) Back pain: Qualifiers: Back pain location: low back pain Chronicity: acute Back pain laterality: left Sciatica presence: without sciatica Qualified Code(s): M54.50 - Low back pain, unspecified (13) Smoker: (14) Suspected malignant neoplasm: Plan Patient presented to the ER with concerns for urinary retention, not able to have a bowel movement for over a week, CT abdomen pelvis not concerning for significant stool burden, complaining of significant pain going from left groin down to left ankle with tenderness in the espana, pain being spasmodic getting aggravated even on moving the right leg though power could not be assessed because of spasmodic pain. Given concerns for metastatic disease with peritoneal involvement cannot rule out possible cauda equina. Patient does give history of jerky trauma while walking around with her dog. Check ESR, CRP, vitamin B12 and TSH levels For now we will start patient on dexamethasone 10 mg IV 6-hour tail MRI lumbar with and without contrast can be done. Check, D-dimer and if elevated will check lower limb Doppler to rule out DVT. CT hip. Dilaudid 1 mg every 4 hours as needed for pain, continue with Flexeril p.o. 3 times daily as needed Constipation: Unknown cause. Start on aggressive bowel regimen with milk of magnesia and senna and Colace for now. CT abdomen pelvis appreciated. MRI as above. DVT prophylaxis: Lovenox CODE STATUS: Full code Regular diet. Plan for today 08/25/2023 Check bilateral lower extremity Doppler to rule out DVT. D-dimer 9.01 CT hip seems to have a pathological fracture (self interpretation), and report is pending at this time Full body bone scan shows metatstic disease, primary unknown. Discussed with Dr. Levi. Consult orthopedic surgery for input. Pulm consulted. Bronch done today. Path report pending. Discussed with radiology over the phone. Liver lesion is not large enough therefore not amenable for biopsy including the adrenal lesion. Discussed with patient and her [id number] at bedside. Sodium 129 today, Urine sodium 18 on admission. Probably hypovolemic hyponatremia. Continue normal saline 75 cc/h. Hemoglobin A1c 6.2 Iron 20, percent saturation 9.9 CRP 239.9, vitamin B12 1986 TSH 2.04 I would continue Pinon catheter and discharge patient with it for urinary retention. She will need to follow-up with urology as an outpatient. MRI lumbar spine completed. Cauda equina ruled out. I will stop dexamethasone at this time. Constipation: Continue Milk of Magnesia 30 mL at bedtime. Continue docusate senna 1 tablet twice daily. If patient unable to have a bowel movement by a.m. Will consider enema. Today I will add oral lactulose. [facility] completed today, samples sent. Path report pending Has evidence of metastatic disease, primary unknown. Will update patient and family. She will need oncology f/u as outpatient. Full code Lovenox 40 daily for DVT prophylaxis. Attestations Medical Necessity Statement*: Requires continued hospitalization for new finding of pathological fracture of left hip. 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
--- NOTE | 2023-08-25 12:53 | P.OP_ITS ---
Operative Report Date of procedure: August 25, 2023 Pre-op diagnosis: Suspected malignancy Post-op diagnosis: Same Surgeon: Zackery Montes MD Brief History: Chloe Candelario is a 63 year old female with past medical history significant for hypertension, hyperlipidemia, COPD, tobacco use disorder seen in the emergency room 07/31/2023 for sharp central chest pain radiating to her back. She had CTA 07/31/2023 which showed irregular soft tissue in the right hilar station at least 6.1 x 3.6 cm extending into mediastinum subcarinal station. Concerning for neoplasm. She had abdominal pain and CT abdomen pelvis suggestive of possible metastatic disease to liver and peritoneum Given her extensive smoking history-I have recommended her for bronchoscopic evaluation as well as endobronchial ultrasound-guided biopsies of hilar/mediastinal lymph nodes. She verbalized understanding and agreed for the procedure. Procedure: -Dx Bronchoscope w/BAL -Bronchoscopy w/ therapeutic aspiration of the tracheobronchial tree (clearance of airway secretions, removal of mucus plugs) -EBUS Sampling 3 of more nodes Indication: CT evidence of soft tissue density extending in right perihilar region, prominent subcarinal lymph node-suspicious for malignancy in patient with chronic smoking history Anesthesia: General anesthesia. Local anesthesia: The sal in the right and left mainstem bronchi were anesthetized with 1% lidocaine, 3 mL. Description of the procedure: The procedure was explained to the patient and the consent was obtained. The patient was brought to the OR. The patient underwent induction for general anesthesia and laryngeal mask airway (LMA) was placed. The bronchoscope was advanced through the LMA. The mobile vocal cords was visualized. After instillation of 1 mL 1% lidocaine local anesthesia- bronchoscope advanced into the trachea. Tracheal mucosa appeared normal, no endotracheal lesion was seen. There were some thick mucoid secretions which were suctioned right away. The sal was sharp. 1 mL each of 1% lidocaine was instilled at the level of sal, and into the the right and left mainstem bronchi for local anesthesia. In a systematic manner bilateral bronchial tree was then examined. The bronchoscope was then introduced into the right mainstem bronchus. Right upper lobe, middle lobe, lower lobe subsegments were inspected up to third subsegmental level. The right upper lobe opening is narrowed due to extrinsic compression. I was able to pass bronchoscope through the upper lobe opening and could visualize segmental openings. Bronchoscope was retracted into right b ronchus intermedius and then advanced to inspect right middle lobe, right lower lobe and superior segment of right lower lobe segments. Mucosa appeared normal with no evidence of any endobronchial lesions. There were thick mucus secretions which were suctioned right away. The bronchoscope was advanced into the left mainstem bronchus. The left upper lobe, lingula, lower lobe were examined up to the third subsegmental level and no abnormalities were identified. Mucosa of left upper lobe, lingula, lower lobe appeared normal with no endobronchial lesion. There were thick mucus secretions which were suctioned right away. Bronchoscope was wedged into right upper lobe and obtained a bronchioloalveolar lavage. Bronchoscope was retracted and Endobronchial Ultrasound (EBUS) was introduced. Identified a abnormal hypoechoic areas in station 11 L, station 4L, station 7 and station 11 R. Using [id number] were taken from these stations; there was some evidence of bleeding which is controlled with instillation of cold saline and diluted epinephrine. After making sure there is no active bleeding, bronchoscope retracted and procedure terminated. Samples: 1. Bronchoalveolar lavage was performed after wedging the bronchoscope at the entrance of the anterior segment of right upper lobe. 30 mL of saline was instilled, fluid return was 15 mL. Bronchoalveolar lavage specimen was sent for cell count and differential, gram stain and culture, cytology B. EBUS guided Fine-needle aspiration biopsies were taken from station station 11 L, station 4L, station 7, station 11 R in that order of sequence 1. Total of 3 passes were made using needle aspiration from station 11 L; all the material was placed in formalin and sent for histopathology 2. Total of 4 passes were made using needle aspiration from station 4L; all the material was placed in formalin and sent for histopathology 3. Total of 6 passes were made using needle aspiration from station 7; material from 4 passes placed in formalin and sent for histopathology; material from 2 passes placed in RPMI to rule out lymphoma 4. Total of 3 passes were made using needle aspiration from station 11 R; all the material was placed in formalin and sent for histopathology Complications: None. Disposition: Patient is transferred back to floor and can be discharged from pulmonary standpoint. Pt and family are aware that I am going to call them to update final biopsy results once available. Related Problem List Diagnoses (1) Hilar mass: (2) Smoker: (3) Lung mass: (4) Suspected malignant neoplasm:
--- NOTE | 2023-08-25 13:17 | PC.NURSE ---
This nurse assumed care of pt from GI lab at [id number]
[2023-08-25 14:16] LABS: Total Cells Counted Bronch 200
[2023-08-25 14:21] LABS: Cyto Order Verification Order Verified
[2023-08-25] MEDS: cyclobenzaprine 10 mg Tablet 5 MG PO ×2 (14:48→22:55)
--- NOTE | 2023-08-25 15:45 | ANE.PACU2 ---
Inpatient post-anesthesia follow up: Airway intact: Yes Vital signs: Temperature 97.0 F Pulse Rate 101 Respiratory Rate 16 Blood Pressure 135/80 Pulse Oximetry 96 Oxygen Delivery Me thod Nasal Cannula Oxygen Flow Rate 4 Fraction of Inspir ed Oxygen Hydration adequate: Yes Nausea and vomiting: No Pain level: 2 Mental status: Baseline
[2023-08-25] MEDS: morphine 4 mg/mL SDV 1 mL 1 MG IVP (17:24)
[2023-08-25] MEDS: magnesium hydroxide 30 mL UDC PO (21:29)
[2023-08-25] MEDS: enoxaparin 40 mg/0.4 mL Syringe SUBCUT (21:29)
[2023-08-26] VITALS (22 sets, daily range): BP systolic 121–152; BP diastolic 70–82; PULSE 91–106; RESP 14–18; TEMP 36.7–37.4; O2SAT 94–97
[2023-08-26] MEDS: morphine 4 mg/mL SDV 1 mL 1 MG IVP ×4 (02:10→14:15)
[2023-08-26] MEDS: sodium chloride 0.9% 1,000 ML 75 ML IV ×2 (02:38→14:36)
[2023-08-26] MEDS: HYDROmorphone 1 mg/mL INJ 1 mL 0.5 MG IVP ×3 (03:21→12:20)
[2023-08-26 06:35] LABS: Phosphorus 3.4 mg/dL (2.5-4.5)
[2023-08-26] MEDS: budesonide 0.5 mg/2 mL Neb INHALATION (07:34)
[2023-08-26] MEDS: albuterol 2.5 mg/3 mL Neb INHALATION ×2 (07:34→15:47)
[2023-08-26] MEDS: cyclobenzaprine 10 mg Tablet 5 MG PO ×2 (07:57→14:34)
[2023-08-26] MEDS: fentaNYL 25 mcg Patch 1 PATCH TRANSDERMA (11:30)
--- NOTE | 2023-08-26 12:41 | P.PN_ITS ---
Subjective 2 Subjective: pain control inadequate have requested prelim path report. dr. kern has talked to pathology now having diarrhea Vitals/I&O/Wt Last Vital Signs Temp 98.3 F 08/26/23 11:41 Pulse 102 H 08/26/23 11:41 Resp 18 08/26/23 11:41 BP 136/77 08/26/23 11:41 Pulse Ox 96 08/26/23 11:41 O2 Del Method Nasal Cannula 08/26/23 11:41 O2 Flow Rate 2 08/26/23 08:00 08/25/23 08/26/23 08/26/23 22:59 06:59 14:59 Intake Total 50 / 1005 170 / 170 Output Total 1300 / 1301 300 / 1601 Balance -1250 / -296 -300 / -596 170 / 170 Weight last 48 hrs Weight 87.798 kg Weight 89.925 kg Physical Exam 2 Narrative: General: NAD Cardiovascular: RRR. No gallops. No murmurs. Lungs: Breath sounds slightly diminished bilateral bases, no use of accessory muscles, no crackles or wheezes. On nasal cannula. Skin: No jaundice. No rashes. Abdomen: Normal bowel sounds, abdomen TTP in all 4 quadrants. No guarding. Extremities: No cyanosis or clubbing. Able to wiggle toes in both feet, power, tone could not be examined because of tenderness and pain in the left groin down to the espana Musculoskeletal: No erythematous joints. Neurological: Moves all 4 extremities. No myoclonus. Urinary Catheter Management: Pinon: Cath Placed During This Visit: yes Reason for Continuing Indwelling Catheter: Acute Urinary Retention or Obstruction Urinary Catheter Date of Insertion: 08/22/23 Urinary Catheter Time of Insertion: 21:45 Data 08/25/23 05:19 08/25/23 05:19 Micro: Microbiology 08/25/23 10:37 Gram Stain - Final Lung Right Upper Lobe Bronchoalveolar Lavage Culture - Preliminary A&P Assessment and plan (1) Hyponatremia: Acute on chronic hyponatremia, associated with hypochloremia, hypercalcemia Suspect multifactorial dyspnea combination of dehydration and mild SIADH. Add urine lites to the sample from last night. Check lipid panel, A1c. Blood sugars appreciated. Slightly improving today. Continue with IV hydration. Repeat BMP in afternoon. (2) Acute urinary retention: Unknown cause. Status post Pinon catheter placement with marked urinary output Continue Pinon catheter for decompression (3) Hilar mass: Seen on CTA done on July 31. Following up with physician at [facility]. Plan for possible biopsy on August 31. CT abdomen pelvis done on admission shows findings consistent with metastatic disease to peritoneum, bilateral adrenal glands and liver with concerns for capsular deposits. Underwent bronchoscopy today. 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 Physical therapy evaluation requested (6) Subcutaneous emphysema: No wheezing on exam Pulmicort twice daily, DuoNebs every 6 hours. Qualifiers: Encounter type: sequela Qualified Code(s): T79.7XXS - Traumatic subcutaneous emphysema, sequela (7) Hypertension: Goal blood pressure less than 140/90 mmHg. So far blood pressure stable off antihypertensives. Continue to monitor. Qualifiers: Hypertension type: unspecified Qualified Code(s): I10 - Essential (primary) hypertension (8) Constipation: (9) Metastatic disease: (10) Malignancy: (11) Lung mass: (12) Back pain: Qualifiers: Back pain location: low back pain Chronicity: acute Back pain laterality: left Sciatica presence: without sciatica Qualified Code(s): M54.50 - Low back pain, unspecified (13) Smoker: (14) Suspected malignant neoplasm: Plan Patient presented to the ER with concerns for urinary retention, not able to have a bowel movement for over a week, CT abdomen pelvis not concerning for significant stool burden, complaining of significant pain going from left groin down to left ankle with tenderness in the espana, pain being spasmodic getting aggravated even on moving the right leg though power could not be assessed because of spasmodic pain. Given concerns for metastatic disease with peritoneal involvement cannot rule out possible cauda equina. Patient does give history of jerky trauma while walking around with her dog. Check ESR, CRP, vitamin B12 and TSH levels For now we will start patient on dexamethasone 10 mg IV 6-hour tail MRI lumbar with and without contrast can be done. Check, D-dimer and if elevated will check lower limb Doppler to rule out DVT. CT hip. Dilaudid 1 mg every 4 hours as needed for pain, continue with Flexeril p.o. 3 times daily as needed Constipation: Unknown cause. Start on aggressive bowel regimen with milk of magnesia and senna and Colace for now. CT abdomen pelvis appreciated. MRI as above. DVT prophylaxis: Lovenox CODE STATUS: Full code Regular diet. Plan for today 08/26/2023 Check bilateral lower extremity Doppler to rule out DVT. D-dimer 9.01 CT hip shows b/l hip fractures. Full body bone scan shows metatstic disease, primary unknown. Discussed with Dr. Levi. Patient will need orthopedic oncology for further treatment of fractures. She will need specialized equipment which our hospital does not currently carry. Pulm consulted. Bronch done today. Path report pending. Gave patient a lab holiday today. Hemoglobin A1c 6.2 Iron 20, percent saturation 9.9 CRP 239.9, vitamin B12 1986 TSH 2.04 Continue Pnion catheter at this time for urinary retention. MRI lumbar spine completed. Cauda equina ruled out. I will stop dexamethasone at this time. Constipation: Stop milk of magnesia. Continue docusate senna 1 tablet twice daily. [facility] completed today, samples sent. Path report pending Has evidence of metastatic disease, primary unknown. Will update patient and family. She will need oncology f/u as outpatient. Discussed with Dr. Kern. We will attempt to get a prelim path report. If this is small cell lung cancer she may have to start inpatient chemotherapy. Further management to be dictated once path report is available. Until then we will manage pain control at this time. -Increase fentanyl patch to 25 every 72 hours. Continue morphine IV push every 4 hours as needed. Full code Lovenox 40 daily for DVT prophylaxis. Attestations 2 Medical Necessity Statement*: Awaiting pathology report to dictate further management. Needs to stay in hospital for pain control due to bilateral hip fractures that are unrepaired at this time. 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
[2023-08-26 13:02] LABS: Lymphoma Profile (BBPL) See Report
[2023-08-26] MEDS: HYDROmorphone 1 mg/mL INJ 1 mL IVP (17:15)
[2023-08-26] MEDS: LORazepam 2 mg/mL INJ 10 mL MDV 0.5 MG IVP (17:15)
[2023-08-26] MEDS: PRAVASTATIN 40 MG 1 EACH PO (17:20)
--- NOTE | 2023-08-26 18:43 | CT_ITS ---
WS: [id number] CT HEAD NONCONTRAST HISTORY: brain mets? TECHNIQUE: Contiguous axial imaging performed through the brain in 2.5 mm imaging. Bone and soft tiss ue windows. Sagittal and coronal reformats reviewed. All CT scans at [facility] use at least one of these dose optimization techniques: automated exposure control; mA and/or kV adjustment per pa tient size (includes targeted exams where dose is matched to clinical indication); or iterative recon struction. DLP: 1097.78 mGy.cm COMPARISON: None available. No acute intracranial hemorrhage, midline shift or mass effect. Very mild atrophy and small vessel ischemic disease. No sulcal effacement or mass effect. Ventricles: Normal size with no hydrocephalus. No inferior displacement of the cerebellar tonsils. Paranasal sinuses: As visualized are clear. Mastoid air cells: Well pneumatized. 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 Permeative lytic lesions are noted within the LEFT parietal bone. IMPRESSION: 1. No acute intracranial hemorrhage or edema. 2. No mass effect. Cannot exclude metastatic disease on a noncontrast CT. MRI brain would be much mo re sensitive and specific for brain metastasis. 3. No LEFT parietal bone calvarial metastasis.
[2023-08-26] MEDS: morphine 4 mg/mL SDV 1 mL 2 MG IVP (19:08)
[2023-08-27] VITALS (22 sets, daily range): BP systolic 133–154; BP diastolic 78–89; PULSE 75–107; RESP 14–20; TEMP 36.7–38.3; O2SAT 89–96
[2023-08-27] MEDS: sodium chloride 0.9% 1,000 ML 75 ML IV (03:17)
[2023-08-27 04:58] LABS: Basophils % 0.3 %; Eosinophils # 0.1 10^3/uL (0.0-0.8); Eosinophils % 0.7 %; Hematocrit 29.4 % (36-47); Lymphocytes # 1.4 10^3/uL (0.8-4.8); Lymphocytes % 14.2 %; Mean Corpuscular HGB Conc 32.3 g/dL (30-55); Mean Corpuscular Hemoglobin 28.2 pg (27-33); Mean Corpuscular Volume 87.2 fl (85-98); Mean Platelet Volume 9.7 fL (7.4-10.4); Monocytes # 1.3 10^3/uL (0.2-0.9); Neutrophils # 6.83 10^3/uL (1.8-7.7); Neutrophils % 70.8 %; Nucleated Red Blood Cells % 0 %; Platelet Count 315 10^3/cmm (157-399); Red Blood Count 3.37 10^6/uL (3.85-5.65); Red Cell Distribution Width 12.8 % (12.1-15.1); White Blood Count 9.65 10^3/uL (3.29-11.43)
[2023-08-27 05:23] LABS: Alanine Aminotransferase 21 U/L (0-33); Albumin Level 2.8 g/dL (3.5-5.2); Alkaline Phosphatase 79 U/L (35-105); Anion Gap 15.9 (5-19); Aspartate Amino Transferase 16 U/L (0-32); Blood Urea Nitrogen 11 mg/dL (8-23); Calcium 8.4 mg/dL (8.5-10.5); Carbon Dioxide 25 mmol/L (22-29); Chloride 90 mmol/L (98-107); Globulin 2.8 g/dL (1.3-4.6); Glomerular Filtration Rate 162.3 mL/min (90-130); Glucose 87 mg/dL (65-115); Osmolality Calculated 263 mOsm/kg (285-295); Potassium 3.9 mmol/L (3.5-5.1); Sodium 127 mmol/L (136-145); Total Bilirubin 0.3 mg/dL (0.15-1.2); Total Protein 5.6 g/dL (6.6-8.7)
[2023-08-27] MEDS: HYDROmorphone 1 mg/mL INJ 1 mL IVP ×3 (05:37→14:33)
[2023-08-27] MEDS: albuterol 2.5 mg/3 mL Neb INHALATION ×4 (05:51→20:32)
[2023-08-27 07:32] LABS: Estmated Average Glucose 108; Hemoglobin A1C 5.4 % (4.0-6.0)
[2023-08-27] MEDS: budesonide 0.5 mg/2 mL Neb INHALATION ×2 (08:15→20:32)
[2023-08-27] MEDS: cyclobenzaprine 10 mg Tablet 5 MG PO ×2 (10:02→20:25)
[2023-08-27] MEDS: sennosides-docusate Tablet 1 TAB PO ×2 (10:03→17:57)
[2023-08-27] MEDS: morphine 4 mg/mL SDV 1 mL 2 MG IVP (11:12)
--- NOTE | 2023-08-27 11:32 | P.PN_ITS ---
Subjective 2 Subjective: Seen this morning. Finally pain is better controlled. She wants to hold off on epidural for now. Path report pending. Vitals/I&O/Wt Last Vital Signs Temp 98.1 F 08/27/23 10:55 Pulse 107 H 08/27/23 10:55 Resp 15 08/27/23 11:12 BP 133/83 08/27/23 10:55 Pulse Ox 96 08/27/23 10:55 O2 Del Method Nasal Cannula 08/27/23 10:55 O2 Flow Rate 2 08/27/23 10:55 08/26/23 08/27/23 08/27/23 22:59 06:59 14:59 Intake Total 60 / 1127.5 951.25 / 2078.75 240 / 240 Output Total 550 / 550 Balance 60 / 1127.5 401.25 / 1528.75 240 / 240 Weight last 48 hrs Weight 106.821 kg Weight 106.821 kg Weight 87.798 kg Physical Exam 2 Narrative: General: NAD Cardiovascular: RRR. No gallops. No murmurs. Lungs: Breath sounds slightly diminished bilateral bases, no use of accessory muscles, no crackles or wheezes. On nasal cannula. Skin: No jaundice. No rashes. Abdomen: Normal bowel sounds, abdomen TTP in all 4 quadrants. No guarding. Extremities: No cyanosis or clubbing. Range of motion limited secondary to pain. Musculoskeletal: No erythematous joints. Neurological: Moves all 4 extremities. No myoclonus. Urinary Catheter Management: Pinon: Cath Placed During This Visit: yes Reason for Continuing Indwelling Catheter: Acute Urinary Retention or Obstruction Urinary Catheter Date of Insertion: 08/22/23 Urinary Catheter Time of Insertion: 21:45 Data 08/27/23 04:35 08/27/23 04:35 Micro: Microbiology 08/25/23 10:37 Gram Stain - Final Lung Right Upper Lobe Bronchoalveolar Lavage Culture - Preliminary A&P Assessment and plan (1) Hyponatremia: Acute on chronic hyponatremia, associated with hypochloremia, hypercalcemia Suspect multifactorial dyspnea combination of dehydration and mild SIADH. Add urine lites to the sample from last night. Check lipid panel, A1c. Blood sugars appreciated. Slightly improving today. Continue with IV hydration. Repeat BMP in afternoon. (2) Acute urinary retention: Unknown cause. Status post Pinon catheter placement with marked urinary output Continue Pinon catheter for decompression (3) Hilar mass: Seen on CTA done on July 31. Following up with physician at [facility]. Plan for possible biopsy on August 31. CT abdomen pelvis done on admission shows findings consistent with metastatic disease to peritoneum, bilateral adrenal glands and liver with concerns for capsular deposits. Underwent bronchoscopy today. 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 Physical therapy evaluation requested (6) Subcutaneous emphysema: No wheezing on exam Pulmicort twice daily, DuoNebs every 6 hours. Qualifiers: Encounter type: sequela Qualified Code(s): T79.7XXS - Traumatic subcutaneous emphysema, sequela (7) Hypertension: Goal blood pressure less than 140/90 mmHg. So far blood pressure stable off antihypertensives. Continue to monitor. Qualifiers: Hypertension type: unspecified Qualified Code(s): I10 - Essential (primary) hypertension (8) Constipation: (9) Metastatic disease: (10) Malignancy: (11) Lung mass: (12) Back pain: Qualifiers: Back pain location: low back pain Chronicity: acute Back pain laterality: left Sciatica presence: without sciatica Qualified Code(s): M54.50 - Low back pain, unspecified (13) Smoker: (14) Suspected malignant neoplasm: Plan Patient presented to the ER with concerns for urinary retention, not able to have a bowel movement for over a week, CT abdomen pelvis not concerning for significant stool burden, complaining of significant pain going from left groin down to left ankle with tenderness in the espana, pain being spasmodic getting aggravated even on moving the right leg though power could not be assessed because of spasmodic pain. Given concerns for metastatic disease with peritoneal involvement cannot rule out possible cauda equina. Patient does give history of jerky trauma while walking around with her dog. Check ESR, CRP, vitamin B12 and TSH levels For now we will start patient on dexamethasone 10 mg IV 6-hour tail MRI lumbar with and without contrast can be done. Check, D-dimer and if elevated will check lower limb Doppler to rule out DVT. CT hip. Dilaudid 1 mg every 4 hours as needed for pain, continue with Flexeril p.o. 3 times daily as needed Constipation: Unknown cause. Start on aggressive bowel regimen with milk of magnesia and senna and Colace for now. CT abdomen pelvis appreciated. MRI as above. DVT prophylaxis: Lovenox CODE STATUS: Full code Regular diet. Plan for today 08/26/2023 Check bilateral lower extremity Doppler to rule out DVT. D-dimer 9.01 CT hip shows b/l hip fractures. Full body bone scan shows metatstic disease, primary unknown. Discussed with Dr. Levi. Patient will need orthopedic oncology for further treatment of fractures. She will need specialized equipment which our hospital does not currently carry. Pulm consulted. Bronch done today. Path report pending. Gave patient a lab holiday today. Hemoglobin A1c 6.2 Iron 20, percent saturation 9.9 CRP 239.9, vitamin B12 1986 TSH 2.04 Continue Pinon catheter at this time for urinary retention. MRI lumbar spine completed. Cauda equina ruled out. I will stop dexamethasone at this time. Constipation: Stop milk of magnesia. Continue docusate senna 1 tablet twice daily. [facility] completed today, samples sent. Path report pending Has evidence of metastatic disease, primary unknown. Will update patient and family. She will need oncology f/u as outpatient. Discussed with Dr. Patel. We will attempt to get a prelim path report. Continue pain management. Prelim path report possibly showing large cell cancer. Consult Dr. Patel -Increase fentanyl patch to 25 every 72 hours. will start on long acting opiods and switch pain regimen today. Stop IV fluids Full code Lovenox 40 daily for DVT prophylaxis. Attestations 2 Medical Necessity Statement*: Awaiting pathology report to dictate further management. Needs to stay in hospital for pain control due to bilateral hip fractures that are unrepaired at this time. 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
[2023-08-27] MEDS: morphine IR 15 mg Tablet PO ×2 (13:10→20:25)
[2023-08-27] MEDS: LORazepam 2 mg/mL INJ 10 mL MDV 0.5 MG IVP (15:50)
--- NOTE | 2023-08-27 17:25 | PC.NURSE ---
Consult and in room speaking with patient and family.
--- NOTE | 2023-08-27 17:28 | P.CONIM_ITS ---
Providers/Reason For Consult 2 Consulting Physician/Specialty*: Lynnette Levi MD Reason for Consult*: Bilateral hip fractures Requesting Physician: Kayla Ortiz MD Attending Physician: Kayla Ortiz MD Primary Care Provider: Vanessa Alvarado DO History of Present Illness History of Present Illness Chloe Candelario is a 63 year old female who presented to the emergency department on August 22, 2023. Patient was admitted to the hospital with a history of COPD, chronic smoking which she states she quit 1 month ago, and hypertension. Over the week prior to admission, the patient had been complaining of severe pain in her hips, legs, and thighs. She had not ambulated in approximately 8 weeks secondary to excruciating pain. She had also noticed abdominal pain and distention as well as back discomfort. Approximately 1 month prior to this admission, she was diagnosed with a mass in her right lung which was scheduled to be biopsied a few days after her admission. On the day of admission, the patient was found by abdominal CT to have metastatic disease to the peritoneum, bilateral adrenal glands, and liver. On August 24, the patient had a CT scan of the left hip which demonstrated a pathologic fracture of the left femoral head and neck. There was additional soft tissue swelling suggesting pathologic fracture. Also on August 24, the patient had an MRI of the left hip. The pathologic fracture was again visualized with impaction of the left femoral neck extending into the femoral head. Additionally, a hairline fracture involving the subcapital right femur was identified with diffuse edema within the right hip as well. This caused suspicion for pathologic fracture. There were additional lesions in the bony pelvis suspicious for metastatic disease including iliac wings, proximal intertrochanteric femurs, acetabulum I, and the pubic rami bilaterally. There was soft tissue edema about both hips and gluteal soft tissues. I was initially contacted regarding the patient late on the evening of August 24. I suggested a nuclear medicine bone scan, and this was obtained. Bone scan demonstrated multiple bony lesions including the calvarium, bilateral hips, mid and distal femurs bilaterally. Distal femoral condyles. Right mid tibia shaft. Left proximal humerus, as well as a few small punctate foci within the right upper lateral and left posterior ribs. There is additional foci of uptake involving the iliac wings and pubic rami bilaterally with an additional suspected lesion in the mid sternum. At this point, I suggested transfer to higher level of care. This was based on the fact that I had concern a standard hip stem and bipolar hip arthroplasty or even total hip arthroplasty would be associated with a pathologic fracture either into the acetabulum or in the mid femur. This was discussed with the hospitalist at that time. Formal consult was not obtained. The patient was seen later in the week after multiple further conversations with the hospitalist and evaluations of the pathologic lesions. Again, I suggested that the patient be transferred to higher level of care with oncologic orthopedic services secondary to concern for the diffuse nature of the patient's metastatic bone disease. Review of Systems 2 General: Reports: 10 or more systems reviewed and unremarkable except in HPI and below Narrative: Constitutional: She is very weak generally and nonambulatory. Appetite has been poor, and she has been losing weight. She has not previously had fever or night sweating. ECOG score is 3. Eyes:?No change in vision. ENMT: No hearing loss. No sinus congestion/drainage. No mouth sores. No sore throat or difficulty swallowing. Hematologic/Lymphatic: No abnormal bruising or bleeding. Respiratory: She has shortness of breath. She has had chronic cough. No pleuritic pain or hemoptysis. Cardiovascular: No angina pain. No palpitations. Gastrointestinal: She has nausea if she does not eat right away when she first wakes up in the morning. No heartburn or acid reflux. She has constipation. No blood in the stool or black stools. Genitourinary: She has urinary retention and she has indwelling catheter. Musculoskeletal: She has pain in both hips and in the left knee/leg. Integumentary: No skin rash or other skin changes. Neurologic: She has headache. She has been having numbness in her hands and feet. Psych:?She has had depression following the of her significant other last year. Const: Denies: fever(s), chills, body aches, fatigue or malaise Eyes: Denies: change in vision, blurry vision or photophobia Card: Reports: chest pain (known R lung mass); Denies: palpitations, irregular heart rhythm, edema, swelling of feet/ankles, lightheadedness, syncope, pre-syncope, dyspnea on exertion, orthopnea, leg pain with exertion or acrocyanosis Resp: Denies: dyspnea, productive cough, non-productive cough or pain on inspiration GI: Reports: abdominal pain, nausea, constipation and other (leg pain/swelling/reporting she cannot ambulate); Denies: vomiting, hematemesis, diarrhea, hematochezia or melena : Reports: difficulty voiding and pelvic pain; Denies: flank pain, dysuria, urinary frequency or hematuria Musc: Reports: back pain; Denies: neck pain, extremity pain, extremity swelling or joint pain Skin/Breast: Denies: rash Neuro: Denies: headache(s), numbness in extremities, weakness in extremities, sensory changes or dizziness Medications/Allergies Home Medications Medication Instructions Recorded Confirmed Last Taken Type L.acidophil-L.casei-B.bifid-B.longum-FOS 1 cap PO QAM 10/09/22 08/23/23 08/16/23 08:00 History 2 billion cell-50 mg capsule (Probiotic Blend) cetirizine 10 mg tablet (Zyrtec) 10 mg PO QAM PRN seasonal allergies 10/09/22 08/23/23 07/25/23 History umjiltox-bpsu-zrmu 8 mg-folic 400 1 tab PO QAM 10/09/22 08/23/23 08/16/23 08:00 History mcg-K 50 mcg-lutein 300 mcg tablet (Centrum Silver Women) pravastatin 40 mg tablet 40 mg PO QPM 04/25/23 08/23/23 08/21/23 18:00 History tramadol 50 mg tablet 50 mg PO Q6H PRN pain #10 tabs 04/25/23 08/23/23 08/22/23 08:00 Rx acetaminophen 500 mg tablet 1,000 mg PO QPM 07/25/23 08/23/23 08/16/23 History (Acetaminophen Extra Strength) albuterol sulfate 90 mcg/actuation 2 inh inhalation Q6H PRN shortness 07/25/23 08/23/23 Unknown Rx aerosol inhaler of breath or wheezing #8.5 grams cholecalciferol (vitamin D3) 125 125 mcg PO DAILY 07/25/23 08/23/23 08/16/23 08:00 History mcg (5,000 unit) tablet (Vitamin D3) guaifenesin 1,200 mg tablet, 1,200 mg PO BID #14 tabs 07/25/23 08/23/23 08/16/23 08:00 Rx extended release 12 hr ipratropium 0.5 mg-albuterol 3 mg 3 ml inhalation Q6H PRN Shortness 07/25/23 08/23/23 08/22/23 13:00 History (2.5 mg base)/3 mL nebulization Of Breath Or Wheezing soln lisinopril 20 mg tablet 20 mg PO QPM 07/25/23 08/23/23 08/21/23 18:00 History naproxen sodium 220 mg capsule 440 mg PO DAILY 07/25/23 08/23/23 07/25/23 History (Aleve) attqn-9z-yyc-epa-fish oil 120 1 cap PO DAILY 07/25/23 08/23/23 08/16/23 08:00 History mg-180 mg-60 mg-1,200 mg capsule, DR (Fish Oil) naproxen 500 mg tablet (Naprosyn) 500 mg PO BID PRN pain #20 tabs 08/01/23 08/23/23 08/16/23 Rx Allergies Allergy/AdvReac Type Severity Reaction Status Date / Time oxycodone [From Percocet] Allergy ALGY-Hives Verified 07/25/23 11:52 Current Medications Generic Name Dose Route Start Last Admin Trade Name Freq PRN Reason Stop Dose Admin Albuterol Sulfate 2.5 mg 08/22/23 23:50 08/27/23 13:27 Albuterol 2.5 Mg/3 Ml Neb INHALATION 2.5 mg Q4H.RESPIRATORY PRN Administration WHEEZING Budesonide 0.5 mg 08/23/23 20:00 08/27/23 08:15 Budesonide 0.5 Mg/2 Ml Neb INHALATION 0.5 mg BID.RESPIRATORY JAMES Administration Cyclobenzaprine HCl 5 mg 08/23/23 00:53 08/27/23 10:02 Cyclobenzaprine 10 Mg Tablet PO 5 mg TID PRN Administration MUSCLE SPASMS Enoxaparin Sodium 40 mg 08/23/23 21:00 08/25/23 21:29 Enoxaparin 40 Mg/0.4 Ml Syringe SUBCUT 40 mg BEDTIME JAMES Administration Fentanyl 1 patch 08/26/23 10:00 08/26/23 11:30 Fentanyl 25 Mcg Patch TRANSDERMA 1 patch Q72H JAMES Administration Hydromorphone HCl 1 mg 08/26/23 16:14 08/27/23 14:33 Hydromorphone 1 Mg/Ml Inj 1 Ml IVP 1 mg Q4H PRN Administration SEVERE PAIN Lorazepam 0.5 mg 08/26/23 16:12 08/27/23 15:50 Lorazepam 2 Mg/Ml Inj 10 Ml Mdv IVP 0.5 mg TID PRN Administration ANXIETY Magnesium Hydroxide 30 ml 08/23/23 21:00 08/26/23 22:23 Magnesium Hydroxide 30 Ml Udc PO Not Given BEDTIME JAMES Morphine Sulfate 15 mg 08/27/23 11:36 08/27/23 13:10 Morphine Ir 15 Mg Tablet PO 15 mg Q4H PRN Administration SEVERE PAIN Non-Formulary Med ( 1 each 08/25/23 18:00 08/26/23 17:20 Pravastatin 40 Mg PO 1 each Tab) QPM JAMES Administration Senna/Docusate Sodium 1 tab 08/23/23 18:00 08/27/23 10:03 Sennosides-Docusate Tablet PO 1 tab BID JAMES Administration PFSH Acute 2 PFSH: Medical History (Updated 08/28/23 @ 15:14 by Lynnette Levi MD) Hypertension Lung mass Cervical spondylosis with myelopathy Rotator cuff impingement syndrome of right shoulder Cervical myelopathy No pertinent family history Surgical History (Updated 08/27/23 @ 18:39 by Anselmo Patel MD) History of tonsillectomy History of hysterectomy with bilateral oophorectomy Social History Smoking and tobacco/nicotine status: former use of tobacco/nicotine Alcohol intake: former Substance/Drug Use: former Vitals/I&O/Wt Last Vital Signs Temp 101.0 F H 08/27/23 16:00 Pulse 105 H 08/27/23 16:00 Resp 17 08/27/23 16:00 BP 133/79 08/27/23 16:00 Pulse Ox 95 08/27/23 16:00 O2 Del Method Nasal Cannula 08/27/23 16:00 O2 Flow Rate 2 08/27/23 13:27 08/27/23 08/27/23 08/27/23 06:59 14:59 22:59 Intake Total 951.25 / 2078.75 765 / 765 Output Total 550 / 550 Balance 401.25 / 1528.75 765 / 765 Weight last 48 hrs Weight 235 lb 8 oz Weight 235 lb 8 oz Weight 193 lb 9 oz Physical Exam 2 Narrative: The patient is seen in the room with family. She is alert and awake, and I discussed with her the reasons and plans for her discharge to a higher level of care with oncologic services. Further evaluation under physical exam is not accomplished as this would merely cause the patient pain and give us no significant information. The family also seems comfortable with the decision for discharge. They seem to understand the reasons. At the time I saw the patient, Dr. Patel was in the room to discuss appropriate treatment for the patient's cancer diagnosis. Patient and family are in agreement. 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 On August 24, the patient had a CT scan of the left hip which demonstrated a pathologic fracture of the left femoral head and neck. There was additional soft tissue swelling suggesting pathologic fracture. Also on August 24, the patient had an MRI of the left hip. The pathologic fracture was again visualized with impaction of the left femoral neck extending into the femoral head. Additionally, a hairline fracture involving the subcapital right femur was identified with diffuse edema within the right hip as well. This caused suspicion for pathologic fracture. There were additional lesions in the bony pelvis suspicious for metastatic disease including iliac wings, proximal intertrochanteric femurs, acetabulum I, and the pubic rami bilaterally. There was soft tissue edema about both hips and gluteal soft tissues. I was initially contacted regarding the patient late on the evening of August 24. I suggested a nuclear medicine bone scan, and this was obtained. Bone scan demonstrated multiple bony lesions including the calvarium, bilateral hips, mid and distal femurs bilaterally. Distal femoral condyles. Right mid tibia shaft. Left proximal humerus, as well as a few small punctate foci within the right upper lateral and left posterior ribs. There is additional foci of uptake involving the iliac wings and pubic rami bilaterally with an additional suspected lesion in the mid sternum. At this point, I suggested transfer to higher level of care. This was based on the fact that I had concern a standard hip stem and bipolar hip arthroplasty or even total hip arthroplasty would be associated with a pathologic fracture either into the acetabulum or in the mid femur. This was discussed with the hospitalist at that time. Formal consult was not obtained. The patient was seen later in the week after multiple further conversations with the hospitalist and evaluations of the pathologic lesions. Again, I suggested that the patient be transferred to higher level of care with oncologic orthopedic services secondary to concern for the diffuse nature of the patient's metastatic bone disease. Discussion was undertaken with the chief orthopedic resident at [facility] who noted that the oncologic services would be willing to accept this patient after full discussion and evaluation. (2) Subcapital fracture of left hip: (3) Subcapital fracture of right hip: Consult Attestations 2 Medical Necessity Statement: Patient is awaiting discharge to higher level of care. 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
[2023-08-27] MEDS: PRAVASTATIN 40 MG 1 EACH PO (17:57)
[2023-08-27] MEDS: morphine ER (12 HR) 15 mg Tablet PO (17:57)
--- NOTE | 2023-08-27 18:11 | P.CONIM_ITS ---
Providers/Reason For Consult 2 Consulting Physician/Specialty*: Medical oncology Reason for Consult*: Non-small cell lung cancer Requesting Physician: Kayla Ortiz MD Attending Physician: Kayla Ortiz MD Primary Care Provider: Vanessa Alvarado DO History of Present Illness History of Present Illness This is a 63-year-old woman with newly diagnosed non-small cell lung cancer, by clinical evaluation stage IVB (T4, N2, M1c). Her medical history includes hypertension, hyperlipidemia, COPD, and cervical myelopathy. She had initially presented to the emergency room on 07/25/2023 with chest pain. Chest x-ray showed no acute findings. On 07/31/2023 she had further evaluation with CT pulmonary angiogram. That study showed no evidence of pulmonary embolus, but there was noted to be an irregular soft tissue mass in the right hilum measuring at least 6.1 x 3.6 cm. The mass was noted to extend into the mediastinum subcarinal station and it was noted to produce significant mass effect within complete occlusion of the pulmonary artery supplying the right upper lobe. There were 2 enlarged right upper paratracheal lymph nodes measuring up to 16 mm concerning for metastatic disease. A partially visualized hypodense lesion in the right adrenal gland measured at least 3.6 x 1.8 cm, concerning for metastatic disease. On 08/22/2023 she was admitted to the hospital after presenting to the emergency room with worsening pain in her hips and left knee/leg. At that point she basically had become unable to walk. She also complained of abdominal pain and distention, and she has been having difficulty voiding. She was found to have urinary retention. Her CT abdomen/pelvis showed a right hepatic dome capsular lesion measuring 1.6 x 1 cm and bilateral adrenal nodules measuring 3.8 x 1.7 cm on the right and 1.8 x 1.8 cm on the left, suspicious for metastases. Anterior peritoneal nodularity appeared consistent with metastatic disease. There were no bone lesions noted on that study and there was no evidence of metastatic disease by CT or MRI of the lumbar spine. CT of the left hip showed pathologic fracture involving the left femoral head and neck. MRI of the hip showed pathologic fracture with impaction of the left femoral neck extending into the left femoral head and a small hairline fracture involving the subcapital right femoral head, suspicious for pathologic fracture. Additional punctate suspected metastatic lesions were noted in the bony pelvis. Bone scan showed punctate areas of osseous metastatic disease involving the calvarium, bilateral hips, mid and distal femurs bilaterally, distal femoral condyles, right mid tibial shaft, left proximal humerus, and a few small punctate foci within the right upper lateral and left posterior ribs. Additional foci of uptake involve the iliac wings and pubic rami bilaterally, there was additional suspected lesion in the mid sternum. On 08/25/2023 she underwent bronchoscopy/EBUS. There were no endobronchial lesions identified. The right upper lobe opening was narrowed due to extrinsic compression. By ultrasound abnormal hypoechoic areas were noted in station 11L, station 4L, station 7, and station 11R. Multiple FNA biopsies were obtained from all sites. 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 Review of Systems 2 Narrative: Constitutional: She is very weak generally and nonambulatory. Appetite has been poor, and she has been losing weight. She has not previously had fever or night sweating. ECOG score is 3. Eyes:?No change in vision. ENMT: No hearing loss. No sinus congestion/drainage. No mouth sores. No sore throat or difficulty swallowing. Hematologic/Lymphatic: No abnormal bruising or bleeding. Respiratory: She has shortness of breath. She has had chronic cough. No pleuritic pain or hemoptysis. Cardiovascular: No angina pain. No palpitations. Gastrointestinal: She has nausea if she does not eat right away when she first wakes up in the morning. No heartburn or acid reflux. She has constipation. No blood in the stool or black stools. Genitourinary: She has urinary retention and she has indwelling catheter. Musculoskeletal: She has pain in both hips and in the left knee/leg. Integumentary: No skin rash or other skin changes. Neurologic: She has headache. She has been having numbness in her hands and feet. Psych:?She has had depression following the of her significant other last year. Medications/Allergies Home Medications Medication Instructions Recorded Confirmed Last Taken Type L.acidophil-L.casei-B.bifid-B.longum-FOS 1 cap PO QAM 10/09/22 08/23/23 08/16/23 08:00 History 2 billion cell-50 mg capsule (Probiotic Blend) cetirizine 10 mg tablet (Zyrtec) 10 mg PO QAM PRN seasonal allergies 10/09/22 08/23/23 07/25/23 History ifvxxvcy-bakt-wmsr 8 mg-folic 400 1 tab PO QAM 10/09/22 08/23/23 08/16/23 08:00 History mcg-K 50 mcg-lutein 300 mcg tablet (Centrum Silver Women) pravastatin 40 mg tablet 40 mg PO QPM 04/25/23 08/23/23 08/21/23 18:00 History tramadol 50 mg tablet 50 mg PO Q6H PRN pain #10 tabs 04/25/23 08/23/23 08/22/23 08:00 Rx acetaminophen 500 mg tablet 1,000 mg PO QPM 07/25/23 08/23/23 08/16/23 History (Acetaminophen Extra Strength) albuterol sulfate 90 mcg/actuation 2 inh inhalation Q6H PRN shortness 07/25/23 08/23/23 Unknown Rx aerosol inhaler of breath or wheezing #8.5 grams cholecalciferol (vitamin D3) 125 125 mcg PO DAILY 07/25/23 08/23/23 08/16/23 08:00 History mcg (5,000 unit) tablet (Vitamin D3) guaifenesin 1,200 mg tablet, 1,200 mg PO BID #14 tabs 07/25/23 08/23/23 08/16/23 08:00 Rx extended release 12 hr ipratropium 0.5 mg-albuterol 3 mg 3 ml inhalation Q6H PRN Shortness 07/25/23 08/23/23 08/22/23 13:00 History (2.5 mg base)/3 mL nebulization Of Breath Or Wheezing soln lisinopril 20 mg tablet 20 mg PO QPM 07/25/23 08/23/23 08/21/23 18:00 History naproxen sodium 220 mg capsule 440 mg PO DAILY 07/25/23 08/23/23 07/25/23 History (Aleve) gnhjn-8k-bkp-epa-fish oil 120 1 cap PO DAILY 07/25/23 08/23/23 08/16/23 08:00 History mg-180 mg-60 mg-1,200 mg capsule, DR (Fish Oil) naproxen 500 mg tablet (Naprosyn) 500 mg PO BID PRN pain #20 tabs 08/01/23 08/23/23 08/16/23 Rx Allergies Allergy/AdvReac Type Severity Reaction Status Date / Time oxycodone [From Percocet] Allergy ALGY-Hives Verified 07/25/23 11:52 Current Medications Generic Name Dose Route Start Last Admin Trade Name Freq PRN Reason Stop Dose Admin Albuterol Sulfate 2.5 mg 08/22/23 23:50 08/27/23 13:27 Albuterol 2.5 Mg/3 Ml Neb INHALATION 2.5 mg Q4H.RESPIRATORY PRN Administration WHEEZING Budesonide 0.5 mg 08/23/23 20:00 08/27/23 08:15 Budesonide 0.5 Mg/2 Ml Neb INHALATION 0.5 mg BID.RESPIRATORY JAMES Administration Cyclobenzaprine HCl 5 mg 08/23/23 00:53 08/27/23 10:02 Cyclobenzaprine 10 Mg Tablet PO 5 mg TID PRN Administration MUSCLE SPASMS Enoxaparin Sodium 40 mg 08/23/23 21:00 08/25/23 21:29 Enoxaparin 40 Mg/0.4 Ml Syringe SUBCUT 40 mg BEDTIME JAMES Administration Fentanyl 1 patch 08/26/23 10:00 08/26/23 11:30 Fentanyl 25 Mcg Patch TRANSDERMA 1 patch Q72H JAMES Administration Hydromorphone HCl 1 mg 08/26/23 16:14 08/27/23 14:33 Hydromorphone 1 Mg/Ml Inj 1 Ml IVP 1 mg Q4H PRN Administration SEVERE PAIN Lorazepam 0.5 mg 08/26/23 16:12 08/27/23 15:50 Lorazepam 2 Mg/Ml Inj 10 Ml Mdv IVP 0.5 mg TID PRN Administration ANXIETY Magnesium Hydroxide 30 ml 08/23/23 21:00 08/26/23 22:23 Magnesium Hydroxide 30 Ml Udc PO Not Given BEDTIME JAMES Morphine Sulfate 15 mg 08/27/23 18:00 08/27/23 17:57 Morphine Er (12 Hr) 15 Mg Tablet PO 15 mg BID JAMES Administration Morphine Sulfate 15 mg 08/27/23 11:36 08/27/23 13:10 Morphine Ir 15 Mg Tablet PO 15 mg Q4H PRN Administration SEVERE PAIN Non-Formulary Med ( 1 each 08/25/23 18:00 08/27/23 17:57 Pravastatin 40 Mg PO 1 each Tab) QPM JAMES Administration Senna/Docusate Sodium 1 tab 08/23/23 18:00 08/27/23 17:57 Sennosides-Docusate Tablet PO 1 tab BID JAMES Administration PFSH Acute 2 PFSH: Medical History (Updated 08/27/23 @ 18:41 by Anselmo Patel MD) Hypertension Lung mass Cervical spondylosis with myelopathy Rotator cuff impingement syndrome of right shoulder Cervical myelopathy No pertinent family history Surgical History (Updated 08/27/23 @ 18:39 by Anselmo Patel MD) History of tonsillectomy History of hysterectomy with bilateral oophorectomy Social History Smoking and tobacco/nicotine status: former use of tobacco/nicotine Alcohol intake: former Substance/Drug Use: former Vitals/I&O/Wt Last Vital Signs Temp 101.0 F H 08/27/23 16:00 Pulse 105 H 08/27/23 16:00 Resp 17 08/27/23 16:00 BP 133/79 08/27/23 16:00 Pulse Ox 95 08/27/23 16:00 O2 Del Method Nasal Cannula 08/27/23 16:00 O2 Flow Rate 2 08/27/23 13:27 08/27/23 08/27/23 08/27/23 06:59 14:59 22:59 Intake Total 951.25 / 2078.75 765 / 765 Output Total 550 / 550 650 / 650 Balance 401.25 / 1528.75 765 / 765 -650 / 115 Weight last 48 hrs Weight 106.821 kg Weight 106.821 kg Weight 87.798 kg Physical Exam 2 Narrative: Constitutional: She still appears to be in reasonably good general health. Eyes: Sclerae nonicteric. Conjunctivae clear. ENMT: No lesions noted in the oral cavity. Neck: Neck shows no mass or thyromegaly. Hematologic/Lymphatic: No cervical, clavicular, or axillary adenopathy. Respiratory: Lungs sound clear with diminished air movement bilaterally. Cardiovascular: Heart rhythm is regular. There is no murmur, gallop, or rub noted. Abdomen: Mildly distended. There is tenderness in the upper abdomen. Liver and spleen are not enlarged. There is no abdominal mass or ascites noted and there is no inguinal adenopathy. Extremities: No edema. Pedal pulses are palpable bilaterally. Integumentary: No rashes. No suspicious skin lesions noted. Neurologic: Exam is limited due to her immobility. She does not have any obvious neurologic deficit. Urinary Catheter Management: Minor: Cath Placed During This Visit: yes Reason for Continuing Indwelling Catheter: Acute Urinary Retention or Obstruction Urinary Catheter Date of Insertion: 08/22/23 Urinary Catheter Time of Insertion: 21:45 Data 08/27/23 04:35 08/27/23 04:35 Micro: Microbiology 08/27/23 17:02 Blood Culture - Preliminary Blood SPECIMEN COLLECTED 08/27/23 17:02 Blood Culture - Preliminary Blood SPECIMEN COLLECTED A&P Assessment and plan (1) Malignant neoplasm of hilus of right lung: Patient with CT evidence of right hilar mass and mediastinal adenopathy, confirmed on biopsy to be large cell carcinoma. She has multiple sites of metastatic involvement including liver, bilateral adrenal glands, and peritoneum, as well as multiple sites of bone involvement. She has associated pathologic left femoral neck fracture and hairline fracture of the subcapital right femoral head. At this time arrangements are being made to transfer to [facility] for orthopedic management. Patient and family are aware that she has extensive metastatic disease from a primary tumor in the right lung. We discussed the fact that it is a non-small cell type malignancy and that it is incurable. Her skeletal issues will have to be stabilized before considering any systemic therapy, but those options would potentially include chemotherapy and/or immunotherapy or possibly a targeted therapy, depending on the completed pathologic analysis of the biopsy, which may take up to several weeks. Those results will be forwarded onto [facility] as soon as they become available. In the meantime, she also should complete staging with head MRI with and without contrast. Coding Level of Care Code 14123 Diagnoses Malignant neoplasm of hilus of right lung C34.01
--- NOTE | 2023-08-27 20:20 | P.PN_ITS ---
Subjective 2 Subjective: Pathology called and informed preliminary report large cell carcinoma-informed results to consulted oncologist as well as patient and her family at bedside. Given her extensive metastatic disease-once the workup is completed-she would have options like chemotherapy and/or immunotherapy or possibly a targeted therapy depending on completed pathologic analysis of the biopsy. Oncology is going to discuss with them shortly. Patient continues to complain of pain although epidural is helping her Patient is being transferred to higher facility for orthopedic oncology for her bilateral pathological hip fracture Medications: Reviewed: Yes Vitals/I&O/Wt Last Vital Signs Temp 98.8 F 08/27/23 20:00 Pulse 105 H 08/27/23 20:00 Resp 18 08/27/23 20:00 BP 147/78 08/27/23 20:00 Pulse Ox 96 08/27/23 20:00 O2 Del Method Nasal Cannula 08/27/23 20:00 O2 Flow Rate 2 08/27/23 13:27 08/27/23 08/27/23 08/27/23 06:59 14:59 22:59 Intake Total 951.25 / 2078.75 765 / 765 Output Total 550 / 550 650 / 650 Balance 401.25 / 1528.75 765 / 765 -650 / 115 Weight last 48 hrs Weight 235 lb 8 oz Weight 235 lb 8 oz Weight 193 lb 9 oz Physical Exam 2 Narrative: General: alert, NAD, lying in bed on 2 L supplemental oxygen HEENT: conj clear, EOMI, PERRL, mmm, Neck: supple, no meningismus Heme: no cervical LAP Respiratory: Inspection: No visible deformity of the chest wall Palpation: Trachea is mildly deviated to the right, bilateral symmetric expansion Percussion: Bilateral tympanic percussion note both anterior and posteriorly Auscultation: Bilateral clear to auscultation both anterior and posteriorly, no crackles wheezing or rhonchi Cardiovascular: rrr, nl s1s2, no mrg Abdomen: soft, nt, nd, no r/g, bs+ Extremities: pulses +, no edema, no c/c : no CVA tenderness Skin: intact, no rash MSK: no back or neck pain Neurologic: grossly intact Urinary Catheter Management: Minor: Cath Placed During This Visit: yes Reason for Continuing Indwelling Catheter: Acute Urinary Retention or Obstruction Urinary Catheter Date of Insertion: 08/22/23 Urinary Catheter Time of Insertion: 21:45 Data 08/27/23 04:35 08/27/23 04:35 Other Labs: Radiology Impressions Chest X-Ray 08/22/23 20:38 IMPRESSION: No acute cardiopulmonary process. Abdomen/Pelvis CT 08/22/23 20:39 IMPRESSION: 1. Findings consistent with metastatic disease to the peritoneum, bilateral adrenal glands and liver, in particularly capsular deposits. 2. Post cholecystectomy with no biliary dilatation. 3. Diverticulosis with no changes of diverticulitis. COMMENTS: Consistent with the [employer]'s Incidental Findings Committee white paper (J Am Jade Radiol 2018): Any incidental renal lesion less than 1 cm or classified as too small to characterize, or any incidental cystic renal lesion characterized as simple-appearing, is likely benign. No follow-up imaging is recommended for these lesions per consensus recommendations based on imaging criteria. Lumbar Spine CT 08/22/23 20:39 IMPRESSION: 1. No severe thecal sac compression. 2. No metastatic osseous lesion in the lumbar spine. Lumbar Spine MRI 08/23/23 11:53 IMPRESSION: Mild degenerative changes. Most prominently there is moderate neural foraminal narrowing and left-sided L5-S1 related to broad-based lateral protrusion and underlying osteophyte. No abnormal enhancement. Venous Duplex 08/23/23 14:47 IMPRESSION: No evidence of deep vein thrombosis. Hip X-Ray 08/24/23 06:37 IMPRESSION: 1. Acute fracture of the subcapital femoral neck on the left. Laboratory Results WBC 9.65 10^3/uL (3.29-11.43) 08/27/23 04:35 RBC 3.37 10^6/uL (3.85-5.65) L 08/27/23 04:35 Hgb 9.50 g/dL (11.27-16.99) L 08/27/23 04:35 Hct 29.4 % (36-47) L 08/27/23 04:35 MCV 87.2 fl (85-98) 08/27/23 04:35 MCH 28.2 pg (27-33) 08/27/23 04:35 MCHC 32.3 g/dL (30-55) 08/27/23 04:35 RDW 12.8 % (12.1-15.1) 08/27/23 04:35 Plt Count 315 10^3/cmm (157-399) 08/27/23 04:35 MPV 9.7 fL (7.4-10.4) 08/27/23 04:35 Neut % (Auto) 70.8 % 08/27/23 04:35 Lymph % (Auto) 14.2 % 08/27/23 04:35 [place] % (Auto) 13.0 % 08/27/23 04:35 Eos % (Auto) 0.7 % 08/27/23 04:35 Baso % (Auto) 0.3 % 08/27/23 04:35 Neut # (Auto) 6.83 10^3/uL (1.8-7.7) 08/27/23 04:35 Lymph # (Auto) 1.4 10^3/uL (0.8-4.8) 08/27/23 04:35 [place] # (Auto) 1.3 10^3/uL (0.2-0.9) H 08/27/23 04:35 Eos # (Auto) 0.1 10^3/uL (0.0-0.8) 08/27/23 04:35 Baso # (Auto) 0.0 10^3/uL (0.0-0.1) 08/27/23 04:35 Nucleated RBC % (auto) 0 % 08/27/23 04:35 Nucleated RBCs # 0.0 /100WBC 08/27/23 04:35 ESR 64 mm/hr (0-15) H 08/23/23 02:21 D-Dimer 9.01 ug/mLFEU (0-0.59) H 08/23/23 15:06 Sodium 127 mmol/L (136-145) L 08/27/23 04:35 Potassium 3.9 mmol/L (3.5-5.1) 08/27/23 04:35 Chloride 90 mmol/L (98-107) L 08/27/23 04:35 Carbon Dioxide 25 mmol/L (22-29) 08/27/23 04:35 Anion Gap 15.9 (5-19) 08/27/23 04:35 BUN 11 mg/dL (8-23) 08/27/23 04:35 Creatinine 0.4 mg/dL (0.5-0.9) L 08/27/23 04:35 GFR Calculation 162.3 mL/min (90-130) H 08/27/23 04:35 Glucose 87 mg/dL (65-115) 08/27/23 04:35 Estimat Average Glucose 108 08/24/23 02:26 Hemoglobin A1c 5.4 % (4.0-6.0) 08/24/23 02:26 Calculated Osmolality 263 mOsm/kg (285-295) L 08/27/23 04:35 Calcium 8.4 mg/dL (8.5-10.5) L 08/27/23 04:35 Phosphorus 3.4 mg/dL (2.5-4.5) 08/26/23 05:50 Magnesium 2.0 mg/dL (1.7-2.3) 08/27/23 04:35 Iron 20 ug/dL (37-145) L 08/23/23 02:21 TIBC 202 mcg/dl 08/23/23 02:21 % Saturation 9.9 % (20-50) L 08/23/23 02:21 Unsat Iron Binding 182 ug/dL (112-347) 08/23/23 02:21 Total Bilirubin 0.3 mg/dL (0.15-1.2) 08/27/23 04:35 AST 16 U/L (0-32) 08/27/23 04:35 ALT 21 U/L (0-33) 08/27/23 04:35 Alkaline Phosphatase 79 U/L (35-105) 08/27/23 04:35 C-Reactive Protein 239.9 mg/L (0.0-4.9) H 08/23/23 02:21 NT-Pro-B Natriuret Pep 85 pg/mL (0-125) 08/23/23 02:21 Total Protein 5.6 g/dL (6.6-8.7) L 08/27/23 04:35 Albumin 2.8 g/dL (3.5-5.2) L 08/27/23 04:35 Globulin 2.8 g/dL (1.3-4.6) 08/27/23 04:35 Triglycerides 95 mg/dL (0-150) 08/24/23 02:26 Cholesterol 173 mg/dL (0-200) 08/24/23 02:26 LDL Cholesterol, Calc 119 mg/dL (50-129) 08/24/23 02:26 Total VLDL Cholesterol 19 mg/dL (0-30) 08/24/23 02: HDL Cholesterol 35 mg/dL (60-100) L 08/24/23 02: Cholesterol/HDL Ratio 4.94 mg/dL (0.0-4.40) H 08/24/23 02: Lipase 17 U/L (13-60) 08/22/23 20:21 Vitamin B12 1986 pg/mL (232-1245) H 08/23/23 02: Folate > 20.0 ng/mL (4.8-37.3) 08/24/23 02: TSH 2.04 uIU/mL (0.27-4.20) 08/23/23 02: Urine Color Yellow (Yellow) 08/22/23 21:47 Urine Appearance Sl hazy (CLEAR) A 08/22/23 21:47 Urine pH 5 (5-7) 08/22/23 21:47 Ur Specific [place] 1.015 (1.005-1.030) 08/22/23 21:47 Urine Protein Trace (Negative) 08/22/23 21:47 Urine Glucose (UA) Norm (Normal) 08/22/23 21:47 Urine Ketones 2+ (Negative) H 08/22/23 21:47 Urine Blood Trace (Negative) H 08/22/23 21:47 Urine Nitrate Negative (Negative) 08/22/23 21:47 Urine Bilirubin Neg (Negative) 08/22/23 21:47 Urine Urobilinogen Norm mg/dL (Negative) 08/22/23 21:47 Ur Leukocyte Esterase Negative (Negative) 08/22/23 21:47 Urine RBC 0-4 /hpf (0-2) H 08/22/23 21:47 Urine WBC 0-4 /hpf (0-5) H 08/22/23 21:47 Ur Squamous Epith Cells 0-4 /hpf (0-5) H 08/22/23 21:47 Amorphous Sediment Trace /hpf 08/22/23 21:47 Urine Bacteria Trace /hpf (NONE) 08/22/23 21:47 Ur Random Sodium 18 mmol/L 08/22/23 21:47 Ur Random Potassium 23 mmol/L 08/22/23 21:47 Ur Random Chloride 18 mmol/L 08/22/23 21:47 Ur Random Urea Nitrogn 421 mg/dL 08/22/23 21:47 Bronch Specimen Source Right upper lobe bal 08/25/23 10:37 Bronchial Fluid Color Slight pink 08/25/23 10:37 Bronchial Fluid Appearance Cloudy (CLEAR) 08/25/23 10:37 Bronch Cells Counted 200 08/25/23 10:37 Bronchial Neutrophils 12.00 % (0.9-2.3) H 08/25/23 10:37 Bronchial Lymphocytes 7.00 % (10.71-12.91) L 08/25/23 10:37 Bronchial Eosinophils 0.00 % (0.13-0.25) L 08/25/23 10:37 Bronchial Macrophages 81.00 % (83.6-86.8) L 08/25/23 10:37 Bronchial Diff Comment Yes 08/25/23 10:37 Lymphoma Panel See report 08/25/23 11:25 Micro: Microbiology 08/27/23 17:02 Blood Culture - Preliminary Blood SPECIMEN COLLECTED 08/27/23 17:02 Blood Culture - Preliminary Blood SPECIMEN COLLECTED A&P Assessment and plan (1) Malignant neoplasm of hilus of right lung: CTA 07/31/2023-right hilar mass and several lymph nodes - suspicious for malignancy in patient with extensive smoking history Even abdominopelvic CT scan during this admission-is suspicious for mets to peritoneum On 08/25/2023 she underwent bronchoscopy/EBUS. There were no endobronchial lesions identified. The right upper lobe opening was narrowed due to extrinsic compression. By ultrasound abnormal hypoechoic areas were noted in station 11L, station 4L, station 7, and station 11R. Multiple FNA biopsies were obtained from all sites. 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 -informed results to consulted oncologist as well as patient and her family at bedside. Given her extensive metastatic disease-once the workup is completed- she would have options like chemotherapy and/or immunotherapy or possibly a targeted therapy depending on completed pathologic analysis of the biopsy. Oncology is going to discuss with them shortly. 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
[2023-08-28] VITALS (12 sets, daily range): BP systolic 125–143; BP diastolic 75–78; PULSE 97–108; RESP 16–20; TEMP 36.4–37.2; O2SAT 93–98; BMI 38.7
[2023-08-28] MEDS: morphine ER (12 HR) 15 mg Tablet PO (08:07)
[2023-08-28] MEDS: sennosides-docusate Tablet 1 TAB PO (08:07)
[2023-08-28] MEDS: albuterol 2.5 mg/3 mL Neb INHALATION ×2 (08:13→11:07)
[2023-08-28] MEDS: budesonide 0.5 mg/2 mL Neb INHALATION (08:13)
--- NOTE | 2023-08-28 08:24 | P.TS_ITS ---
Transfer Summary Providers Date of Admission: 08/23/23 11:58 Date of Discharge/Transfer: 08/28/23 Attending Provider at Admission: Rehan Tinoco MD Attending Provider at Transfer: Kayla Ortiz MD Primary Care Provider: Vanessa Alvarado DO Transfer Plans: Anticipated date of transfer: 08/28/23 . Receiving Facility: [facility] . Receiving Provider: Chetan Galindo Team . Diagnoses at Discharge Discharge Diagnosis (1) Malignant neoplasm of hilus of right lung: Status: Acute Reason for Visit Reason for Visit ABD PAIN Brief History: As per Dr. Tinoco Chloe Candelario is a 63 year old female with past medical history significant for hypertension, hyperlipidemia, COPD, tobacco use disorder in early remission, and recently found lung mass presents to the emergency department with severe abdominal pain and distention. Patient reports abdominal symptoms for the past several week but states the pain/distention got severe today prompting her to seek care. She endorses associated symptoms of inability to walk due to lower extremity weakness/pain, inability to urinate, back/hip/leg/thigh pains, fatigue, nausea, and poor oral intake. Reports last bowel movement about a week ago.Denies fevers or emesis. In the emergency department, patient was found to be tachycardic with elevated blood pressure. She wearing 3 L oxygen without charted hypoxia. Labs revealed acute on chronic hyponatremia with hypoosmolality, hypochloremia, hypercalcemia, anion gap with normal bicarb, and anemia. Urinalysis with 2+ ketones. Chest x- ray with negative for acute cardiopulmonary processes. CT abdomen/pelvis revealed findings consistent with metastatic disease to the peritoneum, bilateral adrenal glands and liver. She was found to have urinary retention for which Minor catheter was placed with marked urine output. CT of the lumbar spine showed no metastatic osseous lesions in the lumbar spine and no severe thecal sac compression. Of note, patient was evaluated emergency department 07/31/2023. At that time she was found to have a right hilar station mass measuring at least 6.1 x 3.6 cm with extension into the medial side of the subcarinal station. She had lymphadenopathy with 2 enlarged right upper paratracheal lymph nodes measuring up to 1.6 cm concerning for metastatic disease. Partially visualized right adrenal lesion was noted as well. She was referred to pulmonary. Patient reports she has a biopsy scheduled for this through the [facility] system. Family is bedside and supportive. They report even before this acute illness in the past week the patient has had significant decline in function over the past month or so. She has gotten progressively weaker with difficulty ambulating even prior to her abdominal distention. Hospital Course Hospital Course This is a 63-year-old woman with newly diagnosed non-small cell lung cancer, by clinical evaluation stage IVB (T4, N2, M1c). Her medical history includes hypertension, hyperlipidemia, COPD, and cervical myelopathy. She had initially presented to the emergency room on 07/25/2023 with chest pain. Chest x-ray showed no acute findings. On 07/31/2023 she had further evaluation with CT pulmonary angiogram. That study showed no evidence of pulmonary embolus, but there was noted to be an irregular soft tissue mass in the right hilum measuring at least 6.1 x 3.6 cm. The mass was noted to extend into the mediastinum subcarinal station and it was noted to produce significant mass effect within complete occlusion of the pulmonary artery supplying the right upper lobe. There were 2 enlarged right upper paratracheal lymph nodes measuring up to 16 mm concerning for metastatic disease. A partially visualized hypodense lesion in the right adrenal gland measured at least 3.6 x 1.8 cm, concerning for metastatic disease. On 08/22/2023 she was admitted to the hospital after presenting to the emergency room with worsening pain in her hips and left knee/leg. At that point she basically had become unable to walk. She also complained of abdominal pain and distention, and she has been having difficulty voiding. She was found to have urinary retention. Her CT abdomen/pelvis showed a right hepatic dome capsular lesion measuring 1.6 x 1 cm and bilateral adrenal nodules measuring 3.8 x 1.7 cm on the right and 1.8 x 1.8 cm on the left, suspicious for metastases. Anterior peritoneal nodularity appeared consistent with metastatic disease. There were no bone lesions noted on that study and there was no evidence of metastatic disease by CT or MRI of the lumbar spine. CT of the left hip showed pathologic fracture involving the left femoral head and neck. MRI of the hip showed pathologic fracture with impaction of the left femoral neck extending into the left femoral head and a small hairline fracture involving the subcapital right femoral head, suspicious for pathologic fracture. Additional punctate suspected metastatic lesions were noted in the bony pelvis. Bone scan showed punctate areas of osseous metastatic disease involving the calvarium, bilateral hips, mid and distal femurs bilaterally, distal femoral condyles, right mid tibial shaft, left proximal humerus, and a few small punctate foci within the right upper lateral and left posterior ribs. Additional foci of uptake involve the iliac wings and pubic rami bilaterally, there was additional suspected lesion in the mid sternum. On 08/25/2023 she underwent bronchoscopy/EBUS. There were no endobronchial lesions identified. The right upper lobe opening was narrowed due to extrinsic compression. By ultrasound abnormal hypoechoic areas were noted in station 11L, station 4L, station 7, and station 11R. Multiple FNA biopsies were obtained from all sites. 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 Patient has remained hyponatremic during hospital stay sodium 129. 08/27/2023 patient spiked a fever of 101. Blood cultures, urine culture were sent. Sputum culture Gram stain has been ordered. I have started empiric coverage today with Zosyn and vanc. WBC 12.12 yesterday. Patient has developed a cough today. Possibility of pneumonia? Patient will need repeat chest imaging. MRI head obtained today: Result pending at this time. I have discussed with orthopedic surgery and patient will need orthopedic oncology for her bilateral pathological hip fractures since she has metastatic disease involving femur bilaterally. Patient is interested in chemotherapy at this time whether its full treatment d ose or palliative depending on what her options are. Since complete pathology report is not resulted yet she has not decided for sure what she will be doing. However what ever treatment there is available she is interested in it. Currently patient is under going pain management here with fentanyl patch, long- acting morphine and short acting morphine. Pain is pretty well-controlled with that. I also offered her epidural which she declined at this time. Patient did experience mild wheezing today bilaterally for which we have ordered DuoNeb. Have discussed with Dr. Devlin at [facility] who is an orthopedic oncologist who are willing to see patient in consultation for repair of fractures. Dr. Garcia (hospitalist). Following is oncology note recommendations: (1) Malignant neoplasm of hilus of right lung: Patient with CT evidence of right hilar mass and mediastinal adenopathy, confirmed on biopsy to be large cell carcinoma. She has multiple sites of metastatic involvement including liver, bilateral adrenal glands, and peritoneum, as well as multiple sites of bone involvement. She has associated pathologic left femoral neck fracture and hairline fracture of the subcapital right femoral head. At this time arrangements are being made to transfer to [facility] for orthopedic management. Patient and family are aware that she has extensive metastatic disease from a primary tumor in the right lung. We discussed the fact that it is a non-small cell type malignancy and that it is incurable. Her skeletal issues will have to be stabilized before considering any systemic therapy, but those options would potentially include chemotherapy and/or immunotherapy or possibly a targeted therapy, depending on the completed pathologic analysis of the biopsy, which may take up to several weeks. Those results will be forwarded onto [facility] as soon as they become available. In the meantime, she also should complete staging with head MRI with and without contrast. Bronchoscopy: Brief History: Chloe Candelario is a 63 year old female with past medical history significant for hypertension, hyperlipidemia, COPD, tobacco use disorder seen in the emergency room 07/31/2023 for sharp central chest pain radiating to her back. She had CTA 07/31/2023 which showed irregular soft tissue in the right hilar station at least 6.1 x 3.6 cm extending into mediastinum subcarinal station. Concerning for neoplasm. She had abdominal pain and CT abdomen pelvis suggestive of possible metastatic disease to liver and peritoneum Given her extensive smoking history-I have recommended her for bronchoscopic evaluation as well as endobronchial ultrasound-guided biopsies of hilar/mediastinal lymph nodes. She verbalized understanding and agreed for the procedure. Procedure: -Dx Bronchoscope w/BAL -Bronchoscopy w/ therapeutic aspiration of the tracheobronchial tree (clearance of airway secretions, removal of mucus plugs) -EBUS Sampling 3 of more nodes Indication: CT evidence of soft tissue density extending in right perihilar region, prominent subcarinal lymph node-suspicious for malignancy in patient with chronic smoking history Anesthesia: General anesthesia. Local anesthesia: The sal in the right and left mainstem bronchi were anesthetized with 1% lidocaine, 3 mL. Description of the procedure: The procedure was explained to the patient and the consent was obtained. The patient was brought to the OR. The patient underwent induction for general anesthesia and laryngeal mask airway (LMA) was placed. The bronchoscope was advanced through the LMA. The mobile vocal cords was visualized. After instillation of 1 mL 1% lidocaine local anesthesia- bronchoscope advanced into the trachea. Tracheal mucosa appeared normal, no endotracheal lesion was seen. There were some thick mucoid secretions which were suctioned right away. The sal was sharp. 1 mL each of 1% lidocaine was instilled at the level of sal, and into the the right and left mainstem bronchi for local anesthesia. In a systematic manner bilateral bronchial tree was then examined. The bronchoscope was then introduced into the right mainstem bronchus. Right upper lobe, middle lobe, lower lobe subsegments were inspected up to third subsegmental level. The right upper lobe opening is narrowed due to extrinsic compression. I was able to pass bronchoscope through the upper lobe opening and could visualize segmental openings. Bronchoscope was retracted into right bronchus intermedius and then advanced to inspect right middle lobe, right lower lobe and superior segment of right lower lobe segments. Mucosa appeared normal with no evidence of any endobronchial lesions. There were thick mucus secretions which were suctioned right away. The bronchoscope was advanced into the left mainstem bronchus. The left upper lobe, lingula, lower lobe were examined up to the third subsegmental level and no abnormalities were identified. Mucosa of left upper lobe, lingula, lower lobe appeared normal with no endobronchial lesion. There were thick mucus secretions which were suctioned right away. Bronchoscope was wedged into right upper lobe and obtained a bronchioloalveolar lavage. Bronchoscope was retracted and Endobronchial Ultrasound (EBUS) was introduced. Identified a abnormal hypoechoic areas in station 11 L, station 4L, station 7 and station 11 R. Using [id number] were taken from these stations; there was some evidence of bleeding which is controlled with instillation of cold saline and diluted epinephrine. After making sure there is no active bleeding, bronchoscope retracted and procedure terminated. Samples: 1. Bronchoalveolar lavage was performed after wedging the bronchoscope at the entrance of the anterior segment of right upper lobe. 30 mL of saline was instilled, fluid return was 15 mL. Bronchoalveolar lavage specimen was sent for cell count and differential, gram stain and culture, cytology B. EBUS guided Fine-needle aspiration biopsies were taken from station station 11 L, station 4L, station 7, station 11 R in that order of sequence 1. Total of 3 passes were made using needle aspiration from station 11 L; all the material was placed in formalin and sent for histopathology 2. Total of 4 passes were made using needle aspiration from station 4L; all the material was placed in formalin and sent for histopathology 3. Total of 6 passes were made using needle aspiration from station 7; material from 4 passes placed in formalin and sent for histopathology; material from 2 passes placed in RPMI to rule out lymphoma 4. Total of 3 passes were made using needle aspiration from station 11 R; all the material was placed in formalin and sent for histopathology Complications: None. Disposition: Patient is transferred back to floor and can be discharged from pulmonary standpoint. Pt and family are aware that I am going to call them to update final biopsy results once available. Physical Exam Narrative: General: NAD Cardiovascular: RRR. No gallops. No murmurs. Lungs: B/L wheezes today. On nasal cannula. Skin: No jaundice. No rashes. Abdomen: Normal bowel sounds, abdomen TTP in all 4 quadrants. No guarding. Extremities: No cyanosis or clubbing. Range of motion limited secondary to pain. Musculoskeletal: No erythematous joints. Neurological: Moves all 4 extremities. No myoclonus. Urinary Catheter Management: Minor: Cath Placed During This Visit: yes Reason for Continuing Indwelling Catheter: Acute Urinary Retention or Obstruction Urinary Catheter Date of Insertion: 08/22/23 Urinary Catheter Time of Insertion: 21:45 TS Data Studies Completed and Pending Pending at discharge Category Date Time Status Blood Culture Stat Lab 08/27/23 17:02 Results Bronchoalv Lavage Culture & GS Routine Lab 08/25/23 10:37 Results Urine Culture Stat Lab 08/27/23 19:20 Received MR head wo/w con [id number] Routine MRI 08/27/23 18:30 Ordered Cytology [PTH] Routine Pth 08/25/23 10:40 Received Pathology: Surgical [PTH] Routine Pth 08/25/23 11:51 Received Completed Studies During Hospitalization Category Date Time Status CT abdomen pelvis w con* [id number] Urgent Cat Scan 08/22/23 20:[address] head wo con* [id number] Routine Cat Scan 08/26/23 18:[address] hip LT w con [id number] Routine Cat Scan 08/24/23 14:46 Completed XR chest 1V portable [id number] Urgent Exams 08/22/23 20:38 Completed XR hip LT 1V wo/[place] pel [id number] Routine Exams 08/24/23 06:37 Completed MR hip LT wo con* [id number] Routine MRI 08/24/23 06:50 Completed MR lumbar spine wo/w con [id number] Stat MRI 08/23/23 11:53 Completed NM bone scan whole body* [id number] Routine Nuc Med 08/25/23 08:00 [place] [id number] Routine Ultrasound 08/23/23 14:47 Completed Laboratory Last Values WBC 9.65 10^3/uL (3.29-11.43) 08/27/23 04:35 RBC 3.37 10^6/uL (3.85-5.65) L 08/27/23 04:35 Hgb 9.50 g/dL (11.27-16.99) L 08/27/23 04:35 Hct 29.4 % (36-47) L 08/27/23 04:35 MCV 87.2 fl (85-98) 08/27/23 04:35 MCH 28.2 pg (27-33) 08/27/23 04:35 MCHC 32.3 g/dL (30-55) 08/27/23 04:35 RDW 12.8 % (12.1-15.1) 08/27/23 04:35 Plt Count 315 10^3/cmm (157-399) 08/27/23 04:35 MPV 9.7 fL (7.4-10.4) 08/27/23 04:35 Neut % (Auto) 70.8 % 08/27/23 04:35 Lymph % (Auto) 14.2 % 08/27/23 04:35 [place] % (Auto) 13.0 % 08/27/23 04:35 Eos % (Auto) 0.7 % 08/27/23 04:35 Baso % (Auto) 0.3 % 08/27/23 04:35 Neut # (Auto) 6.83 10^3/uL (1.8-7.7) 08/27/23 04:35 Lymph # (Auto) 1.4 10^3/uL (0.8-4.8) 08/27/23 04:35 [place] # (Auto) 1.3 10^3/uL (0.2-0.9) H 08/27/23 04:35 Eos # (Auto) 0.1 10^3/uL (0.0-0.8) 08/27/23 04:35 Baso # (Auto) 0.0 10^3/uL (0.0-0.1) 08/27/23 04:35 Nucleated RBC % (auto) 0 % 08/27/23 04:35 Nucleated RBCs # 0.0 /100WBC 08/27/23 04:35 ESR 64 mm/hr (0-15) H 08/23/23 02:21 D-Dimer 9.01 ug/mLFEU (0-0.59) H 08/23/23 15:06 Sodium 127 mmol/L (136-145) L 08/27/23 04:35 Potassium 3.9 mmol/L (3.5-5.1) 08/27/23 04:35 Chloride 90 mmol/L (98-107) L 08/27/23 04:35 Carbon Dioxide 25 mmol/L (22-29) 08/27/23 04:35 Anion Gap 15.9 (5-19) 08/27/23 04:35 BUN 11 mg/dL (8-23) 08/27/23 04:35 Creatinine 0.4 mg/dL (0.5-0.9) L 08/27/23 04:35 GFR Calculation 162.3 mL/min (90-130) H 08/27/23 04:35 Glucose 87 mg/dL (65-115) 08/27/23 04:35 Estimat Average Glucose 108 08/24/23 02:26 Hemoglobin A1c 5.4 % (4.0-6.0) 08/24/23 02:26 Calculated Osmolality 263 mOsm/kg (285-295) L 08/27/23 04:35 Calcium 8.4 mg/dL (8.5-10.5) L 08/27/23 04:35 Phosphorus 3.4 mg/dL (2.5-4.5) 08/26/23 05:50 Magnesium 2.0 mg/dL (1.7-2.3) 08/27/23 04:35 Iron 20 ug/dL (37-145) L 08/23/23 02:21 TIBC 202 mcg/dl 08/23/23 02:21 % Saturation 9.9 % (20-50) L 08/23/23 02:21 Unsat Iron Binding 182 ug/dL (112-347) 08/23/23 02:21 Total Bilirubin 0.3 mg/dL (0.15-1.2) 08/27/23 04:35 AST 16 U/L (0-32) 08/27/23 04:35 ALT 21 U/L (0-33) 08/27/23 04:35 Alkaline Phosphatase 79 U/L (35-105) 08/27/23 04:35 C-Reactive Protein 239.9 mg/L (0.0-4.9) H 08/23/23 02:21 NT-Pro-B Natriuret Pep 85 pg/mL (0-125) 08/23/23 02:21 Total Protein 5.6 g/dL (6.6-8.7) L 08/27/23 04:35 Albumin 2.8 g/dL (3.5-5.2) L 08/27/23 04:35 Globulin 2.8 g/dL (1.3-4.6) 08/27/23 04:35 Triglycerides 95 mg/dL (0-150) 08/24/23 02:26 Cholesterol 173 mg/dL (0-200) 08/24/23 02:26 LDL Cholesterol, Calc 119 mg/dL (50-129) 08/24/23 02:26 Total VLDL Cholesterol 19 mg/dL (0-30) 08/24/23 02:26 HDL Cholesterol 35 mg/dL (60-100) L 08/24/23 02:26 Cholesterol/HDL Ratio 4.94 mg/dL (0.0-4.40) H 08/24/23 02:26 Lipase 17 U/L (13-60) 08/22/23 20:21 Vitamin B12 1986 pg/mL (232-1245) H 08/23/23 02:21 Folate > 20.0 ng/mL (4.8-37.3) 08/24/23 02: TSH 2.04 uIU/mL (0.27-4.20) 08/23/23 02:21 Urine Color Yellow (Yellow) 08/22/23 21:47 Urine Appearance Sl hazy (CLEAR) A 08/22/23 21:47 Urine pH 5 (5-7) 08/22/23 21:47 Ur Specific [place] 1.015 (1.005-1.030) 08/22/23 21:47 Urine Protein Trace (Negative) 08/22/23 21:47 Urine Glucose (UA) Norm (Normal) 08/22/23 21:47 Urine Ketones 2+ (Negative) H 08/22/23 21:47 Urine Blood Trace (Negative) H 08/22/23 21:47 Urine Nitrate Negative (Negative) 08/22/23 21:47 Urine Bilirubin Neg (Negative) 08/22/23 21:47 Urine Urobilinogen Norm mg/dL (Negative) 08/22/23 21:47 Ur Leukocyte Esterase Negative (Negative) 08/22/23 21:47 Urine RBC 0-4 /hpf (0-2) H 08/22/23 21:47 Urine WBC 0-4 /hpf (0-5) H 08/22/23 21:47 Ur Squamous Epith Cells 0-4 /hpf (0-5) H 08/22/23 21:47 Amorphous Sediment Trace /hpf 08/22/23 21:47 Urine Bacteria Trace /hpf (NONE) 08/22/23 21:47 Ur Random Sodium 18 mmol/L 08/22/23 21:47 Ur Random Potassium 23 mmol/L 08/22/23 21:47 Ur Random Chloride 18 mmol/L 08/22/23 21:47 Ur Random Urea Nitrogn 421 mg/dL 08/22/23 21:47 Bronch Specimen Source Right upper lobe bal 08/25/23 10:37 Bronchial Fluid Color Slight pink 08/25/23 10:37 Bronchial Fluid Appearance Cloudy (CLEAR) 08/25/23 10:37 Bronch Cells Counted 200 08/25/23 10:37 Bronchial Neutrophils 12.00 % (0.9-2.3) H 08/25/23 10:37 Bronchial Lymphocytes 7.00 % (10.71-12.91) L 08/25/23 10:37 Bronchial Eosinophils 0.00 % (0.13-0.25) L 08/25/23 10:37 Bronchial Macrophages 81.00 % (83.6-86.8) L 08/25/23 10:37 Bronchial Diff Comment Yes 08/25/23 10:37 Lymphoma Panel See report 08/25/23 11:25 Radiology Impressions Chest X-Ray 08/22/23 20:38 IMPRESSION: No acute cardiopulmonary process. Abdomen/Pelvis CT 08/22/23 20:39 IMPRESSION: 1. Findings consistent with metastatic disease to the peritoneum, bilateral adrenal glands and liver, in particularly capsular deposits. 2. Post cholecystectomy with no biliary dilatation. 3. Diverticulosis with no changes of diverticulitis. COMMENTS: Consistent with the [employer]'s Incidental Findings Committee white paper (J Am Jade Radiol 2018): Any incidental renal lesion less than 1 cm or classified as too small to characterize, or any incidental cystic renal lesion characterized as simple-appearing, is likely benign. No follow-up imaging is recommended for these lesions per consensus recommendations based on imaging criteria. Lumbar Spine CT 08/22/23 20:39 IMPRESSION: 1. No severe thecal sac compression. 2. No metastatic osseous lesion in the lumbar spine. Lumbar Spine MRI 08/23/23 11:53 IMPRESSION: Mild degenerative changes. Most prominently there is moderate neural foraminal narrowing and left-sided L5-S1 related to broad-based lateral protrusion and underlying osteophyte. No abnormal enhancement. Venous Duplex 08/23/23 14:47 IMPRESSION: No evidence of deep vein thrombosis. Hip X-Ray 08/24/23 06:37 IMPRESSION: 1. Acute fracture of the subcapital femoral neck on the left. Recent Clincial Data Last Vital Signs Temp 97.5 F L 08/28/23 07:32 Pulse 101 H 08/28/23 08:22 Resp 16 08/28/23 08:15 BP 130/75 08/28/23 07:32 Pulse Ox 95 08/28/23 08:15 O2 Del Method Nasal Cannula 08/28/23 08:15 O2 Flow Rate 2 08/28/23 08:15 Vital Signs Temp Pulse Resp BP Pulse Ox O2 Del Method O2 Flow Rate 08/28/23 08:22 101 H 08/28/23 08:15 104 H 16 95 Nasal Cannula 2 08/28/23 07:32 97.5 F L 100 20 H 130/75 95 Nasal Cannula 08/28/23 05:35 100 08/28/23 04:00 98.9 F 104 H 18 125/78 93 Nasal Cannula 2 08/28/23 00:00 98.0 F 97 18 126/77 94 Nasal Cannula 2 08/27/23 22:00 97 08/27/23 20:41 104 H 08/27/23 20:32 101 H 20 H 95 Nasal Cannula 2 08/27/23 20:25 16 Intake & Output/Weight 08/26/23 08/27/23 08/28/23 08/29/23 06:59 06:59 06:59 06:59 Intake Total 1005 / 1005 2078.75 / 2078.75 765 / 765 Output Total 1601 / 1601 550 / 550 1050 / 1050 Balance -596 / -596 1528.75 / 1528.75 -285 / -285 Weight 87.798 kg 106.821 kg 105.687 kg Vitals Last Vital Signs Temp 97.5 F L 08/28/23 07:32 Pulse 101 H 08/28/23 08:22 Resp 16 08/28/23 08:15 BP 130/75 08/28/23 07:32 Pulse Ox 95 08/28/23 08:15 O2 Del Method Nasal Cannula 08/28/23 08:15 O2 Flow Rate 2 08/28/23 08:15 TS Medications Medications Albuterol Sulfate (Albuterol 2.5 Mg/3 Ml Neb) 2.5 mg INHALATION Q4H.RESPIRATORY PRN PRN Reason: WHEEZING Last Admin: 08/28/23 08:13 Dose: 2.5 mg Albuterol/Ipratropium (Ipratropium-Albuterol 3 Ml Neb) 3 ml INHALATION Q4H PRN PRN Reason: SHORTNESS OF BREATH Benzocaine (Cetylpyridinium Lozenge) 1 each MUCOUS MEM ONCE PRN PRN Reason: SORE THROAT Budesonide (Budesonide 0.5 Mg/2 Ml Neb) 0.5 mg INHALATION BID.RESPIRATORY JAMES Last Admin: 08/28/23 08:13 Dose: 0.5 mg Cyclobenzaprine HCl (Cyclobenzaprine 10 Mg Tablet) 5 mg PO TID PRN PRN Reason: MUSCLE SPASMS Last Admin: 08/27/23 20:25 Dose: 5 mg Enoxaparin Sodium (Enoxaparin 40 Mg/0.4 Ml Syringe) 40 mg SUBCUT BEDTIME [facility] Last Admin: 08/25/23 21:29 Dose: 40 mg Fentanyl (Fentanyl 25 Mcg Patch) 1 patch TRANSDERMA Q72H [facility] Last Admin: 08/26/23 11:30 Dose: 1 patch Hydralazine HCl (Hydralazine 20 Mg/Ml Inj 1 Ml) 10 mg IVP Q4H PRN PRN Reason: SYSTOLIC BLOOD PRESSURE Hydromorphone HCl (Hydromorphone 1 Mg/Ml Inj 1 Ml) 1 mg IVP Q4H PRN PRN Reason: SEVERE PAIN Last Admin: 08/27/23 14:33 Dose: 1 mg Lorazepam (Lorazepam 2 Mg/Ml Inj 10 Ml Mdv) 0.5 mg IVP TID PRN PRN Reason: ANXIETY Last Admin: 08/27/23 15:50 Dose: 0.5 mg Magnesium Hydroxide (Magnesium Hydroxide 30 Ml Udc) 30 ml PO BEDTIME [facility] Last Admin: 08/27/23 22:05 Dose: Not Given Morphine Sulfate (Morphine Er (12 Hr) 15 Mg Tablet) 15 mg PO BID [facility] Last Admin: 08/28/23 08:07 Dose: 15 mg Morphine Sulfate (Morphine Ir 15 Mg Tablet) 15 mg PO Q4H PRN PRN Reason: SEVERE PAIN Last Admin: 08/27/23 20:25 Dose: 15 mg Naloxone HCl (Naloxone 0.4 Mg/Ml Sdv) 0.4 mg IVP PRN PRN PRN Reason: RESPIRATORY RATE < 8/MIN Non-Formulary Med ( Pravastatin 40 Mg Tab) 1 each PO QPM [facility] Last Admin: 08/27/23 17:57 Dose: 1 each Ondansetron HCl (Ondansetron 2 Mg/Ml Sdv 2 Ml) 4 mg IVP Q8H PRN PRN Reason: vomiting, or N/V if npo Ondansetron HCl (Ondansetron 4 Mg Tablet) 4 mg PO Q8H PRN PRN Reason: NAUSEA Senna/Docusate Sodium (Sennosides-Docusate Tablet) 1 tab PO BID [facility] Last Admin: 08/28/23 08:07 Dose: 1 tab Discontinued Medications Albuterol/Ipratropium (Ipratropium-Albuterol 3 Ml Neb) 3 ml INHALATION Q4H PRN PRN Reason: SHORTNESS OF BREATH Last Admin: 08/23/23 09:53 Dose: 3 ml Atorvastatin Calcium (Atorvastatin 40 Mg Tablet) 20 mg PO QPM [facility] Last Admin: 08/24/23 17:46 Dose: Not Given Benzocaine (Cetylpyridinium Lozenge) 1 each MUCOUS MEM ONCE ONE Stop: 08/25/23 09:38 Last Admin: 08/25/23 13:34 Dose: Not Given Dexamethasone (Dexamethasone 10 Mg/Ml Inj) 10 mg IVP Q6H [facility] Last Admin: 08/23/23 12:52 Dose: 10 mg Dexamethasone (Dexamethasone 4 Mg/Ml Inj) 4 mg IVP Q6H [facility] Last Admin: 08/24/23 12:44 Dose: 4 mg Dexamethasone (Dexamethasone 4 Mg/Ml Inj) Confirm Administered Dose 4 mg .ROUTE .STK-MED ONE Stop: 08/25/23 10:11 Diphenhydramine HCl (Diphenhydramine 50 Mg/Ml Sdv 1ml) Confirm Administered Dose 50 mg .ROUTE .STK-MED ONE Stop: 08/25/23 10:11 Epinephrine HCl (Epinephrine 1 Mg/Ml Inj) 1 mg XX ONCE ONE Stop: 08/25/23 11:44 Last Admin: 08/25/23 11:40 Dose: 1 mg Fentanyl (Fentanyl 12 Mcg Patch) 1 patch TRANSDERMA Q72H [facility] Last Admin: 08/24/23 23:23 Dose: 1 patch Fentanyl (Fentanyl 50 Mcg/Ml Inj 2ml) Confirm Administered Dose 100 mcg .ROUTE .STK-MED ONE Stop: 08/25/23 09:57 Hydromorphone HCl (Hydromorphone 1 Mg/Ml Inj 1 Ml) 1 mg IVP ONCE ONE Stop: 08/22/23 22:50 Last Admin: 08/22/23 22:57 Dose: 1 mg Hydromorphone HCl (Hydromorphone 4 Mg Tablet) 2 mg PO Q4H PRN PRN Reason: PAIN Last Admin: 08/23/23 07:44 Dose: 2 mg Hydromorphone HCl (Hydromorphone 1 Mg/Ml Inj 1 Ml) 0.5 mg IVP ONCE ONE Stop: 08/23/23 02:55 Last Admin: 08/23/23 03:32 Dose: 0.5 mg Hydromorphone HCl (Hydromorphone 4 Mg Tablet) 1 mg PO Q4H PRN PRN Reason: PAIN Last Admin: 08/24/23 22:27 Dose: 1 mg Hydromorphone HCl (Hydromorphone 4 Mg Tablet) 1.5 mg PO Q4H PRN PRN Reason: PAIN Hydromorphone HCl (Hydromorphone 1 Mg/Ml Inj 1 Ml) 0.5 mg IVP Q4H PRN PRN Reason: SEVERE PAIN Last Admin: 08/26/23 12:20 Dose: 0.5 mg Hydromorphone HCl (Hydromorphone 1 Mg/Ml Inj 1 Ml) Confirm Administered Dose 1 mg .ROUTE .STK-MED ONE Stop: 08/25/23 11:17 Sodium Chloride (Sodium Chloride 0.9%) 1,000 mls @ 75 mls/hr IV .[id number] [facility] Last Infusion: 08/27/23 14:40 Dose: Infused Sodium Chloride (Sodium Chloride 0.9%) 1,000 mls @ 30 mls/hr IV .Q24H [facility] Stop: 08/26/23 09:44 Last Admin: 08/25/23 13:35 Dose: Not Given Sodium Chloride (Sodium Chloride 0.9%) 1,000 mls @ 30 mls/hr IV .Q24H [facility] Stop: 08/26/23 09:44 Iohexol (Iohexol 350 Mg/Ml 500 Ml Btl (Per Ml)) 0 ml IV ONCE ONE Stop: 08/22/23 21:22 Last Admin: 08/22/23 21:21 Dose: 100 ml Iohexol (Iohexol 350 Mg/Ml 500 Ml Btl (Per Ml)) 0 ml IV ONCE ONE Stop: 08/24/23 08:09 Last Admin: 08/24/23 08:30 Dose: 100 ml Lactulose (Lactulose Oral Liq 20 Gm/30 Ml Udc) 20 gm PO Q12H [facility] Stop: 08/25/23 06:01 Last Admin: 08/25/23 06:51 Dose: Not Given Lidocaine HCl (Lidocaine 1% Inj 10 Ml (Per Ml)) 10 ml XX ONCE ONE Stop: 08/25/23 09:19 Last Admin: 08/25/23 10:35 Dose: 4 ml Lidocaine HCl (Lidocaine 1% Inj 20 Ml) 0.1 ml INTRADERMA PRN PRN PRN Reason: anesthetic prior to IV start Stop: 08/26/23 09:36 Lidocaine HCl (Lidocaine 2% Viscous 15 Ml Udc) 1 ml TOPICAL PRN PRN PRN Reason: Anesthetic prior to IV start Magnesium Hydroxide (Magnesium Hydroxide 30 Ml Udc) 30 ml PO ONCE ONE Stop: 08/23/23 11:34 Last Admin: 08/23/23 12:52 Dose: 30 ml Midazolam HCl (Midazolam 1 Mg/Ml Inj 2 Ml) 2 mg IVP Q5M PRN PRN Reason: Preop Anxiety Morphine Sulfate (Morphine 4 Mg/Ml Sdv 1 Ml) 4 mg IVP ONCE ONE Stop: 08/22/23 20:39 Last Admin: 08/22/23 20:50 Dose: 4 mg Morphine Sulfate (Morphine 4 Mg/Ml Sdv 1 Ml) 1 mg IVP Q4H PRN PRN Reason: SEVERE PAIN Last Admin: 08/26/23 14:15 Dose: 1 mg Morphine Sulfate (Morphine 4 Mg/Ml Sdv 1 Ml) 2 mg IVP Q2H PRN PRN Reason: SEVERE PAIN Last Admin: 08/27/23 11:12 Dose: 2 mg Ondansetron HCl (Ondansetron 2 Mg/Ml Sdv 2 Ml) 4 mg IVP ONCE ONE Stop: 08/22/23 20:39 Last Admin: 08/22/23 20:50 Dose: 4 mg Ondansetron HCl (Ondansetron 2 Mg/Ml Sdv 2 Ml) Confirm Administered Dose 4 mg .ROUTE .STK-MED ONE Stop: 08/25/23 10:11 Phenylephrine HCl (Phenylephrine 10 Mg/Ml Sdv 1 Ml) Confirm Administered Dose 10 mg .ROUTE .STK-MED ONE Stop: 08/25/23 09:14 Propofol (Propofol 10 Mg/Ml Sdv 20 Ml) Confirm Administered Dose 200 mg .ROUTE .STK-MED ONE Stop: 08/25/23 09:15 Allergies oxycodone [From Percocet] Allergy (Verified 07/25/23 11:52) ALGY-Hives Home Medications L.acidophil-L.casei-B.bifid-B.longum-FOS 2 billion cell-50 mg capsule (Probiotic Blend) 1 cap PO QAM 10/09/22 [History Confirmed 08/23/23] cetirizine 10 mg tablet (Zyrtec) 10 mg PO QAM PRN seasonal allergies 10/09/22 [History Confirmed 08/23/23] daggmpyx-lyml-xgrz 8 mg-folic 400 mcg-K 50 mcg-lutein 300 mcg tablet (Centrum Silver Women) 1 tab PO QAM 10/09/22 [History Confirmed 08/23/23] pravastatin 40 mg tablet 40 mg PO QPM 04/25/23 [History Confirmed 08/23/23] tramadol 50 mg tablet 50 mg PO Q6H PRN pain #10 tabs 04/25/23 [Rx Confirmed 08/23/23] acetaminophen 500 mg tablet (Acetaminophen Extra Strength) 1,000 mg PO QPM 07/25/23 [History Confirmed 08/23/23] albuterol sulfate 90 mcg/actuation aerosol inhaler 2 inh inhalation Q6H PRN shortness of breath or wheezing #8.5 grams 07/25/23 [Rx Confirmed 08/23/23] cholecalciferol (vitamin D3) 125 mcg (5,000 unit) tablet (Vitamin D3) 125 mcg PO DAILY 07/25/23 [History Confirmed 08/23/23] guaifenesin 1,200 mg tablet, extended release 12 hr 1,200 mg PO BID #14 tabs 07/25/23 [Rx Confirmed 08/23/23] ipratropium 0.5 mg-albuterol 3 mg (2.5 mg base)/3 mL nebulization soln 3 ml inhalation Q6H PRN Shortness Of Breath Or Wheezing 07/25/23 [History Confirmed 08/23/23] lisinopril 20 mg tablet 20 mg PO QPM 07/25/23 [History Confirmed 08/23/23] naproxen sodium 220 mg capsule (Aleve) 440 mg PO DAILY 07/25/23 [History Confirmed 08/23/23] lzgyp-5r-egv-epa-fish oil 120 mg-180 mg-60 mg-1,200 mg capsule, DR (Fish Oil) 1 cap PO DAILY 07/25/23 [History Confirmed 08/23/23] naproxen 500 mg tablet (Naprosyn) 500 mg PO BID PRN pain #20 tabs 08/01/23 [Rx Confirmed 08/23/23] Discharge Plan Discharge Patient Disposition: Xfer Other Condition: Stable Prescriptions: No Action pravastatin 40 mg tablet 40 mg PO QPM ipratropium-albuterol 0.5 mg-3 mg(2.5 mg base)/3 mL solution for nebulization 3 ml INHALATION Q6H PRN (Reason: Shortness Of Breath Or Wheezing) lisinopril 20 mg tablet 20 mg PO QPM acetaminophen [Acetaminophen Extra Strength] 500 mg Tablet 1,000 mg PO QPM cholecalciferol (vitamin D3) [Vitamin D3] 125 mcg (5,000 unit) Tablet 125 mcg PO DAILY naproxen sodium [Aleve] 220 mg Capsule 440 mg PO DAILY Fish Oil 120 mg-180 mg- 60 mg-1,200 mg Capsule,Delayed Release(Dr/Ec) 1 cap PO DAILY albuterol sulfate 90 mcg/actuation HFA aerosol inhaler 2 inh inhalation Q6H PRN (Reason: shortness of breath or wheezing) Qty: 8.5 0RF guaifenesin 1,200 mg tablet extended release 12hr 1,200 mg PO BID Qty: 14 0RF cetirizine [Zyrtec] 10 mg Tablet 10 mg PO QAM PRN (Reason: seasonal allergies) Centrum Silver Women 8 mg iron-400 mcg-300 mcg Tablet 1 tab PO QAM Probiotic Blend 2 billion cell-50 mg Capsule 1 cap PO QAM Rx Instructions: give with meal/snack tramadol 50 mg tablet 50 mg PO Q6H PRN (Reason: pain) Qty: 10 0RF naproxen [Naprosyn] 500 mg tablet 500 mg PO BID PRN (Reason: pain) Qty: 20 0RF Referrals: Vanessa Alvarado DO [Primary Care Provider] - Discharge Diet: Regular Discharge Activity: Resume usual activity Transfer Attestations Time Spent in Transfer Care: greater than 30 min Quality Metrics Clinical Quality Measures [ No reported AMI, CVA or VTE this stay] Coding Level of Care Code 99022 Total time (in minutes) for Discharge: 70 Diagnoses Malignant neoplasm of hilus of right lung C34.01
[2023-08-28] MEDS: morphine IR 15 mg Tablet PO ×2 (09:28→14:26)
[2023-08-28] MEDS: cyclobenzaprine 10 mg Tablet 5 MG PO (09:29)
[2023-08-28] MEDS: morphine 4 mg/mL SDV 1 mL 2 MG IVP (09:57)
[2023-08-28] MEDS: LORazepam 2 mg/mL INJ 10 mL MDV 0.5 MG IVP ×3 (09:58→15:15)
--- NOTE | 2023-08-28 10:15 | MR_ITS ---
WS: [id number] MRI HEAD WITH CONTRAST TECHNIQUE: Sagittal T1, T2 axial, T2 axial FLAIR, axial susceptibility weighted imaging, axial diffus ion weighted images, and coronal T2 images were obtained. Pre and post-T1 axial and post T1 coronal i mages. ADC and FSPGR images. CLINICAL INFORMATION: brain mets COMPARISON: None. FINDINGS: No evidence of restricted diffusion to suggest acute ischemia. Ventricular system and basal cisterns are patent. Mild small vessel changes. Mild parenchymal volume loss. Normal posterior fossa. Normal v ascular flow voids at the skull base. No extra-axial fluid collections. No evidence of mass or mass e ffect. Paranasal sinuses are well aerated. Normal posterior nasopharynx. Mild mucosal thickening in t he mastoid air cells. No hemosiderin on the susceptibly weighted images. Normal optic chiasm and pitu itary infundibulum. Mild symmetric atrophy temporal lobes and hippocampal formations. 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 Enhancing metastatic lesions largest invol ving the bilateral frontal and parietal calvarium. Tiny amount of underlying dural enhancement underl luigi the bilateral frontal and parietal lesions. No evidence of intracranial edema or mass effect. No enhancing intraparenchymal lesions. IMPRESSION: 1. No evidence of enhancing intraparenchymal metastasis. 2. Enhancing calvarial lesions as seen on the recent bone scan, the largest LEFT parietal calvarium extending to the inner table with a tiny amount of underlying dural thickening and enhancement. No ed ventura or mass effect. 3. Additional smaller bilateral frontal and parietal lesions with a small amount of underlying dural thickening and enhancement. No edema or mass effect. 4. Mild small vessel changes with mild parenchymal volume loss. 5. No other acute findings.
[2023-08-28] MEDS: gadobenate dimeglumine 20 mL vial IV (10:39)
[2023-08-28] MEDS: HYDROmorphone 1 mg/mL INJ 1 mL IVP (12:28)
[2023-08-28] MEDS: vancomycin 1,250 MG/250 ML PIGGYBACK 250 MG IV (12:31)
[2023-08-28] MEDS: piperacillin-tazobactam 3.375 GM in sodium chloride 0.9% (plus) 50 ML IV (13:40)
[2023-09-02 13:43] LABS: PD-L1 (Clone 22C3) by IHC BBPL See Report
== END 2023-08-28 15:15 | disposition short-term general hospital (02) | DRG 181 ==
LOC: ER 22:58 → MEDSURG 23:11
PROVIDERS: Internal Medicine Pulmonary Disease; Student in an Organized Health Care Education/Training Program; Admitting Provider Internal Medicine; Emergency Provider Physician Assistant; PCP Family Medicine; Visit Provider Internal Medicine
PROC: BB4BZZZ Ultrasonography of Pleura (ICD-10-PCS; principal; 2023-08-25 10:00)
PROC: 0BJ08ZZ Inspection of Tracheobronchial Tree, Via Natural or Artificial Opening Endoscopic (ICD-10-PCS; CPT 31622; 2023-08-25 10:00)
DX: C34.01 Malignant neoplasm of right main bronchus (principal); C78.6 Secondary malignant neoplasm of retroperitoneum and peritoneum; C79.51 Secondary malignant neoplasm of bone; C78.7 Secondary malignant neoplasm of liver and intrahepatic bile duct; C79.72 Secondary malignant neoplasm of left adrenal gland; C79.71 Secondary malignant neoplasm of right adrenal gland; M84.552A Pathological fracture in neoplastic disease, left femur, initial encounter for fracture; M84.551A Pathological fracture in neoplastic disease, right femur, initial encounter for fracture; E22.2 Syndrome of inappropriate secretion of antidiuretic hormone; J98.2 Interstitial emphysema; I10 Essential (primary) hypertension; R14.0 Abdominal distension (gaseous); R33.9 Retention of urine, unspecified; Z99.81 Dependence on supplemental oxygen; E78.5 Hyperlipidemia, unspecified; K59.00 Constipation, unspecified; R19.7 Diarrhea, unspecified; F41.9 Anxiety disorder, unspecified; D64.9 Anemia, unspecified; R53.81 Other malaise; E87.8 Other disorders of electrolyte and fluid balance, not elsewhere classified; E83.52 Hypercalcemia; R63.4 Abnormal weight loss; Z68.38 Body mass index [BMI] 38.0-38.9, adult; F32.A Depression, unspecified; F17.210 Nicotine dependence, cigarettes, uncomplicated
CPT/HCPCS: 31624; 31645; 31653; 36415; 51702; 70450; 70553; 71045; 72158; 73501; 73701; 73721; 74177; 78306; 80048; 80053; 80061; 80503; 81001; 82436; 82607; 82746; 83036; 83540; 83550; 83690; 83735; 83880; 84100; 84133; 84300; 84443; 84540; 85025; 85378; 85651; 86140; 87040; 87070; 87086; 87205; 88112; 88184; 88185; 88305; 88341; 88342; 89050; 93970; 94640; 94762; 96372; 96374; 96375; 97161; 97530; 99285; A9561; A9577; G0378; J0171; J1100; J1170; J1200; J1650; J2060; J2270; J2371; J2405; J2543; J2704; J3010; J3370; J7030; J7613; J7626; Q9967